=== PATIENT | female | born 1940 | race African-American/Black ===

== ENCOUNTER 2017-03-29 19:42 | Inpatient (IN) | payer MEDICARE ==
[2017-03-29 21:32] LABS: #Eosinphils 0.1 thou/uL (0.0-0.7); #Lymphocytes 0.9 thou/uL (1.20-3.40); #Monocytes 0.8 thou/uL (0.11-0.59); #Neutrophils 10.4 thou/uL (1.40-6.50); %Basophils 0.2 % (0.0-1.0); %Eosinophils 1.1 % (0.0-10.0); %Monocytes 6.3 % (0.0-10.0); %Neutrophils 85.4 % (42.0-75.0); Hemoglobin 12.2 g/dL (12.0-16.0); Mean Corpuscular HGB CONC 32.1 g/dL (32.0-36.0); Mean Corpuscular Hemoglobin 25.1 pg (27.0-31.0); Mean Corpuscular Volume 78.3 fl (81.0-99.0); Mean Platelet Volume 7.3 fL (7.4-10.4); Platelet Count 263 thou/uL (130-400); RBC Distribution Width 14.5 % (11.5-14.5); Red Blood Cell (RBC) Count 4.86 mill/uL (4.20-5.40); White Blood Cell (WBC) Count 12.2 thou/uL (4.8-10.8)
[2017-03-29 21:47] LABS: ALT (SGPT) 13 U/L (8-55); AST (SGOT) 13 U/L (5-34); Albumin 3.8 g/dL (3.4-4.8); Alkaline Phosphatase 104 U/L (40-150); Anion Gap 18 mmol/L (10-20); BUN (Urea Nitrogen) 14 mg/dL (9.8-20.1); Bilirubin, Total 0.3 mg/dL (0.2-1.2); Calc. Creatinine Clearance 0 mL/min (70-130); Calcium 9.8 mg/dL (7.8-10.44); Carbon Dioxide 21 mmol/L (23-31); Chloride 101 mmol/L (98-107); Estimated GFR-MDRD 57; Globulin 3.7 g/dL (2.4-3.5); Glucose 145 mg/dL (83-110); Protein, Total 7.5 g/dL (6.0-8.3); Sodium 136 mmol/L (136-145)
[2017-03-29 22:30] LABS: Acetaminophen Less than 6.0 mcg/mL (10.0-30.0); Alcohol Less than 10 mg/dL (Less than 10); Salicylate Less than 8.0 mg/dL (15.0-30.0)
[2017-03-29 22:44] LABS: CKMB 2.8 ng/mL (0-6.6); Troponin I Less than 0.010 ng/mL (< 0.028)
--- NOTE | 2017-03-29 22:48 | CT ---
CT BRAIN WITHOUT CONTRAST 03/29/17 HISTORY: New onset seizures. FINDINGS: Comparison made with exam of 09/01/07. There are changes of chronic small vessel ischemic disease in the periventricular white matter. The v entricular size is appropriate and the basilar cisterns patent. No evidence of infarct, hemorrhage, m idline shift or abnormal extra-axial fluid collections are seen. The bony calvarium is intact. The visualized paranasal sinuses and mastoid air cells are well aerated . IMPRESSION: No CT evidence of acute intracranial process. POS: [facility]
[2017-03-30 05:20] LABS: Amphetamine Not Detected (NotDetected); Barbiturates Screen Not Detected (NotDetected); Benzodiazepine Screen Not Detected (NotDetected); Cocaine Metabolite Screen Not Detected (NotDetected); Medtox Control Line Valid? VALID (VALID); Medtox Reader # READER 1; Methadone Not Detected (NotDetected); Methamphetamine Not Detected (NotDetected); Opiate Screen Not Detected (NotDetected); Oxycodone Screen Not Detected (NotDetected); Phencyclidine (PCP) Not Detected (NotDetected); THC/Cannabinoid Screen Not Detected (NotDetected); Tricyclic Screen Not Detected (NotDetected)
--- NOTE | 2017-03-30 12:25 | MRI ---
BRAIN MRI WITH AND WITHOUT CONTRAST: Date: 03-30-17 Comparison: None. History: New onset seizures. Technique: Multiplanar, multisequence MR imaging of the brain provided with and without contrast gianfranco bach the seizure protocol. FINDINGS: The diffusion weighted imaging demonstrates no evidence for acute infarction. The coronal gradient echo imaging demonstrates no evidence for intracranial hemorrhage. Regional bone marrow signal intensity appears grossly unremarkable. Incidental note is made of a part ially empty sella turcica. The imaged paranasal sinuses/mastoid air cells appear grossly unremarkable. There is moderate diffuse cerebral volume loss with associated prominence of the CSF containing space s. There is extensive periventricular, deep, and subcortical white matter T2 and FLAIR hyperintensity , evidence of significant small vessel disease. Hippocampi are grossly symmetric in size, structure, and signal intensity. Post contrast imaging demo nstrates no abnormal enhancement within the brain parenchyma. IMPRESSION: 1. Prominent small vessel disease and cerebral volume loss. POS: [facility]
[2017-03-30 14:07] VITALS: BMI 27.2
[2017-03-30] MEDS ORDERED: Lisinopril 10 MG TAB PO SCH (18:30)
[2017-03-30] MEDS: cloNIDine 0.1 MG TAB PO PRN (22:05)
--- NOTE | 2017-03-31 05:50 | HP ---
DATE OF ADMISSION: 03/29/2017 REASON FOR ADMISSION AND CHIEF COMPLAINT: Seizure episode. HISTORY OF PRESENT ILLNESS: Ms. Lozada is a 76-year-old -Cuban female with past medical hi story of hyperlipidemia, anxiety and depression, who was brought by the family because of seizure epi sode. The patient is a poor historian who cannot give any history. Regarding to the ER physician's note, the patient had an episode of seizure, which lasted about 2-2.5 minutes. She lost control of b ladder, was confused after the episode like a postictal state. She never had this kind of incident b efore. No history of fall. No chest pain. No shortness of breath, so the [facility] and says she had like a generalized tonic-clonic seizures. In the ER, the patient was evaluated and found to have normal workup. The patient is being admitted for further evaluation and management and was also found to have elevated blood pressure in the ER. PAST MEDICAL HISTORY: Includes hyperlipidemia and history of anxiety and depression, but not on any medications. PAST SURGICAL HISTORY: Nothing significant. CURRENT MEDICATIONS: None. ALLERGIES: NKDA. FAMILY HISTORY: Nothing of interest. SOCIAL HISTORY: The patient lives with her , has no children. No history of smoking. No his tory of alcohol intake. REVIEW OF SYSTEMS: Cardiovascular: No chest pain. No shortness of breath. Respiratory: No fever or cough. Gastrointestinal: No nausea or vomiting. No abdominal pain. Genitourinary: No dysuria or hematuria. Central Nervous System: No headache, no dizziness. PHYSICAL EXAMINATION: GENERAL: The patient is alert, awake and oriented x3. VITAL SIGNS: Temperature 98, pulse 96, respirations 20 and blood pressure 188/84. HEENT: Head is normocephalic and atraumatic. Pupils are equal and reactive. Nasopharynx is pink an d moist. NECK: Supple. No JVD. LUNGS: Bilateral air entry present. No rales, no rhonchi. HEART: S1, S2 regular. ABDOMEN: Soft. No distention, no tenderness. Normal bowel sounds. RECTAL: Deferred. CENTRAL NERVOUS SYSTEM: The patient is alert, awake and oriented x2. Motor system power 4/5 in all extremities. Deep tendon reflexes 2+ bilaterally. Plantars downgoing. Sensory intact. LABORATORY AND X-RAY FINDINGS: CBC shows a WBC of 12, hemoglobin 12, hematocrit 38 and platelets 263 . Metabolic panel: Sodium 136, potassium 4, chloride 101, CO2 of 21, urea nitrogen 14, creatinine 1 .1 and glucose 140. CK-MB 2.8, troponin I less than 0.010. Urine drug screen negative. CT of the b rain, no evidence of acute intracranial process. EKG showed normal sinus rhythm, no acute ST-T wave changes seen. ASSESSMENT: 1. Possible new onset seizure. 2. History of hyperlipidemia. 3. History of anxiety and depression. 4. Hypertension, uncontrolled. PLAN: 1. Vital signs q.4 hours. 2. Activity: As tolerated. 3. Allergies: NKDA. 4. Diet: Regular. 5. Hep-Lock. 6. Lisinopril 10 mg daily. 7. Lipid profile in the morning. 8. We will obtain EEG. 9. MRI of the brain. 10. Neurology consult.
[2017-03-31 06:11] LABS: Cardiac Risk 4.4 (Less than 4.5)
--- NOTE | 2017-03-31 08:53 | EEG ---
Referring Physician: Rachid STEEN EEG # [id number] TEST TYPE: ROUTINE PORTABLE INPATIENT REPORT: AN EEG USING THE INTERNATIONAL TEN-TWENTY SYSTEM OF ELECTRODE PLACEMENT WAS PERFORMED. The waking background is a medium amplitude well modulated 9-10 hertz alpha frequency. The patient remained awake throughout the study. Photic stimulation was unremarkable. No epileptiform features were associated with the patient's rhythmic movements. IMPRESSION: THIS IS A NORMAL AWAKE EEG WITHOUT EVIDENCE OF SEIZURE ACTIVITY ASSOCIATED WITH HER MOVEMENTS. Air Export Agent: JOEY Mud Jack Nozzleman: [email or web address] MARI
[2017-03-31] MEDS ORDERED: Lisinopril 10 MG TAB PO SCH ×2 (09:00→13:45)
[2017-03-31] MEDS: cloNIDine 0.1 MG TAB PO PRN (11:59)
[2017-03-31] MEDS ORDERED: levETIRAcetam 500 MG TAB PO SCH (19:00)
--- NOTE | 2017-04-01 01:39 | CON ---
DATE OF CONSULTATION: 03/31/2017 REFERRING PHYSICIAN: Dr. Brian Richardson. REASON FOR CONSULTATION: Seizure. HISTORY OF PRESENT ILLNESS: Ms. Lozada is a pleasant 76-year-old -Welsh female who has bee n consulted for evaluation of seizure. The patient's is at the bedside, who provides the his tory. He reports that the patient was sitting down and suddenly became unresponsive. He tried to ca ll her name but was not responding. Then, a few seconds later, she started having generalized tonic- clonic seizure. This lasted approximately 5 minutes. He had called EMS. On arrival of EMS initiall y, the patient was drowsy and sleepy; however, she had another episode of generalized tonic-clonic co nvulsions that lasted again approximately 5 minutes. She did not have any tongue biting, but there w as loss of bladder control noted. She did have postictal confusion that lasted until she was in the ER and she had no recollection of how she got to the ER. She did not have any headache, chest pain, palpitation, nausea, vomiting, abdominal pain, numbness, tingling, or weakness. She has no prior his tory of seizure disorder. No prior history of head trauma or DECORATION CHECKER infection and no family history of seizures. PAST MEDICAL HISTORY: Significant for hyperlipidemia, anxiety, and depression. PAST SURGICAL HISTORY: Not significant. SOCIAL HISTORY: She lives with her . She denies smoking, alcohol use, or illicit drug use. FAMILY HISTORY: Noncontributory. CURRENT MEDICATIONS: None. ALLERGIES: No known drug allergies. REVIEW OF SYSTEMS: As mentioned in the HPI, otherwise negative. PHYSICAL EXAMINATION: VITAL SIGNS: Blood pressure of 121/58, pulse of 76, temperature of 98.5, respirations of 16, O2 sats of 99% on room air. GENERAL: Well-developed, well-nourished, -Welsh female, in no apparent distress. RESPIRATORY: Clear to auscultation bilaterally. CARDIOVASCULAR: Regular rate and rhythm. NEUROLOGIC: Mental status: The patient is awake, alert, oriented x3. Speech and language: Fluent speech. Cranial nerves: Pupils are 3 mm and reactive. Visual mayers are intact. Extraocular muscl es are intact. No nystagmus noted. Face is symmetric. Tongue and uvula are midline. Motor exam sh owed normal tone and bulk with a 5/5 strength in both upper and lower extremities. Sensory: Sensati on is intact and symmetric. Deep tendon reflexes 2+ reflexes in both upper and lower extremities. B abinski: Plantar responses flexion bilaterally. Coordination: Intact to [id number] and fin jarad tapping bilaterally. Gait and Romberg are normal. LABORATORY DATA: Reviewed, which included CBC, CMP, lipid profile, urine drug screen, serum alcohol level which is significant for WBC of 12.2, glucose of 145, otherwise unremarkable. IMAGING STUDIES: MRI of the brain without contrast was reviewed, which showed no acute intracranial abnormality. EEG report was reviewed, which is essentially normal. IMPRESSION: Generalized tonic-clonic seizure. Ms. Lozada is a pleasant 76-year-old -Welsh female who presented with 2 episodes of generalized tonic-clonic seizure. At this time, I would rec ommend starting the patient on Keppra 500 mg b.i.d. The patient is okay to be discharged to home. I have discussed with the patient about seizure precautions including no driving, no climbing ladders, no operation of heavy machinery, etc. She will follow up with my clinic in 4 weeks post discharge.
[2017-04-01 07:52] VITALS: BP 134/84; TEMP 98.3
[2017-04-01] MEDS ORDERED: Lisinopril 20 MG TAB PO SCH (09:00)
--- NOTE | 2017-04-02 13:02 | DIS ---
DATE OF ADMISSION: 03/30/2017 DATE OF DISCHARGE: 04/01/2017 ADMITTING DIAGNOSES: 1. New onset seizures. 2. Hyperlipidemia. 3. History of anxiety and depression. 4. Uncontrolled hypertension. FINAL DIAGNOSES: 1. New onset seizures, started on medications. 2. Hypertension, uncontrolled, improved. 3. Hyperlipidemia. 4. History of anxiety and depression. BRIEF SUMMARY OF HOSPITAL COURSE: Ms. Lozada is a 76-year-old -Armenian female admitted becau se of one episode of seizure, which is a new onset. She had tonic clonic seizures followed with post ictal. The patient was monitored in the hospital. Her blood pressure was high. She was found to stark ve high blood pressure. She was started on medications. After medications were started, her blood p ressure was controlled. A Neurology consult and the patient was seen by Dr. Coughlin. He suggested to amee Reese in view of new onset of seizures. EEG was unremarkable. The patient did not have any mo re seizures in the hospital. MRI of the brain unremarkable, so she is being discharged. At the time of discharge, she was stable. Her vital signs were stable. Lungs clear. Heart sounds regular. Ab domen was soft and nontender. Bowel sounds present. DISCHARGE MEDICATIONS: Include; 1. Keppra 500 b.i.d. 2. Lisinopril 20 daily. FOLLOWUP: The patient will come for followup in 2 weeks.
== END 2017-04-01 10:45 | disposition home or self-care (01) | DRG 101 ==
LOC: ERS 19:42 → ERHOLD 03-30 00:10 → 2SE 03-30 16:51
PROVIDERS: ADMIT Internal Medicine; ATTEND Internal Medicine
DX: G40.309 Generalized idiopathic epilepsy and epileptic syndromes, not intractable, without status epilepticus (principal); E78.5 Hyperlipidemia, unspecified; I10 Essential (primary) hypertension; F41.8 Other specified anxiety disorders
CPT/HCPCS: 36415; 36416; 70450; 70553; 80053; 80061; 80306; 80307; 82553; 84443; 84484; 85025; 93005; 95816; 95819

== ENCOUNTER 2018-07-26 17:08 | Inpatient (IN) | payer MEDICARE, BC ==
[~2018-07-26 17:08] MED LIST: ISOVUE-370 76%-LOCM 1 ML ONE
[2018-07-26] MEDS ORDERED: Succinylcholine Chloride 20 MG/ML 10 ml SYRINGE FS ONE (17:21)
--- NOTE | 2018-07-26 17:26 | CT ---
CT Brain WO Con History: [Unresponsive. Seizure.] Comparison: CT brain March 29, 2017 Findings: There is extensive periventricular and deep white matter chronic microangiopathic changes. There is abnormal loss of fisher-white matter differentiation of the anterior left insula which does appear new. Mild ex vacuo dilatation of the ventricular system and extra-axial CSF spaces. No acute hemorrhage. Calvarium is intact. Impression: Concern for acute left insular infarction, MCA territory.
[2018-07-26] MEDS ORDERED: Acetaminophen 650 MG Suppository ONE (17:34)
[2018-07-26] MEDS ORDERED: Propofol 1,000 MG/100 ML VIAL IV ONE (17:45)
--- NOTE | 2018-07-26 17:52 | RAD ---
XR Chest 1 View Portable History: [Chest pain] Comparison: Radiograph 2008 Findings: There is extensive bilateral upper lobe airspace opacities. No pneumothorax. Endotracheal t ube tip is above the arnaldo approximately 2.3 cm. No acute osseous abnormality. Impression: Extensive perihilar and upper lobe airspace opacity suggesting pulmonary edema which may be noncardiogenic.
[2018-07-26 18:06] LABS: Hemoglobin 10.9 g/dL (12.0-16.0); Red Blood Cell (RBC) Count 4.83 mill/uL (4.20-5.40); White Blood Cell (WBC) Count 13.8 thou/uL (4.8-10.8)
[2018-07-26 18:07] LABS: Mean Corpuscular HGB CONC 30.3 g/dL (32.0-36.0); Mean Corpuscular Hemoglobin 22.6 pg (27.0-31.0); Mean Corpuscular Volume 74.7 fL (78.0-98.0); Mean Platelet Volume 7.5 fL (7.4-10.4); Platelet Count 398 thou/uL (130-400); RBC Distribution Width 16.8 % (11.5-14.5)
[2018-07-26 18:13] LABS: Prothrombin Time 13.4 SEC (12.0-14.7)
[2018-07-26 18:17] LABS: Bilirubin Negative (Negative); Blood, Urine Moderate (Negative); Clarity CLEAR (Clear); Glucose, Urine (Dipstick) 100 mg/dL (Negative); Leukocyte Negative (Negative); Nitrite Negative (Negative); Protein, Urine (Dipstick) 100 mg/dL (Neg-Trace); Specific Gravity, Urine 1.012 (1.002-1.036)
[2018-07-26 18:20] LABS: Bacteria/HPF None Seen HPF (None Seen); Hyaline Casts/LPF 0-3 HYALINE CAST LPF (0-3 Hyaline); Pathc Cast-AUWi Flag 0.13 (0-2.49); RBC/HPF 0-3 HPF (0-3); Squamous Epithelial 0-3 HPF (0-3); WBC/HPF 0-3 HPF (0-3)
[2018-07-26 18:21] LABS: Actual Bicarbonate (HCO3a) 18.7 mEq/L (22-28); Analyzer IN Cardio ER; Base Excess (BEa) -4.8 mEq/L (-2.0 to +3.0); CO2 Tension 29.5 mmHg (35.0-45.0); Calcium, Ionized 1.08 mmol/L (1.12-1.30); Carboxyhemoglobin (COHb) 1.1 gm% (0.0-3.0); Hemoglobin (Hb) 11.3 g/dL (12.0-16.0); Potassium - ABG Lab 3.03 mmol/L (3.70-5.30); pH, Arterial 7.42 (7.35-7.45)
[2018-07-26 18:23] LABS: ALT (SGPT) 7 U/L (8-55); AST (SGOT) 16 U/L (5-34); Acetaminophen Less than 6.0 mcg/mL (10.0-30.0); Albumin 3.7 g/dL (3.4-4.8); Alcohol Less than 10 mg/dL (Less than 10); Alkaline Phosphatase 117 U/L (40-150); Anion Gap 19 mmol/L (10-20); BUN (Urea Nitrogen) 10 mg/dL (9.8-20.1); Bilirubin, Total 0.3 mg/dL (0.2-1.2); Calc. Creatinine Clearance 0 mL/min (70-130); Calcium 9.1 mg/dL (7.8-10.44); Carbon Dioxide 18 mmol/L (23-31); Chloride 100 mmol/L (98-107); Estimated GFR-MDRD 70; Globulin 3.8 g/dL (2.4-3.5); Glucose 173 mg/dL (83-110); Potassium 4.6 mmol/L (3.5-5.1); Protein, Total 7.5 g/dL (6.0-8.3); Salicylate Less than 8.0 mg/dL (15.0-30.0); Sodium 132 mmol/L (136-145)
[2018-07-26 18:25] LABS: Amphetamine Not Detected (NotDetected); Barbiturates Screen Not Detected (NotDetected); Benzodiazepine Screen Not Detected (NotDetected); Cocaine Metabolite Screen Not Detected (NotDetected); Medtox Control Line Valid? VALID (VALID); Medtox Reader # READER 4; Methadone Not Detected (NotDetected); Methamphetamine Not Detected (NotDetected); Opiate Screen Not Detected (NotDetected); Oxycodone Screen Not Detected (NotDetected); Phencyclidine (PCP) Not Detected (NotDetected); THC/Cannabinoid Screen Not Detected (NotDetected); Tricyclic Screen Not Detected (NotDetected)
[2018-07-26] MEDS ORDERED: cefTRIAXone\\ROCEPHIN 2 GM VIAL ONE (18:25)
[2018-07-26] MEDS ORDERED: Azithromycin 500 MG VIAL ONE (18:25)
[2018-07-26 18:29] LABS: #Eosinphils 0.1 thou/uL (0.0-0.7); #Lymphocytes 0.8 thou/uL (1.20-3.40); #Monocytes 0.7 thou/uL (0.11-0.59); #Neutrophils 12.2 thou/uL (1.40-6.50); %Basophils 0.1 % (0.0-1.0); %Eosinophils 0.6 % (0.0-10.0); %Lymphocytes 5.7 % (21.0-51.0); %Monocytes 5.2 % (0.0-10.0); %Neutrophils 88.4 % (42.0-75.0)
--- NOTE | 2018-07-26 18:31 | CT ---
CTA Angio Head W WO Con History: [Stroke] Comparison: CT brain same day Findings: CT angiogram of the head and neck was performed after the intravenous administration of con trast. 3-D rendering provided. The tip of the endotracheal tube is now within the right mainstem bronchus, advanced from the radiogr aph. The esophagus is markedly dilated. Extensive opacities are present throughout both upper lobes suggesting edema. Visualized portion of the transverse aorta is normal. No acute fracture of the cervical spine is appreciated. Paraspinal soft tissues are unremarkable. Globes are normal. Muscles: Origins of both vertebral arteries are patent. The vertebral arteries are codominant. No foc al stenosis, thrombosis, nor aneurysm formation. Portion of the right common carotid artery is patent. Moderate atherosclerotic plaque of the right ca rotid bulb. Thoracic criteria is approximately 50% stenosis of the proximal right internal carotid artery due to calcific plaque the cervical, petrous, cavernous, and supraclinoid internal carotid art maricruz is patent. Origin of the left common carotid artery is patent. Perigastric criteria there is also approximately 50% narrowing of the proximal left internal carotid artery due to calcific plaque. The cervical, petrous, cavernous, and supraclinoid internal carotid artery is patent. [place] is patent. No stenosis, thrombosis, nor aneurysm formation. Impression: 1. Patent [place] of [place] without significant stenosis, thrombosis, nor aneurysm formation. 2. 50% narrowing both proximal internal carotid arteries near the carotid bulb due to calcific plaque . 3. Patent posterior circulation. 4. Endotracheal tube tip in the right mainstem bronchus approximately 5 mm. Recommend retracting 2 cm . 5. Severe opacities throughout the lungs which are dense may reflect hemorrhage, edema or pneumonia. Given the extensive peripheral septal thickening, hemorrhage or edema are favored. Code CR
[2018-07-26 18:37] LABS: Band 20 % (5-11); Eosinophils 1 % (0-10); Hypochromia SLIGHT = 6-15 cells (100X) (0-5/hpf); Lymphocytes 8 % (21-51); MDiff Complete? YES; Metamyelocyte 1 % (0-0); Microcytosis SLIGHT = 6-15 cells (100X) (0-5/hpf); Monocytes 5 % (0-10); Neutrophil 65 % (42-75); Platelet Morphology Comment Appears Adequate; Polychromasia SLIGHT = 2-3 cells (100X) (0-2/hpf)
[2018-07-26 18:40] LABS: O2 Tension (PaO2) 45.6 mmHg (> 70.0)
[2018-07-26 18:41] LABS: ALV-art Gradient 274.025 (0-20); Puncture Site LRA
[2018-07-26 18:45] LABS: CKMB 5.9 ng/mL (0-6.6)
[2018-07-26] MEDS ORDERED: Ventilator Sedation Protocol 1 EACH FS SCH (19:45)
[2018-07-26] MEDS ORDERED: CCU Electrolyte Replacement 1 EACH FS SCH (19:45)
[2018-07-26] MEDS ORDERED: Propofol 1,000 MG/100 ML VIAL IV PRN (19:52)
[2018-07-26] MEDS ORDERED: Potassium Phosphate 15 MMOL in Sodium Chloride 0.9% 250 ML 250 ML IV PRN (19:52)
[2018-07-26] MEDS ORDERED: Potassium Chloride 40 MEQ in Premix Bag 1 BAG IVPB PRN (19:52)
[2018-07-26] MEDS ORDERED: Morphine 2 MG/ML SYRINGE SLOW IVP PRN (19:52)
[2018-07-26] MEDS ORDERED: Lorazepam 2 MG/ML VIAL SLOW IVP PRN (19:52)
[2018-07-26] MEDS ORDERED: Propofol BOLUS 1,000 MG/100 ML VIAL IV PRN (19:52)
[2018-07-26] MEDS ORDERED: Magnesium 2 GM/50 ML 2 GM in Premix Bag 1 BAG IVPB PRN (19:52)
[2018-07-26] MEDS ORDERED: fentaNYL Citrate/PF 2,000 MCG in Sodium Chloride 0.9% 60 ML IV SCH (19:52)
[2018-07-26] MEDS ORDERED: Fentanyl BOLUS 250 ML IVPB PRN (19:52)
[2018-07-26] MEDS ORDERED: Potassium Phosphate 9 MMOL in Sodium Chloride 0.9% 100 ML IVPB PRN (19:52)
[2018-07-26] MEDS ORDERED: Magnesium Oxide 400 MG TAB PO PRN ×2 (19:52)
[2018-07-26] MEDS ORDERED: CCU ELECTROLYTE REPLACEMENT PROTOCOL FS PRN (19:52)
[2018-07-26] MEDS ORDERED: Potassium Phosphate 12 MMOL in Sodium Chloride 0.9% 250 ML 250 ML IV PRN (19:52)
[2018-07-26] MEDS ORDERED: PHOS-NAK 1 PKT PACK PO PRN ×2 (19:52)
[2018-07-26] MEDS ORDERED: Potassium Chloride 20 MEQ TAB PO PRN (19:52)
[2018-07-26] MEDS ORDERED: DISCONTINUE PREVIOUS NARCOTIC PAIN MEDICATIONS AND BENZODIAZEPINES FS SCH (19:52)
[2018-07-26] MEDS ORDERED: Sodium Chloride 0.9% (PF) 10 ML VIAL FS PRN (20:49)
[2018-07-26] MEDS ORDERED: Labetalol HCl 100 MG/20 ML VIAL SLOW IVP PRN (20:51)
[2018-07-26 21:49] LABS: Troponin I 1.497 ng/mL (< 0.028)
[2018-07-26] MEDS ORDERED: Acetaminophen 1,000 MG in Premix Bag 1 BAG IVPB PRN (22:05)
[2018-07-26] MEDS: Sodium Chloride 0.9% 1,000 ML IV SCH (22:12)
[2018-07-26] MEDS: Famotidine/PF 20 mg/2ml Vial SLOW IVP SCH (22:12)
[2018-07-26 22:30] VITALS: BMI 25.4
[2018-07-26 23:32] LABS: Lactic Acid 2.6 mmol/L (0.5-2.2)
[2018-07-27 01:00] LABS: Troponin I 2.508 ng/mL (< 0.028)
--- NOTE | 2018-07-27 01:20 | HP ---
CHIEF COMPLAINT: History of fall, recurrent seizures, and altered mental status. HISTORY OF PRESENT ILLNESS: Ms. Lozdaa is a 77-year-old Afro [place] female with past medical history of seizure disorder and hypertension. It was noted by the that she was actually found on the floor. He was outside mowing the lawn; when he came inside the house, she was found sitting on the floor and he noted an abrasion on the back of the head and she got up and went to bathroom, later came back and laid down, then she became unresponsive according to him. After a few minutes later, she started having generalized seizures. They called the EMS already because of her unresponsiveness. She did not complain of any chest pain. No shortness of breath. No nausea or vomiting. No fever. He is not sure whether she is taking her seizure medications regularly. EMS was called. EMS found the patient with recurrent seizures. She was given Ativan for seizure activity. The patient was also found to be in respiratory distress and unresponsive. pt had another seizure in ER. She was intubated and put on the ventilator. Initial brain scan revealed possible stroke, but CTA was done and did not reveal any acute infarct. The patient did have a fever of 102.4 in the ER, so she was given Rocephin and Zithromax, and is being admitted to CCU for further management. Her source of fever is possible pneumonia. PAST MEDICAL HISTORY: 1. Hypertension. 2. Seizure disorder. Actually, her seizure was first diagnosed last year in March 2017. 3. History of anxiety and depression. PAST SURGICAL HISTORY: Nothing significant. CURRENT MEDICATIONS: The patient is supposed to be on Keppra 500 b.i.d. and lisinopril 20 mg daily. ALLERGIES: NKDA. FAMILY HISTORY: Nothing contributory. SOCIAL HISTORY: She lives with her . No history of smoking. No history of alcohol intake. REVIEW OF SYSTEMS: Unable to obtain. The patient is unresponsive. PHYSICAL EXAMINATION: GENERAL: The patient is intubated, on ventilator support. VITAL SIGNS: Temperature 102.4, pulse initially 130, came down to 100; respirations 26, blood pressure 170/114. HEENT: The patient is intubated and could not be examined. Pupils are equal and reacting to light. LUNGS: Lot of upper airway secretions present. Rhonchi present. HEART: S1 and S2. Regular. ABDOMEN: Soft. No distention. No tenderness. Normal bowel sounds present. RECTAL: Deferred. CENTRAL NERVOUS SYSTEM: The patient is moving all extremities. LABORATORY DATA: CBC shows WBC 13.8, hemoglobin 10.9, hematocrit 36, platelets 398. Prothrombin time 13. INR 1. ABG showed pH 7.42, pCO2 of 29, pO2 of 45, saturation 81%, this was before intubation. Metabolic panel; sodium 132, potassium 4.6, chloride 100, CO2 of 18, BUN 20, creatinine 0.9. Glucose 173. CK-MB 5.9. Troponin I 0.84. BNP 75. Urinalysis is negative. Urine toxicology is clear. IMAGING DATA: EKG showed sinus tachycardia with heart rate of 128. No acute ST -T wave changes seen. Chest x-ray shows extensive perihilar and upper lobe airspace opacity, possibly pulmonary edema, noncardiogenic. CT of the brain, concern for acute left insular infarction. CT angio of the [place] showed no evidence of stenosis, thrombosis, or aneurysm. but showed opacities in the lungs. ASSESSMENT: 1. Acute respiratory failure. 2. Fever ,possible sepsis. due to Pneumonia, bilateral 3. Elevated troponin I, rule out myocardial infarction. 4. Recurrent seizures. 5. Metabolic encephalopathy. 6. Hypertension. 7. ? pulmonary edema. PLAN: 1. Admit to CCU. 2. Ventilator support. 3. Seizure precautions. 4. Diet n.p.o. 5. Hep-Lock. 6. Keppra IV piggyback. 7. Rocephin 2 g IV piggyback daily. 8. Zithromax 500 mg IV piggyback daily. 9. Protonix 40 mg IV piggyback daily. 10. Cultures. 11. Neurology consult. 12. Consult Dr. Abreu. 13. Troponin I q.6 hours x2. Her condition is critical and her prognosis is poor. Job ID: [id number] MTDD
--- NOTE | 2018-07-27 02:06 | CON ---
DATE OF CONSULTATION: CONSULTING PHYSICIAN: Brian Richardson MD REASON FOR CONSULTATION: Critical care management following encompassed 75 minutes of critical care time spent with the patient. HISTORY OF THE PRESENT ILLNESS: Mrs. Lozada is a female, who apparently had a witnessed seizure at home. There is a question whether or not she fell and hit her head. Upon presenting to the ER, she had another seizure and she was subsequently intubated. She had a CT which initially suggested possible stroke, but I am told her CT angiogram was negative. PAST MEDICAL HISTORY: 1. Hypertension. 2. Hyperlipidemia. PAST SURGICAL HISTORY: None. MEDICATIONS: Prior to admission, not known. ALLERGIES: NONE. FAMILY MEDICAL HISTORY: Unremarkable. SOCIAL HISTORY: Nonsmoker. Does not consume alcohol. Lives at home with her . REVIEW OF SYSTEMS: Cannot be obtained as the patient is currently on mechanical ventilation. PHYSICAL EXAMINATION: VITAL SIGNS: Temperature is 102.6, pulse 115, blood pressure 149/88, respiratory rate 26. The patient is currently sedated on mechanical ventilation. HEENT: Pupils are reactive. Sclerae are icteric. Oropharynx is clear. NECK: No adenopathy or JVD. LUNGS: Fairly clear. CARDIOVASCULAR: S1, S2. Slightly tachycardic without murmur. ABDOMEN: Soft, nontender. No hepatosplenomegaly. EXTREMITIES: No clubbing, cyanosis, or edema. She will withdraw to pain, all 4 extremities. LABORATORY DATA: White blood cell count 13.8, hematocrit 36.1, and platelet count 398 with 65% neutrophils, 20% bands. INR 1.0, PT 13.4. Sodium 132, potassium 4.6, chloride 100, CO2 of 18, BUN 10, creatinine 0.9, glucose 173, troponin 0.8, albumin 3.8. Blood gas; pH 7.42, pCO2 of 29, PO2 of 45-suspected venous gas. Urinalysis showed proteinuria, glucosuria, no white cells. Tox screen was negative. Chest x-ray shows perihilar infiltrates bilaterally. Head CT demonstrates a concern for left insular infarction, but this was not confirmed by the CT angio. ASSESSMENT: 1. Bilateral pneumonia, left greater than right. 2. Acute hypoxic respiratory failure, requiring mechanical ventilation. 3. Sepsis syndrome. 4. Mild metabolic acidosis mild hyponatremia. 5. Slightly elevated troponin. PLAN/RECOMMENDATIONS: 1. I have changed her ventilator over to pressure control ventilation and have increased her PEEP and this seems to have helped her oxygenation significantly. 2. I agree with broad-spectrum IV antibiotics including Rocephin and azithromycin. 3. IV fluids with normal saline. 4. Troponin will be rechecked later tonight. 5. Seizure management per Dr. Richardson. 6. DVT prophylaxis with PlexiPulse. Consider starting Lovenox tomorrow. 7. GI prophylaxis with Protonix. Job ID: [id number]
[2018-07-27 04:43] LABS: #Lymphocytes 1.2 thou/uL (1.20-3.40); #Monocytes 0.9 thou/uL (0.11-0.59); #Neutrophils 7.1 thou/uL (1.40-6.50); %Basophils 0.2 % (0.0-1.0); %Eosinophils 0.5 % (0.0-10.0); %Lymphocytes 13.2 % (21.0-51.0); %Neutrophils 76.1 % (42.0-75.0); Hemoglobin 9.4 g/dL (12.0-16.0); Mean Corpuscular HGB CONC 31.9 g/dL (32.0-36.0); Mean Corpuscular Hemoglobin 22.8 pg (27.0-31.0); Mean Corpuscular Volume 71.4 fL (78.0-98.0); Mean Platelet Volume 7.5 fL (7.4-10.4); Platelet Count 324 thou/uL (130-400); RBC Distribution Width 16.4 % (11.5-14.5); Red Blood Cell (RBC) Count 4.13 mill/uL (4.20-5.40); White Blood Cell (WBC) Count 9.4 thou/uL (4.8-10.8)
[2018-07-27 04:58] LABS: Anion Gap 15 mmol/L (10-20); BUN (Urea Nitrogen) 9 mg/dL (9.8-20.1); Calc. Creatinine Clearance 66 mL/min (70-130); Calcium 8.1 mg/dL (7.8-10.44); Carbon Dioxide 19 mmol/L (23-31); Chloride 104 mmol/L (98-107); Estimated GFR-MDRD 86; Glucose 137 mg/dL (83-110); Sodium 135 mmol/L (136-145)
[2018-07-27 05:04] LABS: Potassium 2.6 mmol/L (3.5-5.1)
[2018-07-27] MEDS: Sodium Chloride 0.9% 1,000 ML IV SCH ×2 (05:56→20:17)
[2018-07-27] MEDS: Potassium Chloride 40 MEQ in Sodium Chloride 0.9% 250 ML 250 ML IVPB PRN ×2 (05:57→18:07)
--- NOTE | 2018-07-27 06:24 | RAD ---
XR Chest 1 View Portable HISTORY: Follow-up of pneumonia. COMPARISON: Prior day's exam. FINDINGS: Endotracheal and NG tubes are in satisfactory position. The extensive parahilar and upper l obe alveolar lung changes show significant improvement as compared the prior examination suggesting resolving edema. IMPRESSION: Findings most compatible with resolving pulmonary edema change.
[2018-07-27 06:49] LABS: Actual Bicarbonate (HCO3a) 17.5 mEq/L (22-28); Base Excess (BEa) -2.3 mEq/L (-2.0 to +3.0); Calcium, Ionized 1.05 mmol/L (1.12-1.30); Hemoglobin (Hb) 9.8 g/dL (12.0-16.0); Potassium - ABG Lab 2.73 mmol/L (3.70-5.30)
[2018-07-27 06:50] LABS: ALV-art Gradient 110.075 (0-20); CO2 Tension 17.7 mmHg (35.0-45.0); Puncture Site RRA; pH, Arterial 7.61 (7.35-7.45)
--- NOTE | 2018-07-27 08:29 | PRG ---
DATE OF SERVICE: 07/27/2018 35 minutes critical care time. SUBJECTIVE: The patient remains on mechanical ventilation. She will wake up, look around the room. Does not really follow commands well. OBJECTIVE: VITAL SIGNS: Temperature 100.1, pulse 86, blood pressure 141/82, O2 saturation 100%. A 24-hour intake 789, output 1235. HEENT: Unremarkable. NECK: No JVD. LUNGS: Clear to auscultation. CARDIAC: S1, S2. Slightly tachycardic. ABDOMEN: Soft. Nontender. EXTREMITIES: No edema. IMAGING DATA: Chest x-ray shows bilateral apical infiltrates with air bronchograms. LABORATORY DATA: Sodium 135, potassium 2.6, chloride 104, CO2 of 19, BUN 9, creatinine 0.7, glucose 137. White blood cell count 9.4, hematocrit 29.5, and platelet count 324. INR 1.0. PH 7.61, pCO2 of 17, PO2 of 153 on SIMV rate 16, inspiratory pressure of 18, PEEP 10, FiO2 was 40%. ASSESSMENT: 1. Aspiration pneumonitis. 2. Status post seizure. 3. Acute hypoxic respiratory failure, requiring mechanical ventilation. 4. Seizure disorder. 5. Hypokalemia. PLAN: 1. Replace potassium. 2. Extubate. 3. Continue IV Keppra. 4. Await Neurology consultation. 5. Continue IV antibiotics. Job ID: [id number]
[2018-07-27] MEDS ORDERED: Prevnar 13-Val Conj/PF 0.5 ML SYRINGE IM ONE (09:00)
[2018-07-27] MEDS: Famotidine/PF 20 mg/2ml Vial SLOW IVP SCH ×2 (09:53→20:16)
--- NOTE | 2018-07-27 10:57 | CON ---
DATE OF CONSULTATION: 07/27/2018 REASON FOR CONSULTATION: Increased troponin level. HISTORY OF PRESENT ILLNESS: Ms. Jackie Lozada is a 77-year-old patient. She was admitted last night after a seizure. The patient's was outside mowing the lawn, he came inside the house. She was sitting on the floor, noted abrasion in the back of her head. She got up, went to the bathroom and later came back, laid down, became unresponsive, and had seizure. She has previous history of seizure disorder. The patient was given Ativan for seizure activity, was in respiratory distress and became unresponsive, had another seizure in the emergency room, was intubated, put on the ventilator. Initial brain scan revealed possible stroke, but CTA did not reveal acute infarct. The patient had fever of 102.4 in the emergency room. She was given Rocephin and Zithromax. PAST MEDICAL HISTORY: 1. Hypertension. 2. History of seizure disorder. 3. History of anxiety and depression. PAST SURGICAL HISTORY: Negative for any cardiac operations or procedure. MEDICATIONS: She was prescribed to take lisinopril and Keppra, but it is unclear whether she is taking any of these medicines. ALLERGIES: NONE KNOWN. FAMILY HISTORY: Noncontributory. SOCIAL HISTORY: Lives with her . She is usually alert and oriented. No history of smoking. No history of alcohol. REVIEW OF SYSTEMS: Not obtainable, previously intubated, now she is confused. PHYSICAL EXAMINATION: GENERAL: This is a very pleasant elderly woman, resting comfortably. VITAL SIGNS: Her blood pressure is 147/90, pulse 96. HEENT: Eyes, sclerae nonicteric. Mouth, mucous membranes moist. NECK: Supple. No lymphadenopathy. LUNGS: Clear. No wheezing, rales, or rhonchi. CARDIAC: Normal S1, normal S2. There is no murmur, rub, or gallop. ABDOMEN: Soft and nontender. EXTREMITIES: There is no edema. No clubbing or cyanosis. SKIN: Warm and dry. She has good right femoral pulse. IMAGING STUDIES: EKG, normal sinus rhythm, no acute changes. PERTINENT LABORATORY DATA: Troponin level was 1.497 followed by 2.508. She did have lactic acidosis. Lactic acid yesterday was 4.9, normal being up to 2.2. Potassium today is 2.6. However, at that time, the patient had a what looked like respiratory alkalosis. ASSESSMENT: 1. Seizure disorder. 2. History of hypertension. 3. Noncompliance with medications. 4. Increased troponin, probably demand ischemia. PLAN: 1. Echocardiogram to be done. 2. We will follow with you. 3. We will check on the echocardiogram results. Job ID: [id number]
[2018-07-27] MEDS: Pantoprazole 40 MG VIAL IVP SCH (11:10)
[2018-07-27 12:57] LABS: Potassium 3.5 mmol/L (3.5-5.1)
--- NOTE | 2018-07-27 13:32 | CT ---
CTA Angio Head W WO Con CTA Angio Neck W WO Con History: [Stroke] Comparison: CT brain same day Findings: CT angiogram of the head and neck was performed after the intravenous administration of con trast. 3-D rendering provided. The tip of the endotracheal tube is now within the right mainstem bronchus, advanced from the radiogr aph. The esophagus is markedly dilated. Extensive opacities are present throughout both upper lobes suggesting edema. Visualized portion of the transverse aorta is normal. No acute fracture of the cervical spine is appreciated. Paraspinal soft tissues are unremarkable. Globes are normal. Muscles: Origins of both vertebral arteries are patent. The vertebral arteries are codominant. No foc al stenosis, thrombosis, nor aneurysm formation. Portion of the right common carotid artery is patent. Moderate atherosclerotic plaque of the right ca rotid bulb. Thoracic criteria is approximately 50% stenosis of the proximal right internal carotid artery due to calcific plaque the cervical, petrous, cavernous, and supraclinoid internal carotid art maricruz is patent. Origin of the left common carotid artery is patent. Perigastric criteria there is also approximately 50% narrowing of the proximal left internal carotid artery due to calcific plaque. The cervical, petrous, cavernous, and supraclinoid internal carotid artery is patent. [place] is patent. No stenosis, thrombosis, nor aneurysm formation. Impression: 1. Patent [place] without significant stenosis, thrombosis, nor aneurysm formation. 2. 50% narrowing both proximal internal carotid arteries near the carotid bulb due to calcific plaque . 3. Patent posterior circulation. 4. Endotracheal tube tip in the right mainstem bronchus approximately 5 mm. Recommend retracting 2 cm . 5. Severe opacities throughout the lungs which are dense may reflect hemorrhage, edema or pneumonia. Given the extensive peripheral septal thickening, hemorrhage or edema are favored. Transcribed Date/Time: 07/27/2018 1:32 PM
--- NOTE | 2018-07-27 16:28 | RAD ---
Left humerus 2 views HISTORY: Left arm pain. FINDINGS: Humerus is intact. Mild degenerative change of the shoulder and elbow. On the lateral view, unusual appearance of the radial neck is suspicious for an impacted fracture. IMPRESSION: Possible injury to the radial neck. If symptoms are referable to the elbow, please consid er dedicated 4 views elbow exam.
[2018-07-27] MEDS: cefTRIAXone\\ROCEPHIN 2 GM in Sodium Chloride 0.9% 100 ML IVPB SCH (17:49)
[2018-07-27] MEDS ORDERED: Lisinopril 20 MG TAB PO SCH (19:00)
[2018-07-27] MEDS: Azithromycin 250 MG in Sodium Chloride 0.9% 250 ML 250 ML IVPB SCH (20:16)
[2018-07-28] MEDS: Sodium Chloride 0.9% 1,000 ML IV SCH (05:25)
[2018-07-28 07:02] LABS: #Eosinphils 0.2 thou/uL (0.0-0.7); #Lymphocytes 1.2 thou/uL (1.20-3.40); #Monocytes 1.4 thou/uL (0.11-0.59); #Neutrophils 9.9 thou/uL (1.40-6.50); %Basophils 0.2 % (0.0-1.0); %Eosinophils 1.3 % (0.0-10.0); %Lymphocytes 9.2 % (21.0-51.0); %Monocytes 10.8 % (0.0-10.0); %Neutrophils 78.5 % (42.0-75.0); Hemoglobin 9.6 g/dL (12.0-16.0); Mean Corpuscular HGB CONC 30.8 g/dL (32.0-36.0); Mean Corpuscular Hemoglobin 22.6 pg (27.0-31.0); Mean Corpuscular Volume 73.6 fL (78.0-98.0); Mean Platelet Volume 7.5 fL (7.4-10.4); Platelet Count 303 thou/uL (130-400); RBC Distribution Width 16.7 % (11.5-14.5); Red Blood Cell (RBC) Count 4.23 mill/uL (4.20-5.40); White Blood Cell (WBC) Count 12.6 thou/uL (4.8-10.8)
[2018-07-28 07:17] LABS: Anion Gap 12 mmol/L (10-20); BUN (Urea Nitrogen) 7 mg/dL (9.8-20.1); Calc. Creatinine Clearance 72 mL/min (70-130); Calcium 8.1 mg/dL (7.8-10.44); Carbon Dioxide 20 mmol/L (23-31); Chloride 108 mmol/L (98-107); Estimated GFR-MDRD Greater than 90; Glucose 116 mg/dL (83-110); Sodium 136 mmol/L (136-145)
--- NOTE | 2018-07-28 07:56 | RAD ---
Portable chest: HISTORY: Pneumonia follow-up COMPARISON: 07/27/2018 FINDINGS:Diffuse confluent infiltrate involving left upper and midlung has progressed when compared t o prior exam. Hazy right upper lobe infiltrate also again noted. ET tube and NG tube have been removed. IMPRESSION:Increasing lung infiltrates
[2018-07-28] MEDS: Lisinopril 20 MG TAB PO SCH (08:54)
[2018-07-28] MEDS: Famotidine/PF 20 mg/2ml Vial SLOW IVP SCH (08:54)
[2018-07-28] MEDS ORDERED: levETIRAcetam 500 MG TAB PO SCH (09:00)
--- NOTE | 2018-07-28 09:11 | PRG ---
DATE OF SERVICE: 07/28/2018 SUBJECTIVE: Ms. Lozada is up in a chair, does not appear to be in any distress. OBJECTIVE: VITAL SIGNS: Temperature 99.0, pulse 101, blood pressure 154/80, 24-hour intake 3530, output 2145. HEENT: Unremarkable. NECK: No JVD. LUNGS: Crackles, left upper lobe. Right side clear. CARDIAC: S1 and S2. Regular. ABDOMEN: Soft. EXTREMITIES: She has a point tenderness posteriorly over the left elbow. LABORATORY DATA: Sodium 136, potassium 4, BUN 7, creatinine 0.7, and glucose 116. White blood cell count 12.6, hematocrit 31.2, and platelet count 303. ASSESSMENT: 1. Status post seizure. 2. Status post respiratory failure, requiring endotracheal intubation and mechanical ventilation. 3. Aspiration pneumonia. PLAN: 1. The patient will be transferred out to the stroke unit for neurologic observation. 2. Continue the antibiotics. 3. Start enoxaparin for DVT prophylaxis. 4. Check 4-view left elbow to rule out fracture. Job ID: [id number]
--- NOTE | 2018-07-28 09:26 | RAD ---
LEFT ELBOW FOUR VIEWS: History: Pain, possible fracture. Status post fall. FINDINGS: Significant arthrosis and degenerative changes noted involving the elbow joint with some hypertrophic osteophytosis. I cannot demonstrate a definite acute fracture although an occult radial head fractur e would certainly be difficult to exclude given all of the degenerative changes. Slightly prominent a nterior elbow fat pad, possibly some minimal effusion. IMPRESSION: Severe left elbow joint arthrosis. Borderline left elbow joint effusion. No evidence for an overt acu te fracture, however, given the severe degenerative changes, short term follow up study in 5-7 days s hould probably be considered for further assessment versus additional imaging if there remains strong clinical concern for acute elbow fracture or non-osseous injury. POS: Roseanne
[2018-07-28] MEDS: Famotidine 20 MG TAB PO SCH ×2 (09:40→22:16)
[2018-07-28] MEDS: Enoxaparin Sodium 40 MG/0.4 ML SYRINGE SC SCH (09:46)
[2018-07-28] MEDS: levETIRAcetam 500 MG TAB PO SCH ×2 (09:46→22:17)
[2018-07-28] MEDS: Pantoprazole 40 MG VIAL IVP SCH (10:27)
[2018-07-28] MEDS ORDERED: Metoprolol Tartrate 5 MG/5 ML VIAL ONE (12:57)
[2018-07-28] MEDS ORDERED: Metoprolol Tartrate 5 MG/5 ML VIAL IVP SCH (13:15)
--- NOTE | 2018-07-28 13:18 | PRG ---
DATE OF SERVICE: 07/28/2018 SUBJECTIVE: Ms. Lozada is sitting up in the chair. OBJECTIVE: VITAL SIGNS: Blood pressure is 150/104, pulse 130, sinus tachycardia. LUNGS: Clear. CARDIAC: She is very tachycardic. No murmur, rub, or gallop. ABDOMEN: Soft and nontender. EXTREMITIES: There is no edema. DIAGNOSTIC DATA: Echocardiogram revealed ejection fraction moderately diminished at 40% to 45%. ASSESSMENT: 1. Sinus tachycardia. 2. Status post respiratory arrest. 3. Moderately depressed left ventricular function. 4. Seizure disorder. PLAN: 1. Intravenous beta blockers followed by oral blockers. 2. We will continue to follow with you. We will need further evaluation at least a stress test, possibly catheterization based on clinical course. Job ID: [id number]
--- NOTE | 2018-07-28 15:28 | CON ---
DATE OF CONSULTATION: 07/28/2018 CONSULTING PHYSICIAN: Hospitalist Service. IMPRESSION: 1. Recurrent seizures. 2. Dementia. PLAN: 1. Increase Keppra to 750 mg twice a day. 2. The patient can be discharged at your discretion. HISTORY OF PRESENT ILLNESS: Ms. Lozada is a 77-year-old black female with a past history of vascular dementia and seizures. She came in with recurrent seizure. She is now back to her baseline. No other history is available at this point. PAST MEDICAL HISTORY: Hypertension, dementia. ALLERGIES: NONE REPORTED. SOCIAL HISTORY: No tobacco or alcohol. FAMILY HISTORY: Noncontributory. REVIEW OF SYSTEMS: Ten system review of systems is limited due to the patient's capability to answer questions. PHYSICAL EXAMINATION: NEUROLOGIC: She is awake and cooperative. Her speech is fluent and clear. She has no focal deficits. No abnormal movements were seen. LABORATORY DATA: EKG shows normal sinus rhythm. SUMMARY: This is an elderly lady with vascular dementia and secondary seizures. I would increase her Keppra to 750 mg twice a day. Job ID: [id number]
--- NOTE | 2018-07-28 16:54 | PQF ---
GAIL EMMANUEL, MAIKOL Blunt MD [id number] CLINICAL DOCUMENTATION IMPROVEMENT CLARIFICATION FORM: ICD-10 Updated PLEASE DO AN ADDENDUM TO THE PROGRESS NOTE WITH ANY DOCUMENTATION UPDATES OR ADDITIONS AND CARRY THROUGH TO DC SUMMARY. THANK YOU. DATE: 07/28/2018 ATTN: DR. Carlos STEEN Please exercise your independent, professional judgment in responding to the clarification form. Clinical indicators are provided on the bottom of this form for your review. Please check appropriate box(s): [ ] NSTEMI (FL type I) [ ] NSTEMI due to Demand Ischemia [y ] Demand Ischemia without FL [ ] Other diagnosis [ ] Unable to determine In addition, please specify: Present on Admission (POA): [ y ] Yes [ ] No [ ] Unable to determine CLINICAL INDICATORS - SIGNS / SYMPTOMS / LABS 07/26 TROPONIN I 0.0842 1.497 2.508 07/26 H & P (CELSA) ASSESSMENT 3). ELEVATED TROPONIN I, RULE OUT MYOCARDIAL INFARCTION 07/27 CONSULT (SOPHIA) ASSESSMENT 4). INCREASED TROPONIN, PROBABLY DEMAND ISCHEMIA NO FURTHER MENTION TO DATE RISK: ADVANCED AGE (77) HX OF HTN TREATMENTS CARDIOLOGY CONSULT CONTINUOUS CARDIAC MONITORING THANK YOU ! GRIISH (This form is maintained as a part of the permanent medical record) 2014 [employer], [employer]. All Rights Reserved [email or web address] [phone] MTDD
[2018-07-28] MEDS: cefTRIAXone\\ROCEPHIN 2 GM in Sodium Chloride 0.9% 100 ML IVPB SCH (18:39)
[2018-07-28] MEDS: Azithromycin 250 MG in Sodium Chloride 0.9% 250 ML 250 ML IVPB SCH (22:16)
[2018-07-29 05:44] LABS: #Eosinphils 0.1 thou/uL (0.0-0.7); #Lymphocytes 1.2 thou/uL (1.20-3.40); #Monocytes 1.1 thou/uL (0.11-0.59); #Neutrophils 6.3 thou/uL (1.40-6.50); %Basophils 0.2 % (0.0-1.0); %Eosinophils 1.4 % (0.0-10.0); %Lymphocytes 13.9 % (21.0-51.0); %Monocytes 12.1 % (0.0-10.0); %Neutrophils 72.4 % (42.0-75.0); Hemoglobin 8.6 g/dL (12.0-16.0); Mean Corpuscular HGB CONC 30.3 g/dL (32.0-36.0); Mean Corpuscular Hemoglobin 22.7 pg (27.0-31.0); Mean Corpuscular Volume 75.1 fL (78.0-98.0); Mean Platelet Volume 7.5 fL (7.4-10.4); Platelet Count 270 thou/uL (130-400); RBC Distribution Width 16.6 % (11.5-14.5); White Blood Cell (WBC) Count 8.7 thou/uL (4.8-10.8)
[2018-07-29 06:02] LABS: Anion Gap 10 mmol/L (10-20); BUN (Urea Nitrogen) 8 mg/dL (9.8-20.1); Calc. Creatinine Clearance 80 mL/min (70-130); Calcium 8.3 mg/dL (7.8-10.44); Carbon Dioxide 19 mmol/L (23-31); Chloride 104 mmol/L (98-107); Estimated GFR-MDRD Greater than 90; Glucose 102 mg/dL (83-110); Potassium 3.4 mmol/L (3.5-5.1); Sodium 130 mmol/L (136-145)
[2018-07-29] MEDS: Enoxaparin Sodium 40 MG/0.4 ML SYRINGE SC SCH (08:32)
[2018-07-29] MEDS: levETIRAcetam 500 MG TAB PO SCH ×2 (08:32→21:24)
[2018-07-29] MEDS: Famotidine 20 MG TAB PO SCH ×2 (08:33→21:23)
[2018-07-29] MEDS: Lisinopril 20 MG TAB PO SCH (08:33)
--- NOTE | 2018-07-29 10:45 | PRG ---
DATE OF SERVICE: 07/29/2018 SUBJECTIVE: Ms. Lozada appears to be doing better. She had no complaints. OBJECTIVE: VITAL SIGNS: Temperature 98.3, pulse 102, respirations 18, O2 saturation 95%, and blood pressure 138/63. HEENT: Unremarkable. NECK: No JVD. CHEST: Clear anteriorly. CARDIAC: S1, S2. Regular. ABDOMEN: Soft. EXTREMITIES: No edema. LABORATORY DATA: White blood cell count 8.7, hematocrit 28.5, and platelet count 270. Sodium 130, potassium 3.4, chloride 104, CO2 of 19, BUN 8, creatinine 0.6, glucose 102. ASSESSMENT: 1. Status post seizure episode. 2. Aspiration pneumonitis. 3. Decreased LV ejection fraction. 4. Developing hyponatremia. PLAN: Convert over to oral antibiotics and continue that for another 5 days. Increase activity as tolerated. The patient is probably at the point where she can go home. Her sodium level should be trended on labs tomorrow. Job ID: [id number]
--- NOTE | 2018-07-29 12:00 | PQF ---
GAIL EMMANUEL, MAIKOL Blunt MD [id number] [facility] [id number] CLINICAL DOCUMENTATION IMPROVEMENT CLARIFICATION FORM: ICD-10 Updated PLEASE DO AN ADDENDUM TO THE PROGRESS NOTE WITH ANY DOCUMENTATION UPDATES OR ADDITIONS AND CARRY THROUGH TO DC SUMMARY. THANK YOU. DATE: 07/29/2009 ATTN: DR. Carlos STEEN Please exercise your independent, professional judgment in responding to the clarification form. Clinical indicators are provided on the bottom of this form for your review. Please check appropriate box(es): [ ] Sepsis due to: (Pna, UTI, gangrenous gall bladder, etc.) [ ] Severe sepsis with acute organ dysfunction of: (Examples: respiratory failure, encephalopathy, acute kidney failure, other) [ ] Septic Shock [y ] Localized infection without sepsis [ ] Other diagnosis [ ] Unable to determine In addition, please specify: Present on Admission (POA): [ y] Yes [ ] No [ ] Unable to determine For continuity of documentation, please document condition throughout progress notes and discharge summary. Thank You. CLINICAL INDICATORS - SIGNS / SYMPTOMS / LABS 07/26 WBC 13.8 12.6 LACTIC ACID 4.9 2.6 07/26 TEMP 103.2 PULSE 107-136 07/26 ED PHYSICIAN DX: ALTERED MENTAL STATUS, FEVER, RESP FAILURE, SEIZURE 07/26 H & P (CELSA) ASSESSMENT: 2). FEVER, POSSIBLE SEPSIS, DUE TO PNEUMONIA , BILATERAL 07/26 CONSULT (CARLO) ASSESSMENT 3). SEPSIS SYNDROME NO FURTHER MENTION TO DATE RISK: DX ASPIRATION PNEUMONIA ACUTE HYPOXIC RESP FAILURE METABOLIC ENCEPHALOPATHY TREATMENTS IV FLUIDS NS (07/26 - PRESENT) ROCEPHIN IV (07/27-PRESENT) ZITHROMAX IV (07/27-PRESENT) THANK YOU! GIRISH (This form is maintained as a part of the permanent medical record) 2014 [employer]. All Rights Reserved KIM [email or web address] [phone] KAMALJIT
[2018-07-29] MEDS ORDERED: Potassium Chloride 20 MEQ TAB PO SCH ×2 (13:15→17:45)
[2018-07-29] MEDS: Cefdinir 300 MG CAP PO SCH (13:23)
--- NOTE | 2018-07-29 15:09 | PRG ---
DATE OF SERVICE: 07/29/2018 SUBJECTIVE: Ms. Lozada is doing better today. She is out on the floor. OBJECTIVE: VITAL SIGNS: Blood pressure still high 155/68, pulse is 110 and sinus. LUNGS: Clear. CARDIAC: She is tachycardic for rest. ABDOMEN: Soft and nontender. EXTREMITIES: There is no edema. PERTINENT LABORATORY DATA: Hemoglobin is down to 8.6. DIAGNOSTIC DATA: Echocardiogram shows that she has markedly depressed left ventricular function with an ejection fraction of 40% to 45%. ASSESSMENT: 1. Status post seizure with aspiration pneumonitis. 2. Sinus tachycardia. 3. Moderately depressed left ventricular function. 4. Hypertension. PLAN: 1. Increase metoprolol to 100 mg a day starting tomorrow. 2. Continue lisinopril. 3. Dr. Galaviz available this weekend if needed to see. I suspect the patient's left ventricular function will improve if we can control her heart rate. Job ID: [id number]
[2018-07-30 06:03] LABS: Anion Gap 13 mmol/L (10-20); BUN (Urea Nitrogen) 10 mg/dL (9.8-20.1); Calc. Creatinine Clearance 74 mL/min (70-130); Calcium 8.6 mg/dL (7.8-10.44); Carbon Dioxide 19 mmol/L (23-31); Chloride 104 mmol/L (98-107); Estimated GFR-MDRD Greater than 90; Glucose 97 mg/dL (83-110); Potassium 4.4 mmol/L (3.5-5.1); Sodium 132 mmol/L (136-145)
[2018-07-30 06:27] LABS: #Eosinphils 0.3 thou/uL (0.0-0.7); #Lymphocytes 0.9 thou/uL (1.20-3.40); #Neutrophils 5.5 thou/uL (1.40-6.50); %Eosinophils 3.5 % (0.0-10.0); %Lymphocytes 11.8 % (21.0-51.0); %Monocytes 12.4 % (0.0-10.0); %Neutrophils 72.3 % (42.0-75.0); Hemoglobin 8.6 g/dL (12.0-16.0); MDiff Complete? YES; Mean Corpuscular HGB CONC 31.8 g/dL (32.0-36.0); Mean Corpuscular Hemoglobin 23.1 pg (27.0-31.0); Mean Corpuscular Volume 72.5 fL (78.0-98.0); Mean Platelet Volume 7.7 fL (7.4-10.4); Microcytosis SLIGHT = 6-15 cells (100X) (0-5/hpf); Platelet Count 299 thou/uL (130-400); Platelet Morphology Comment Appears Adequate; RBC Distribution Width 16.3 % (11.5-14.5); Red Blood Cell (RBC) Count 3.71 mill/uL (4.20-5.40); White Blood Cell (WBC) Count 7.7 thou/uL (4.8-10.8)
[2018-07-30] MEDS: Lisinopril 20 MG TAB PO SCH (09:17)
[2018-07-30] MEDS: Famotidine 20 MG TAB PO SCH ×2 (09:18→21:11)
[2018-07-30] MEDS: levETIRAcetam 500 MG TAB PO SCH ×2 (09:18→21:11)
[2018-07-30] MEDS: Enoxaparin Sodium 40 MG/0.4 ML SYRINGE SC SCH (09:20)
[2018-07-30] MEDS: Cefdinir 300 MG CAP PO SCH (12:42)
--- NOTE | 2018-07-30 16:48 | EKG ---
Test Reason : Blood Pressure : / mmHG Vent. Rate : 128 BPM Atrial Rate : 128 BPM P-R Int : 148 ms QRS Dur : 068 ms QT Int : 310 ms P-R-T Axes : 055 056 045 degrees QTc Int : 452 ms Sinus tachycardia Possible Left atrial enlargement Septal infarct , age undetermined Abnormal ECG Confirmed by GIOVANY MARTINEZ ([id number]), image editor RIGOBERTO WILLIS ([id number]) on 07/30/2018 4:47:04 PM Referred By: JUAN Confirmed By:GIOVANY MARTINEZ
--- NOTE | 2018-07-30 18:46 | PRG ---
DATE OF SERVICE: 07/30/2018 SUBJECTIVE: Jackie Lozada has no complaints. She says she is feeling better. OBJECTIVE: VITAL SIGNS: She is afebrile, heart rate 89, respiratory rate 16, oximetry is 92% on 3 L, blood pressure 137/80. LUNGS: Clear anteriorly and laterally. HEART: Regular rhythm. She was tachycardic earlier. Heart rate came down. Her metoprolol was increased yesterday. ABDOMEN: Soft and nontender. EXTREMITIES: Without edema. LABORATORY DATA: White count 7.7, hemoglobin 8.6, platelets 299. Hemoglobin was 8.6 yesterday. Sodium 132, potassium 4.4, chloride 104, bicarb 19, BUN 10, creatinine 0.7. Sodium was 130 yesterday. IMPRESSION: 1. Pneumonia with aspiration pneumonitis. 2. Status post seizure. 3. Depressed left ventricular ejection fraction. 4. Hyponatremia, this improved. 5. Weakness and deconditioning. Reviewed her echocardiogram, showed her ejection fraction of 40% to 45%. She had dcuf-[id number] mitral regurgitation. No aortic stenosis. PLAN: We will continue with current supportive care measures. Job ID: [id number]
[2018-07-30] MEDS: risperiDONE 0.25 MG TAB PO SCH (21:11)
[2018-07-31 06:26] LABS: #Basophils 0.1 thou/uL (0.0-0.2); #Eosinphils 0.4 thou/uL (0.0-0.7); #Lymphocytes 1.2 thou/uL (1.20-3.40); #Neutrophils 5.4 thou/uL (1.40-6.50); %Basophils 1.4 % (0.0-1.0); %Eosinophils 5.4 % (0.0-10.0); %Monocytes 12.3 % (0.0-10.0); %Neutrophils 65.8 % (42.0-75.0); Anion Gap 12 mmol/L (10-20); BUN (Urea Nitrogen) 9 mg/dL (9.8-20.1); Calc. Creatinine Clearance 71 mL/min (70-130); Calcium 8.8 mg/dL (7.8-10.44); Carbon Dioxide 21 mmol/L (23-31); Chloride 104 mmol/L (98-107); Estimated GFR-MDRD Greater than 90; Glucose 104 mg/dL (83-110); Hemoglobin 9.3 g/dL (12.0-16.0); Mean Corpuscular HGB CONC 31.9 g/dL (32.0-36.0); Mean Corpuscular Hemoglobin 22.9 pg (27.0-31.0); Mean Corpuscular Volume 71.9 fL (78.0-98.0); Mean Platelet Volume 7.3 fL (7.4-10.4); Platelet Count 372 thou/uL (130-400); Potassium 3.8 mmol/L (3.5-5.1); RBC Distribution Width 16.5 % (11.5-14.5); Red Blood Cell (RBC) Count 4.05 mill/uL (4.20-5.40); Sodium 133 mmol/L (136-145); White Blood Cell (WBC) Count 8.2 thou/uL (4.8-10.8)
[2018-07-31] MEDS: Lisinopril 20 MG TAB PO SCH ×2 (09:28→21:36)
[2018-07-31] MEDS: levETIRAcetam 500 MG TAB PO SCH ×2 (09:29→21:35)
[2018-07-31] MEDS: Famotidine 20 MG TAB PO SCH ×2 (09:31→21:35)
[2018-07-31] MEDS: Enoxaparin Sodium 40 MG/0.4 ML SYRINGE SC SCH (09:32)
[2018-07-31] MEDS: Cefdinir 300 MG CAP PO SCH (11:57)
[2018-07-31] MEDS: risperiDONE 0.25 MG TAB PO SCH (21:36)
[2018-08-01 06:07] LABS: Anion Gap 11 mmol/L (10-20); BUN (Urea Nitrogen) 8 mg/dL (9.8-20.1); Calc. Creatinine Clearance 69 mL/min (70-130); Calcium 8.6 mg/dL (7.8-10.44); Carbon Dioxide 23 mmol/L (23-31); Chloride 104 mmol/L (98-107); Estimated GFR-MDRD 90; Glucose 97 mg/dL (83-110); Potassium 4.1 mmol/L (3.5-5.1); Sodium 134 mmol/L (136-145)
[2018-08-01] MEDS ORDERED: Prevnar 13-Val Conj/PF 0.5 ML SYRINGE IM ONE (06:15)
--- NOTE | 2018-08-01 09:52 | PRG ---
DATE OF SERVICE: 08/01/2018 SUBJECTIVE: The patient is doing reasonably well. She had no acute complaints. OBJECTIVE: VITAL SIGNS: Temperature 98.1, pulse 92, respirations 20, O2 saturation 100% on room air, and blood pressure 145/67. HEENT: Unremarkable. NECK: No JVD. No lymphadenopathy. LUNGS: Clear. CARDIAC: S1 and S2. Regular. ABDOMEN: Soft. EXTREMITIES: No edema. LABORATORY DATA: Sodium 134, potassium 4.1, chloride 104, CO2 of 23, BUN 8, creatinine 0.7, and glucose 97. ASSESSMENT: 1. Status post endotracheal intubation after seizure. 2. Aspiration pneumonitis. 3. Decreased left ventricular ejection fraction. PLAN: She was switched to oral antibiotics on the . She should complete therapy by the . There are no other pulmonary issues, we will sign off. Job ID: [id number]
--- NOTE | 2018-08-01 10:24 | PRG ---
DATE OF SERVICE: 08/01/2018 SUBJECTIVE: Ms. Lozada is doing better. She is now awake and alert. She is oriented. She knows the date now. OBJECTIVE: VITAL SIGNS: Her blood pressure 145/67 and pulse is still about 100 at rest. LUNGS: Clear. CARDIAC: Normal S1 and normal S2. ABDOMEN: Soft and nontender. EXTREMITIES: No edema. ASSESSMENT: 1. Increased troponin level, probably demand ischemia. 2. Left ventricular hypertrophy on echocardiogram. 3. Hypertension. 4. History of seizure disorder. PLAN: We will go ahead and do stress testing prior to being discharged, that looks okay. She will go home on the current medical regimen of JODY inhibitor, beta-justin, and low-dose aspirin, also statin therapy. Job ID: [id number]
[2018-08-01] MEDS: Lisinopril 20 MG TAB PO SCH ×2 (10:28→21:13)
[2018-08-01] MEDS: levETIRAcetam 500 MG TAB PO SCH ×2 (10:29→21:13)
[2018-08-01] MEDS: Famotidine 20 MG TAB PO SCH ×2 (10:33→21:12)
[2018-08-01] MEDS: Enoxaparin Sodium 40 MG/0.4 ML SYRINGE SC SCH (10:37)
[2018-08-01] MEDS: Cefdinir 300 MG CAP PO SCH (13:21)
[2018-08-01] MEDS: Rosuvastatin 20 MG TAB PO SCH (21:12)
[2018-08-01] MEDS: risperiDONE 0.25 MG TAB PO SCH (21:13)
[2018-08-02 06:03] LABS: Anion Gap 11 mmol/L (10-20); BUN (Urea Nitrogen) 6 mg/dL (9.8-20.1); Calc. Creatinine Clearance 64 mL/min (70-130); Calcium 8.6 mg/dL (7.8-10.44); Carbon Dioxide 24 mmol/L (23-31); Chloride 104 mmol/L (98-107); Estimated GFR-MDRD 84; Glucose 92 mg/dL (83-110); Potassium 4.2 mmol/L (3.5-5.1); Sodium 135 mmol/L (136-145)
[2018-08-02] MEDS: Enoxaparin Sodium 40 MG/0.4 ML SYRINGE SC SCH (08:57)
[2018-08-02] MEDS: Aspirin 81 mg Enteric Coated Tablet PO SCH (08:57)
[2018-08-02] MEDS: levETIRAcetam 500 MG TAB PO SCH ×2 (08:57→20:51)
[2018-08-02] MEDS: Famotidine 20 MG TAB PO SCH ×2 (08:57→20:51)
[2018-08-02] MEDS ORDERED: Escitalopram Oxalate 10 mg Tablet PO SCH (10:15)
[2018-08-02] MEDS: Cefdinir 300 MG CAP PO SCH (12:50)
[2018-08-02] MEDS: Lisinopril 20 MG TAB PO SCH ×2 (12:51→20:51)
--- NOTE | 2018-08-02 13:13 | NM ---
EXAM: CARDIAC SPECT HISTORY: Chest pain TECHNIQUE: A myocardial perfusion scan was performed using the single isotope 2 day protocol with reuben hnetium 99m sestamibi. [33] was injected intravenously for the rest exam followed by 30 mCi for the stress study. Pharmacologic stress with Lexiscan was monitored and interpreted by Mervin Lucas, nurse practitioner. FINDINGS: There is a small defect in the distal anteroseptal wall on the stress images with incomplet e filling at rest. Gated SPECT LVEF: 62% Wall motion exam: Normal IMPRESSION: Probable mild ischemia in the distal anteroseptal wall.
[2018-08-02] MEDS ORDERED: Regadenoson 0.4 MG/5 ML SYRINGE ONE (15:09)
[2018-08-02] MEDS: risperiDONE 0.25 MG TAB PO SCH (20:51)
[2018-08-02] MEDS: Rosuvastatin 20 MG TAB PO SCH (20:51)
--- NOTE | 2018-08-02 21:20 | PRG ---
DATE OF SERVICE: 08/02/2018 SUBJECTIVE: Ms. Lozada is feeling well. She wishes to go home if she can. OBJECTIVE: VITAL SIGNS: Her blood pressure is still variable most recently 167/73; pulse is better, which is in the 80 to 90 range. LUNGS: Clear. CARDIAC: Normal S1, normal S2. DIAGNOSTIC DATA: Stress test did reveal probable mild ischemia in distal anteroseptal wall. ASSESSMENT: 1. Status post seizure, extensive, associated with respiratory failure and intubation. 2. Indication of this is likely some noncompliance with medication. 3. Type-2 nwp-AC-beaamsojf myocardial infarction (demand ischemia) associated with hypoxemia and tachycardia. 4. No history of chest pain or pressure. 5. Probable underlying coronary artery disease. PLAN: Discussed the options with the patient, she prefers medical therapy, that is reasonable. She is having no angina. She is treated with aspirin, beta blockers, and statins. As she has chest pain, proceed to cardiac catheterization and this is the patient's preference as well. Job ID: [id number]
[2018-08-03] MEDS ORDERED: Escitalopram Oxalate 10 mg Tablet PO SCH (09:00)
[2018-08-03] MEDS: Lisinopril 20 MG TAB PO SCH (09:26)
[2018-08-03] MEDS: Aspirin 81 mg Enteric Coated Tablet PO SCH (09:28)
[2018-08-03] MEDS: levETIRAcetam 500 MG TAB PO SCH (09:29)
[2018-08-03] MEDS: Enoxaparin Sodium 40 MG/0.4 ML SYRINGE SC SCH (09:30)
[2018-08-03] MEDS: Famotidine 20 MG TAB PO SCH (09:32)
[2018-08-03] MEDS: Cefdinir 300 MG CAP PO SCH (12:12)
[2018-08-03 15:49] VITALS: BP 137/59; TEMP 98.5
--- NOTE | 2018-08-04 13:13 | STRESS ---
Acquisition Time: 2018-08-02 10:49:14 Total Exercise Time: 00:01:00 Test Indications: CHEST PAIN Medications: Protocol: LEXISCAN Max HR: 111 BPM 78% of Pred: 141 BPM Max BP: 142/068 mmHG Max Work Load: 1.0 METS RESTING ECG: NORMAL SINUS RHYTHM AT 94 BPM WITH OLD SEPTAL IL SYMPTOMS: NONE NORMAL BP RESPONSE ECTOPY: NONE ECG STRESS: NO SIGNIFICANT CHANGES INTERPRETATION: NEGATIVE ECG/AWAIT NUCLEAR IMAGES FOR DEFINITIVE DIAGNOSIS Confirmed by YO WILEY ([id number]) on 08/04/2018 1:12:55 PM Referred By: MD Mervin CORTES Confirmed By:YO WILEY
--- NOTE | 2018-08-05 02:05 | DIS ---
DATE OF ADMISSION: 07/26/2018 DATE OF DISCHARGE: 08/03/2018 ADMITTING DIAGNOSES: 1. Acute respiratory failure. 2. Fever, possible sepsis due to pneumonia, bilateral. 3. Elevated troponin, rule out myocardial infarction. 4. Recurrent seizures. 5. Metabolic encephalopathy. 6. Hypertension, rule out pulmonary edema. FINAL DIAGNOSES: 1. Aspiration pneumonia. 2. Status post respiratory failure. 3. Recurrent seizures. 4. Demand ischemia. 5. Mild coronary artery disease. 6. Metabolic encephalopathy, improved. 7. History of schizoaffective disorder. 8. Hypertension, uncontrolled, improved. BRIEF SUMMARY OF HOSPITAL COURSE: Ms. Lozada is a 77-year-old female, brought in because of recurrent seizures witnessed. The patient was unresponsive and was intubated because of respiratory failure. The patient was found to have bilateral pneumonia, admitted to ICU and intubated. Pulmonary consultation was done. The patient is seen by Dr. Moore. His impression was the patient had respiratory failure with bilateral pneumonia, but after 2 days, the patient was weaned off and extubated. The patient did not have any more seizures while in the hospital. The patient was not taking Keppra at home. Keppra level was low. She was restarted on Keppra. The patient continued on IV antibiotics and closely monitored in the ER. The patient also showed elevated troponin I suggestive of demand ischemia. Cardiology consultation was done and the patient was seen by Dr. Haro, felt the patient has a demand ischemia and may need further workup for her coronary artery disease once she is stable. So, the patient was transferred to medical floor and started on physical therapy. She does have a history of schizoaffective disorder, so she was restarted on Risperdal and Lexapro. The patient is participating in physical therapy. She did not have any seizures. She did not have any chest pain or shortness of breath. Her blood pressure was elevated. Medications were adjusted to control the blood pressure. The patient underwent stress test which showed mild ischemia involving distal anteroseptal wall. Dr. Haro had decided to treat her conservatively with the medications. She did not have any chest pain or shortness of breath. The patient is evaluated for rehab inpatient and is accepted. She is being transferred there. At the time of discharge, she was stable. Her vital signs stable. Lungs are clear to auscultation. Abdomen is soft and nontender. Bowel sounds are present. DISCHARGE MEDICATIONS: 1. Risperdal 0.25 mg at bedtime. 2. Crestor 20 mg at bedtime. 3. Metoprolol 100 mg daily. 4. Lisinopril 20 mg b.i.d. 5. Keppra 750 b.i.d. 6. Pepcid 20 b.i.d. 7. Lexapro 10 mg daily. 8. Omnicef 300 b.i.d. for 1 week. 9. Aspirin 81 mg daily. The patient will continue physical therapy at the rehab. Job ID: [id number]
== END 2018-08-03 19:55 | DRG 208 ==
LOC: ERS 17:08 → CCU 20:37 → 2SE 07-28 21:05
PROVIDERS: ADMIT Internal Medicine; ATTEND Internal Medicine
PROC: 0BH17EZ Insertion of Endotracheal Airway into Trachea, Via Natural or Artificial Opening (ICD-10-PCS; principal; 2018-07-26)
PROC: 5A1935Z Respiratory Ventilation, Less than 24 Consecutive Hours (ICD-10-PCS; 2018-07-26)
DX: J69.0 Pneumonitis due to inhalation of food and vomit (principal); J96.01 Acute respiratory failure with hypoxia; G93.41 Metabolic encephalopathy; E87.1 Hypo-osmolality and hyponatremia; I24.8 Other forms of acute ischemic heart disease; I10 Essential (primary) hypertension; G40.909 Epilepsy, unspecified, not intractable, without status epilepticus; F41.9 Anxiety disorder, unspecified; F32.9 Major depressive disorder, single episode, unspecified; E78.5 Hyperlipidemia, unspecified; I34.0 Nonrheumatic mitral (valve) insufficiency; R00.0 Tachycardia, unspecified; F01.50 Vascular dementia, unspecified severity, without behavioral disturbance, psychotic disturbance, mood disturbance, and anxiety; E87.6 Hypokalemia; Z91.14 Patient's other noncompliance with medication regimen; Z79.899 Other long term (current) drug therapy
CPT/HCPCS: 31500; 36415; 51702; 70450; 70496; 70498; 71045; 78452; 80048; 80053; 80177; 80306; 80307; 81003; 81015; 82550; 82553; 82805; 83605; 83880; 84484; 85025; 85610; 87040; 87804; 90471; 90670; 93005; 93017; 93306; 94002; 94003; 94640; 96361; 96365; A9500; C9113; G0009; J0456; J0696; J1650; J1953; J2704; J2785; J3480; J3490; J7050; J7620; Q9966; S0028

== ENCOUNTER 2019-03-21 19:18 | Inpatient (IN) | payer MEDICARE, BC ==
--- NOTE | 2019-03-21 20:09 | CT ---
Exam: CT brain PROVIDED CLINICAL HISTORY: Altered mental status COMPARISON: 07/26/2018 FINDINGS: The ventricular system is normal in size and morphology. No evidence for intracranial hemorrhage or mass effect. Chronic microvascular ischemic changes are again seen involving the cerebral white matter. Partial opacification of right mastoid air cells. Vascular calcification. IMPRESSION: No evidence for intracranial hemorrhage or mass effect.
[2019-03-21 20:15] LABS: #Basophils 0.1 thou/uL (0.0-0.2); #Lymphocytes 0.5 thou/uL (1.20-3.40); #Neutrophils 8.9 thou/uL (1.40-6.50); %Basophils 0.6 % (0.0-1.0); %Eosinophils 0.3 % (0.0-10.0); %Monocytes 9.6 % (0.0-10.0); %Neutrophils 84.5 % (42.0-75.0); Hemoglobin 6.8 g/dL (12.0-16.0); Mean Corpuscular HGB CONC 32.4 g/dL (32.0-36.0); Mean Corpuscular Hemoglobin 20.6 pg (27.0-31.0); Mean Corpuscular Volume 63.5 fL (78.0-98.0); Platelet Count 435 thou/uL (130-400); RBC Distribution Width 17.1 % (11.5-14.5); Red Blood Cell (RBC) Count 3.32 mill/uL (4.20-5.40); White Blood Cell (WBC) Count 10.5 thou/uL (4.8-10.8)
--- NOTE | 2019-03-21 20:18 | RAD ---
EXAM: Portable chest PROVIDED CLINICAL HISTORY: Altered mental status COMPARISON: 07/28/2018 FINDINGS: Cardiac and mediastinal silhouette is within normal limits. No focal consolidation, pleural fluid or pneumothorax evident. Vascular calcification involves the aortic arch. IMPRESSION: No evidence for an acute cardiopulmonary process.
[2019-03-21 20:19] LABS: Actual Bicarbonate (HCO3a) 23.9 mEq/L (22-28); Analyzer IN Cardio ER; Base Excess (BEa) -1.3 mEq/L (-2.0 to +3.0); CO2 Tension 42.2 mmHg (35.0-45.0); Calcium, Ionized 1.11 mmol/L (1.12-1.30); Carboxyhemoglobin (COHb) 2.6 gm% (0.0-3.0); Hemoglobin (Hb) 7.1 g/dL (12.0-16.0); O2 Tension (PaO2) 64.4 mmHg (> 60.0); Potassium - ABG Lab 2.64 mmol/L (3.70-5.30); pH, Arterial 7.37 (7.35-7.45)
[2019-03-21 20:24] LABS: Puncture Site LRA
[2019-03-21 20:25] LABS: Anisocytosis SLIGHT = 6-15 cells (100X) (0-5/hpf); Hypochromia SLIGHT = 6-15 cells (100X) (0-5/hpf); MDiff Complete? YES; Microcytosis MODERATE=15-30 cells (100X) (0-5/hpf); Ovalocytes SLIGHT = 2-5 cells (100X) (0-1/hpf); Platelet Morphology Comment Appears Increased; Polychromasia MODERATE = 3-4 cells (100X) (0-2/hpf); Reflex for Review?? YES; Target Cells SLIGHT = 2-5 cells (100X) (0-1/hpf)
[2019-03-21 20:33] LABS: Acetaminophen Less than 6.0 mcg/mL (10.0-30.0); Alcohol Less than 10 mg/dL (Less than 10); CK (CPK) 84 U/L (29-168); Salicylate Less than 8.0 mg/dL (15.0-30.0)
[2019-03-21 20:34] LABS: ALT (SGPT) Less than 7 U/L (8-55); AST (SGOT) 9 U/L (5-34); Albumin 3.1 g/dL (3.4-4.8); Alkaline Phosphatase 104 U/L (40-110); Anion Gap 12 mmol/L (10-20); BUN (Urea Nitrogen) 10 mg/dL (9.8-20.1); Bilirubin, Total 0.3 mg/dL (0.2-1.2); Calc. Creatinine Clearance 0 mL/min (70-130); Calcium 8.2 mg/dL (7.8-10.44); Carbon Dioxide 23 mmol/L (23-31); Chloride 99 mmol/L (98-107); Estimated GFR-MDRD 68; Globulin 3.6 g/dL (2.4-3.5); Glucose 161 mg/dL (83-110); Lipase 16 U/L (8-78); Protein, Total 6.7 g/dL (6.0-8.3); Sodium 131 mmol/L (136-145)
[2019-03-21 20:45] LABS: Potassium 2.8 mmol/L (3.5-5.1)
[2019-03-21 20:52] LABS: Bacteria/HPF 3+ HPF (None Seen); Bilirubin Negative (Negative); Blood, Urine Trace (Negative); Clarity Turbid (Clear); Glucose, Urine (Dipstick) Normal (Negative); Leukocyte 75 Leu/uL (Negative); Nitrite Negative (Negative); Protein, Urine (Dipstick) Negative (Neg-Trace); Urobilinogen Normal mg/dL (Less than 2); WBC/HPF 0-3 HPF (0-3)
[2019-03-21] MEDS ORDERED: Aspirin Chewable 81 MG TAB ONE (20:53)
[2019-03-21] MEDS ORDERED: levETIRAcetam 500 MG/100 ML PREMIX BAG ONE (20:53)
[2019-03-21 20:54] LABS: CKMB 1.3 ng/mL (0-6.6)
[2019-03-21 20:57] LABS: Amphetamine Not Detected (NotDetected); Barbiturates Screen Not Detected (NotDetected); Benzodiazepine Screen Not Detected (NotDetected); Cocaine Metabolite Screen Not Detected (NotDetected); Medtox Control Line Valid? VALID (VALID); Medtox Reader # READER 4; Methadone Not Detected (NotDetected); Methamphetamine Not Detected (NotDetected); Opiate Screen Not Detected (NotDetected); Oxycodone Screen Not Detected (NotDetected); Phencyclidine (PCP) Not Detected (NotDetected); THC/Cannabinoid Screen Not Detected (NotDetected); Tricyclic Screen Not Detected (NotDetected)
[2019-03-21] MEDS ORDERED: Potassium Chloride 20 MEQ TAB ONE (21:31)
[2019-03-21 23:11] LABS: Troponin I 0.115 ng/mL (< 0.028)
[2019-03-22] MEDS ORDERED: Sodium Chloride 0.9% 1,000 ML IV SCH (00:19)
[2019-03-22] MEDS ORDERED: Ondansetron PF 4 MG/2 ML Vial IVP PRN (00:19)
[2019-03-22] MEDS ORDERED: Ondansetron ODT 4 MG TAB SL PRN (00:19)
[2019-03-22] MEDS ORDERED: Lorazepam 2 MG/ML VIAL SLOW IVP PRN (00:23)
[2019-03-22 00:29] VITALS: BMI 24.3
[2019-03-22 01:47] LABS: Troponin I 0.125 ng/mL (< 0.028)
[2019-03-22 02:41] LABS: Lactic Acid 1.3 mmol/L (0.5-2.2)
[2019-03-22] MEDS ORDERED: Potassium Chloride 20 MEQ TAB PO SCH (08:00)
[2019-03-22] MEDS ORDERED: Aspirin 325 MG TAB PO SCH (09:00)
[2019-03-22 09:08] LABS: #Lymphocytes 0.9 thou/uL (1.20-3.40); #Monocytes 0.8 thou/uL (0.11-0.59); %Basophils 0.3 % (0.0-1.0); %Eosinophils 0.3 % (0.0-10.0); %Lymphocytes 11.2 % (21.0-51.0); %Monocytes 10.1 % (0.0-10.0); Hemoglobin 9.9 g/dL (12.0-16.0); Mean Corpuscular HGB CONC 32.4 g/dL (32.0-36.0); Mean Corpuscular Hemoglobin 22.7 pg (27.0-31.0); Mean Corpuscular Volume 70.1 fL (78.0-98.0); Mean Platelet Volume 7.5 fL (7.4-10.4); Platelet Count 368 thou/uL (130-400); Red Blood Cell (RBC) Count 4.38 mill/uL (4.20-5.40); White Blood Cell (WBC) Count 7.7 thou/uL (4.8-10.8)
[2019-03-22 09:35] LABS: ALT (SGPT) Less than 7 U/L (8-55); AST (SGOT) 8 U/L (5-34); Albumin 3.3 g/dL (3.4-4.8); Alkaline Phosphatase 103 U/L (40-110); Anion Gap 12 mmol/L (10-20); BUN (Urea Nitrogen) 6 mg/dL (9.8-20.1); Bilirubin, Total 0.5 mg/dL (0.2-1.2); Calc. Creatinine Clearance 61 mL/min (70-130); Calcium 8.2 mg/dL (7.8-10.44); Carbon Dioxide 26 mmol/L (23-31); Chloride 99 mmol/L (98-107); Estimated GFR-MDRD 87; Globulin 3.7 g/dL (2.4-3.5); Glucose 149 mg/dL (83-110); Iron Binding Capacity, Total 275 mcg/dL (265-497); Potassium 3.1 mmol/L (3.5-5.1); Sodium 134 mmol/L (136-145)
[2019-03-22] MEDS: levETIRAcetam 500 MG TAB PO SCH ×2 (09:48→20:31)
[2019-03-22] MEDS: Escitalopram Oxalate 10 mg Tablet PO SCH (09:48)
[2019-03-22] MEDS: Lisinopril 20 MG TAB PO SCH ×2 (09:49→20:31)
[2019-03-22] MEDS: Amlodipine 5 MG TAB PO SCH ×2 (09:49→20:30)
[2019-03-22] MEDS: Famotidine 20 MG TAB PO SCH ×2 (09:49→20:29)
[2019-03-22] MEDS: Aspirin 81 mg Enteric Coated Tablet PO SCH (09:49)
[2019-03-22 10:08] LABS: Iron 44 ug/dL (50-170)
[2019-03-22] MEDS: Rosuvastatin 20 MG TAB PO SCH (20:29)
[2019-03-22] MEDS: risperiDONE 0.25 MG TAB PO SCH (20:30)
--- NOTE | 2019-03-22 23:17 | CON ---
DATE OF CONSULTATION: 03/22/2019 REQUESTING PHYSICIAN: Dr. Richardson. REASON FOR CONSULTATION: Anemia. HISTORY OF PRESENT ILLNESS: Tl Lozada is an 78-year-old woman with a history of schizophrenia and seizure disorder. She was hospitalized here last in July 2018 with aspiration pneumonia following a seizure. She was noted at that time to have chronic anemia with baseline hemoglobin essentially 8 to 9. She had a prior colonoscopy with my partner, Dr. Pollack back in 2005 and had multiple polyps removed, did not follow up for any surveillance colonoscopy since then. At any rate, she was admitted to the hospital here yesterday, essentially in a postictal state after recurrent seizure. There was some concern initially for possible aspiration pneumonia, so she was admitted to the hospital. I do note chest x-ray and CT head have showed no acute processes. The patient is currently awake and able to converse, though she is quite tangential in her conversation, but I am unsure what her baseline mental status is. At any rate, her admission hemoglobin was down to 6.8, which is a bit below her baseline. She received 2 units RBC transfusion and hemoglobin came up to 9.9. This is a microcytic anemia with MCV 63.5. FOBT was negative. Ferritin level is within normal range, but I think iron studies were drawn following blood transfusions, so this may not reflect her true iron stores. The patient herself reports no issues with abdominal pain, nausea , or vomiting. She denies any melena. She does say that from time to time, she will have some red blood in her bowel movements. She has not had any further seizures since admission yesterday. REVIEW OF SYSTEMS: Full review of systems including constitutional, head, eyes, ears, nose, throat, GI, , cardiovascular, respiratory, musculoskeletal, neurologic systems is negative except as noted in the HPI. PAST MEDICAL HISTORY: Schizophrenia, depression/anxiety, seizure disorder, hysterectomy, coronary artery disease, aspiration pneumonia in July 2018, history of colon polyps. Last colonoscopy in 2005. ALLERGIES: NO KNOWN DRUG ALLERGIES. OUTPATIENT MEDICATIONS: 1. Keppra. 2. Amlodipine. 3. Aspirin 81 mg twice daily. 4. Escitalopram. 5. Famotidine 20 mg daily. 6. Lisinopril. 7. Metoprolol. 8. Risperidone. 9. Rosuvastatin. SOCIAL HISTORY: No smoking, alcohol, or drug use. FAMILY HISTORY: Unable to obtain reliable family history from the patient. PHYSICAL EXAMINATION: VITAL SIGNS: Temperature 99.4, pulse 74, blood pressure 134/72, and 100% oxygen saturation on room air. GENERAL: An 78-year-old woman, lying in bed comfortably, in no distress. MENTAL: She is alert. She is oriented to person. She is otherwise quite confused. She can answer questions regarding current symptoms, but cannot really give me details about prior or even recent medical history. With a lot of redirection, she does seem to be able to understand our discussions about her anemia. SKIN: No jaundice. No rashes were palpable. HEENT: Eyes, no scleral icterus. Extraocular movements intact. ENT, mucous membranes moist. No oral lesions. LYMPH: No submandibular or supraclavicular lymphadenopathy. Thyroid, nontender to palpation. HEART: Regular rate and rhythm. LUNGS: Clear to auscultation bilaterally. ABDOMEN: Soft, nontender to palpation throughout. Bowel sounds are present. EXTREMITIES: No peripheral edema. VESSELS: Radial pulses 2+ bilaterally. NEUROLOGIC: Cranial nerves 2 through 12 intact bilaterally. No focal deficits. LABORATORY STUDIES: Hemoglobin initially 6.8 with MCV 63.5; with 2 units RBC transfusion, hemoglobin is up to 9.9; WBC 7.7; platelets 368. Sodium 134, potassium 3.1, BUN 6, creatinine 0.77, glucose 149, total bilirubin 0.5, alkaline phosphatase 103, AST 8, ALT less than 7, albumin 3.3, ferritin 31.9, iron 44, TIBC 275. FOBT is negative. Lactic acid 1.3. Urinalysis 3+ bacteria. Blood culture shows no growth to date. Urine culture shows mixed enteric keerthi. IMAGING STUDIES: Chest x-ray showed no acute processes. Brain CT showed chronic ischemic white matter changes, but no acute processes. ASSESSMENT AND PLAN: 1. Acute on chronic microcytic anemia. 2. History of colon polyps. 3. Seizure disorder, with recent seizure prompting admission. Conversation with the patient is quite difficult. She is quite tangential in her conversations. However, I do believe I was able to adequately explain our concerns about her microcytic anemia. Note FOBT is negative, but particularly with her prior history of colon polyps 13 years ago, occult GI bleeding lesion is certainly a possibility as contributor to the anemia. She has required blood transfusion and responded well to this. I recommended we consider EGD and colonoscopy for further investigation. In the end, the patient does express agreement and desire to get this done this hospitalization. She has had a regular diet today, so we will have her on clear liquid diet tomorrow, with plan to administer bowel preparation tomorrow evening and perform EGD and colonoscopy the following day. We will discuss with her tomorrow as well to make sure this is still what everyone wants to do. Thank you for the consultation. Please call back anytime with questions or concerns. Job ID: [id number]
[2019-03-23 05:44] LABS: Anion Gap 15 mmol/L (10-20); BUN (Urea Nitrogen) 6 mg/dL (9.8-20.1); Calc. Creatinine Clearance 63 mL/min (70-130); Calcium 8.4 mg/dL (7.8-10.44); Carbon Dioxide 23 mmol/L (23-31); Chloride 102 mmol/L (98-107); Estimated GFR-MDRD 90; Glucose 87 mg/dL (83-110); Potassium 4.6 mmol/L (3.5-5.1); Sodium 135 mmol/L (136-145)
[2019-03-23 05:57] LABS: Band 3 % (5-11); Eosinophils 1 % (0-10); Hemoglobin 10.7 g/dL (12.0-16.0); Hypochromia SLIGHT = 6-15 cells (100X) (0-5/hpf); Lymphocytes 17 % (21-51); MDiff Complete? YES; Mean Corpuscular HGB CONC 33.1 g/dL (32.0-36.0); Mean Corpuscular Hemoglobin 22.8 pg (27.0-31.0); Mean Corpuscular Volume 68.9 fL (78.0-98.0); Mean Platelet Volume 8.1 fL (7.4-10.4); Monocytes 12 % (0-10); Neutrophil 67 % (42-75); Platelet Count 349 thou/uL (130-400); Platelet Morphology Comment Appears Adequate; RBC Distribution Width 20.9 % (11.5-14.5); White Blood Cell (WBC) Count 7.1 thou/uL (4.8-10.8)
[2019-03-23] MEDS: Aspirin 81 mg Enteric Coated Tablet PO SCH (09:03)
[2019-03-23] MEDS: Amlodipine 5 MG TAB PO SCH ×2 (09:04→22:55)
[2019-03-23] MEDS: Escitalopram Oxalate 10 mg Tablet PO SCH (09:04)
[2019-03-23] MEDS: Lisinopril 20 MG TAB PO SCH ×2 (09:05→22:57)
[2019-03-23] MEDS: levETIRAcetam 500 MG TAB PO SCH ×2 (09:06→22:57)
[2019-03-23] MEDS: Famotidine 20 MG TAB PO SCH ×2 (10:03→22:56)
--- NOTE | 2019-03-23 10:47 | HP ---
CHIEF COMPLAINT: Seizure episode. HISTORY OF PRESENT ILLNESS: Ms. Lozada is an 78-year-old Afro-[place]ron[place] female with past medical history of hypertension, seizure disorder, and schizoaffective disorder, who was found unresponsive in the house. According to , the patient went to lie down in the bed. Later when he tried to see her, she was not responding and she had foaming in the mouth. He is not sure whether she had seizure episode and what happened. She did not have any chest pain or shortness of breath before that or any dizziness. She did not complain of anything, but she has not been eating well for the last few days according to him, so EMS was called. EMS found the patient unresponsive and she was brought to the ER where she was evaluated. The patient was awake by the time she came to the ER. Her Keppra level was low. According to the , he gives her medication, but he is not sure whether she is taking them. The patient was also found to have severe hypokalemia. The patient received KCl replacement as well as Keppra and IV fluids. The patient also received Levaquin for possible UTI as well as possible questionable pneumonia according to the ER physician. The patient is being admitted for further evaluation and management. PAST MEDICAL HISTORY: 1. Seizure disorder. 2. Hypertension. 3. Hyperlipidemia. 4. Schizoaffective disorder. 5. Mild coronary artery disease. 6. History of respiratory failure. 7. History of aspiration pneumonia. PAST SURGICAL HISTORY: Nothing significant. CURRENT MEDICATIONS: The patient is on; 1. Amlodipine 5 mg b.i.d. 2. Aspirin 81 mg daily. 3. Lexapro 10 mg daily. 4. Pepcid 20 b.i.d. 5. Keppra 750 b.i.d. 6. Lisinopril 20 b.i.d. 7. Metoprolol Succinate 100 mg daily. 8. Risperdal 0.25 mg at bedtime. 9. Rosuvastatin 20 mg at bedtime. ALLERGIES: NKDA. FAMILY HISTORY: Nothing contributory. SOCIAL HISTORY: The patient lives with her . No history of smoking. No history of alcohol. REVIEW OF SYSTEMS: CARDIOVASCULAR: No chest pain. No shortness of breath. RESPIRATORY: No fever or cough. GASTROINTESTINAL: No nausea, vomiting, or abdominal pain. CENTRAL NERVOUS SYSTEM: No headache. No dizziness. PHYSICAL EXAMINATION: GENERAL: The patient is alert, awake, and oriented x2. VITAL SIGNS: Temperature 98, pulse 118, respirations 20, and blood pressure initially 160/70 and now 130/80. HEENT: Head is normocephalic, atraumatic. Pupils equal and reactive. Nasopharynx is pale and dry. NECK: Supple. No JVD. LUNGS: Bilateral air entry present. No rales. No rhonchi. HEART: S1 and S2, regular. ABDOMEN: Soft. No distention. No tenderness. Normal bowel sounds. RECTAL: Deferred. CENTRAL NERVOUS SYSTEM: No focal deficits. LABORATORY DATA: CBC shows WBC 10.5, hemoglobin 6.8, hematocrit 21, platelets 435. Metabolic panel; sodium 131, potassium 2.8, chloride 99, CO2 of 23, BUN of 10, creatinine 0.9, glucose 160. Troponin I 0.139. Keppra level was less than 2. Urinalysis showed wbc's 0-3 and bacteria 3+. Chest x-ray negative. CT of the brain unremarkable. EKG showed sinus tachycardia with heart rate of 115. No acute ST -T changes seen. ASSESSMENT: 1. Possible seizure episode. 2. Severe hypokalemia. 3. Severe anemia. 4. Hypertension. 5. Schizoaffective disorder. 6. Hyperlipidemia. 7. Mild coronary artery disease. PLAN: 1. Vital signs q.4 hours. 2. Activity as tolerated. 3. Allergies NKDA. 4. Hep-Lock. 5. Continue home medications. 6. KCl replacement. 7. Stool for occult blood x3. 8. Serum iron, TIBC, ferritin level. 9. GI consult. 10. Seizure precautions. Job ID: [id number] [facility]
[2019-03-23] MEDS ORDERED: GoLYTELY 4,000 ml Bottle PO SCH ×2 (13:45→17:00)
--- NOTE | 2019-03-23 14:07 | PRG ---
DATE OF SERVICE: 03/23/2019 SUBJECTIVE: Ms. Lozada is feeling okay. No events overnight. Hemoglobin came up to 10.7 with initial transfusion. No complaint of abdominal pain or melena. OBJECTIVE: VITAL SIGNS: Temperature 98.2, pulse 63, blood pressure 123/58, and 97% oxygen saturation on room air. GENERAL: In no acute distress. HEART: Regular rate and rhythm. LUNGS: Clear to auscultation bilaterally. ABDOMEN: Soft, nontender to palpation. EXTREMITIES: No peripheral edema. LABORATORY STUDIES: Hemoglobin 10.7, MCV 68.9, WBC 7.1, platelets 349. Sodium 135, potassium 4.6, BUN 6, creatinine 0.75 vitamin B12 is 305, folic acid is only 6.1, ferritin 31.91. ASSESSMENT AND PLAN: 1. Lqhzf-dj-aeztnpt microcytic anemia, responded well to transfusion, currently stable. 2. History of colon polyps. 3. Seizure disorder with recent seizures prompting admission. I was able to speak with the patient's as well as the patient today. They were both in agreement with esophagogastroduodenoscopy/colonoscopy tomorrow for further workup of her microcytic anemia, rule out occult gastrointestinal bleeding lesion, particularly with her remote history of colon polyps. We will administer bowel preparation this evening followed by esophagogastroduodenoscopy/colonoscopy tomorrow. Note, she also has folic acid deficiency, so I would recommend folic acid supplementation of 1 mg daily. Job ID: [id number]
[2019-03-23] MEDS: Rosuvastatin 20 MG TAB PO SCH (22:55)
[2019-03-23] MEDS: risperiDONE 0.25 MG TAB PO SCH (22:57)
[2019-03-24] MEDS: Famotidine 20 MG TAB PO SCH ×2 (08:39→23:25)
[2019-03-24] MEDS: Aspirin 81 mg Enteric Coated Tablet PO SCH (08:39)
[2019-03-24] MEDS: Escitalopram Oxalate 10 mg Tablet PO SCH (08:39)
[2019-03-24] MEDS: levETIRAcetam 500 MG TAB PO SCH ×2 (08:39→23:21)
[2019-03-24] MEDS: Lisinopril 20 MG TAB PO SCH ×2 (08:39→23:19)
[2019-03-24] MEDS: Amlodipine 5 MG TAB PO SCH ×2 (08:39→23:20)
[2019-03-24] MEDS ORDERED: Lidocaine 1% PF 5 ML VIAL ONE (10:36)
[2019-03-24] MEDS ORDERED: PROPOFOL 200 MG/20 ML VIAL ONE (10:36)
--- NOTE | 2019-03-24 14:31 | OP ---
DATE OF PROCEDURE: 03/24/2019 INDICATIONS FOR PROCEDURE: Microcytic anemia of unknown etiology, probable iron deficiency anemia. PROCEDURES: Esophagogastroduodenoscopy with biopsy, colonoscopy with biopsy and polypectomy. DESCRIPTION OF PROCEDURE: After the risks and benefits of the procedures were explained to the patient including risks of bleeding, infection, perforation, reactions to anesthesia, aspiration, and/or pain, informed consent was obtained. The patient was then taken to the endoscopy suite, where she was placed in the left lateral decubitus position, followed by deep sedation via propofol and anesthesia support. Once adequate sedation was achieved, the standard gastroscope was introduced into the mouth with intubation of the esophagus, stomach, and the proximal small intestines with the findings listed below. The patient tolerated this portion of the procedure well with no immediate perioperative complications. Upon conclusion of this portion of the procedure, all equipment was removed from the patient and the bed was transferred 180 degrees in anticipation of the colonoscopy. After a digital rectal examination was performed, the standard colonoscope was introduced into the rectum and advanced to the terminal ileum without difficulty. The quality of the prep was fair to poor with a cbzl-[id number] amount of solid retained stool seen in primarily the left colon extending from 35 to 60 cm. The patient tolerated the procedure well with no immediate perioperative complications. Upon conclusion of the procedure, all equipment was removed from the patient and she was transferred to PACU in satisfactory condition. ESOPHAGOGASTRODUODENOSCOPY FINDINGS: Esophagus: Normal-appearing mucosa was seen in the proximal, mid, and distal esophagus. There were no evidence of erosions, ulcerations, mass lesions, or active/recent bleeding. Stomach: Normal-appearing mucosa was seen in the gastric cardia, fundus, body, greater curvature, and incisura. A 4 to 5 mm submucosal nodule with an umbilicated center was seen in the gastric antrum, consistent with a pancreatic rest. There was no associated mucosal erythema, ulceration, or mucosal breakdown (normal healthy appearing mucosa overlying this nodule). No biopsies were taken during this evaluation. Otherwise, there was no evidence of erosions, ulcerations, mass lesions, or active/recent bleeding. Duodenum: Normal-appearing mucosa was seen in both the duodenal bulb and second portion of the duodenum. There were no evidence of erosions, ulcerations, mass lesions, or active/recent bleeding. Random duodenal biopsies were taken from both the bulb and second portion for evaluation of possible celiac sprue contributing to her anemia. IMPRESSION: 1. Incidental finding of a 5 mm pancreatic rest in the gastric antrum. 2. Otherwise, normal upper endoscopy. 3. No etiology for the patient's anemia was seen during this examination. COLONOSCOPY FINDINGS: Digital rectal exam, medium to large external hemorrhoids were seen on external examination that did exhibit mild oozing of blood with palpation. Increased anal sphincter tone was also noted on digital rectal exam. Colon findings: Normal-appearing mucosa was seen in the terminal ileum. Normal-appearing mucosa was then seen at the terminal ileocecal valve, appendiceal orifice, and within the cecum itself. A 4 to 5 mm polyp was seen in the ascending colon and completely removed with snare cautery polypectomy. It was retrieved and placed in a specimen jar for evaluation, otherwise normal-appearing mucosa was seen in the remaining ascending colon. A 4 mm polyp was seen in the transverse colon and completely removed with snare cautery polypectomy. It was retrieved and placed in a specimen jar for evaluation. Normal-appearing mucosa was then seen in the proximal descending colon. However at approximately 30 to 35 cm past the anal verge, there was a segment of colon that showed [id number]-yv-ndvzlwko dilation that was associated with increased mucosal erythema, ulceration, and what appeared to be pseudopolyp formation. There were also some areas of where the haustra had undergone mucosal changes secondary to chronic inflammation, where there was a hole in the haustra itself. Multiple biopsies were taken from this region and placed in a specimen jar for evaluation. At approximately 30 cm, there was mild luminal narrowing, but otherwise normal-appearing mucosa at this region. Normal-appearing mucosa was then seen in the sigmoid colon and rectum. Small internal hemorrhoids and hypertrophied anal papillae were seen on rectal retroflexion. IMPRESSION: 1. 4 to 5 mm ascending colon polyp, status post snare cautery polypectomy. 2. 4 mm transverse colon polyps, status post snare cautery polypectomy. 3. Region of increased mucosal erythema, ulceration, and what appears to be pseudopolyp formation with haustra breakdown consistent with chronic ischemia versus infection versus IBD, status post biopsies. 4. Internal and external hemorrhoids (actively oozing external hemorrhoids). 5. Hypertrophied anal papillae. 6. Increased anal sphincter tone. RECOMMENDATIONS: 1. We would continue to trend the patient's hemoglobin and hematocrit and transfuse as necessary to maintain hemoglobin and hematocrit of 7/21. 2. Continue to monitor clinically for signs of active GI bleeding. 3. We will follow up on the biopsy results to further guide management. 4. We will consider CT angiography of the abdominal vessels for possible narrowing contributing to chronic ischemia in the distal descending colon. 5. We will place the patient on a higher fiber diet given the presence of hemorrhoids. We will continue to follow. Please call with any questions. Job ID: [id number]
[2019-03-24] MEDS: Rosuvastatin 20 MG TAB PO SCH (23:19)
[2019-03-24] MEDS: risperiDONE 0.25 MG TAB PO SCH (23:19)
[2019-03-25] MEDS: Aspirin 81 mg Enteric Coated Tablet PO SCH (08:28)
[2019-03-25] MEDS: levETIRAcetam 500 MG TAB PO SCH (08:29)
[2019-03-25] MEDS: Amlodipine 5 MG TAB PO SCH (08:29)
[2019-03-25] MEDS: Lisinopril 20 MG TAB PO SCH (08:29)
[2019-03-25] MEDS: Escitalopram Oxalate 10 mg Tablet PO SCH (08:29)
[2019-03-25] MEDS: Famotidine 20 MG TAB PO SCH (08:29)
[2019-03-25 08:51] LABS: #Eosinphils 0.1 thou/uL (0.0-0.7); #Lymphocytes 0.8 thou/uL (1.20-3.40); #Monocytes 0.8 thou/uL (0.11-0.59); #Neutrophils 4.7 thou/uL (1.40-6.50); %Basophils 0.1 % (0.0-1.0); %Eosinophils 2.1 % (0.0-10.0); %Lymphocytes 12.7 % (21.0-51.0); %Monocytes 11.9 % (0.0-10.0); %Neutrophils 73.2 % (42.0-75.0); Hemoglobin 11.2 g/dL (12.0-16.0); Mean Corpuscular HGB CONC 32.1 g/dL (32.0-36.0); Mean Corpuscular Volume 68.6 fL (78.0-98.0); Platelet Count 378 thou/uL (130-400); White Blood Cell (WBC) Count 6.5 thou/uL (4.8-10.8)
[2019-03-25] MEDS ORDERED: Folic Acid 1 MG TAB PO SCH (09:00)
[2019-03-25] MEDS ORDERED: Cyanocobalamin (Vitamin B-12) 1,000 MCG TAB PO SCH (09:00)
[2019-03-25 09:07] LABS: Anion Gap 13 mmol/L (10-20); BUN (Urea Nitrogen) 6 mg/dL (9.8-20.1); Calc. Creatinine Clearance 62 mL/min (70-130); Calcium 8.5 mg/dL (7.8-10.44); Carbon Dioxide 25 mmol/L (23-31); Chloride 101 mmol/L (98-107); Estimated GFR-MDRD 89; Glucose 110 mg/dL (83-110); Potassium 3.1 mmol/L (3.5-5.1); Sodium 136 mmol/L (136-145)
[2019-03-25] MEDS ORDERED: Iopamidol-370 76% 500 ML 1 ML ONE (11:36)
[2019-03-25] MEDS ORDERED: Potassium Chloride 20 MEQ TAB PO SCH ×2 (15:00→21:00)
[2019-03-25 15:40] VITALS: BP 157/67; TEMP 98.4
--- NOTE | 2019-03-25 16:40 | CT ---
CT ANGIO OF ABDOMEN AND PELVIS PERFORMED WITH INTRAVENOUS CONTRAST ENHANCEMENT WITH 3D RECONSTRUCTION : 03/24/19 HISTORY: Abdominal pain. Evaluation for mesenteric ischemia. The lung bases show COPD type changes with air trapping. No peripheral infiltrative process. There is fluid within the distal esophagus which may indicate reflux. The liver and spleen as well as pancreas and gallbladder regions appear unremarkable on this angiogra phic phase exam. Right and left adrenal glands and right and left kidneys are normal in size. There is no significant periaortic or mesenteric adenopathy. Angiographic portion of the study shows atherosclerotic change within a normal caliber aorta. No diss ection. There is prominent plaque formation and a moderate degree of stenosis of the origin of the c eliac artery. There is also atherosclerotic plaque at the origin of the superior mesenteric artery wh ich shows a mild degree of stenosis. No signs for dissection. Inferior mesenteric artery is patent. T here are prominent vessels arising from the superior mesenteric arteries extending to the more proxim al descending colon just below the splenic flexure. There is suggestion of wall thickening in this ar ea and there is pericolonic fat stranding. There is some air density extending into the wall potentia lly pneumatosis but may just be on the basis of some diverticular change. Some type of ulcerative pro cess is not definitely excluded. The fat stranding in this area is worse and it does not have the typ ical appearance for diverticulitis. Colonoscopy would be recommended for further assessment. No obstr uction is seen associated with this. There is no significant pelvic lymphadenopathy or mass. IMPRESSION: 1. Abnormal appearance to the proximal descending colon just below the level of the splenic flex ure. There is an area that is approximately 6 cm in length where there is wall thickening. There is s ome prominent pericolonic vessels in this area and pericolonic fat stranding. It would be unusual for this to represent focal ischemic area and does not have the typical appearance for diverticulitis. S ome of the air extending into the wall region is probably related to small diverticula but pneumatosi s or some type of ulcerative process is not excluded. Further evaluation with colonoscopy is recommen ded. 2. These findings were discussed with Jennifer, the patient's nurse who states that colonoscopy h as been performed and biopsies were obtained of the area in question. POS: OFF
== END 2019-03-25 17:39 | disposition home or self-care (01) | DRG 101 ==
LOC: ERS 19:18 → 2SE 03-22 00:12
PROVIDERS: ADMIT Internal Medicine; ATTEND Internal Medicine
PROC: 30233N1 Transfusion of Nonautologous Red Blood Cells into Peripheral Vein, Percutaneous Approach (ICD-10-PCS; 2019-03-22)
PROC: 0DB98ZX Excision of Duodenum, Via Natural or Artificial Opening Endoscopic, Diagnostic (ICD-10-PCS; principal; 2019-03-24)
PROC: 0DBK8ZZ Excision of Ascending Colon, Via Natural or Artificial Opening Endoscopic (ICD-10-PCS; 2019-03-24)
PROC: 0DBL8ZZ Excision of Transverse Colon, Via Natural or Artificial Opening Endoscopic (ICD-10-PCS; 2019-03-24)
PROC: 0DBE8ZX Excision of Large Intestine, Via Natural or Artificial Opening Endoscopic, Diagnostic (ICD-10-PCS; 2019-03-24)
DX: G40.909 Epilepsy, unspecified, not intractable, without status epilepticus (principal); N39.0 Urinary tract infection, site not specified; E87.6 Hypokalemia; D50.9 Iron deficiency anemia, unspecified; K64.4 Residual hemorrhoidal skin tags; K64.8 Other hemorrhoids; K21.9 Gastro-esophageal reflux disease without esophagitis; E78.5 Hyperlipidemia, unspecified; F41.9 Anxiety disorder, unspecified; F32.9 Major depressive disorder, single episode, unspecified; F20.9 Schizophrenia, unspecified; I25.10 Atherosclerotic heart disease of native coronary artery without angina pectoris; Z90.710 Acquired absence of both cervix and uterus; Z86.010 Personal history of colon polyps
CPT/HCPCS: 36415; 36416; 36430; 70450; 71045; 74174; 80048; 80053; 80177; 80306; 80307; 81003; 81015; 82140; 82274; 82550; 82553; 82607; 82728; 82746; 82805; 83540; 83550; 83605; 83690; 83735; 83880; 84146; 84443; 84484; 85025; 85060; 86850; 86900; 86901; 87040; 87086; 88305; 93005; 96361; 96365; 96366; J1953; J1956; J2001; J2704; P9016; Q9967

== ENCOUNTER 2019-04-14 23:47 | Inpatient (IN) | payer MEDICARE, BC ==
[2019-04-15 01:22] LABS: #Lymphocytes 0.5 thou/uL (1.20-3.40); #Neutrophils 6.3 thou/uL (1.40-6.50); %Basophils 0.1 % (0.0-1.0); %Eosinophils 0.3 % (0.0-10.0); %Lymphocytes 6.7 % (21.0-51.0); %Monocytes 12.1 % (0.0-10.0); %Neutrophils 80.8 % (42.0-75.0); Hemoglobin 10.9 g/dL (12.0-16.0); Mean Corpuscular Hemoglobin 21.7 pg (27.0-31.0); Mean Corpuscular Volume 67.9 fL (78.0-98.0); Mean Platelet Volume 11.4 fL (7.4-10.4); Platelet Count 263 thou/uL (130-400); RBC Distribution Width 20.1 % (11.5-14.5); Red Blood Cell (RBC) Count 5.02 mill/uL (4.20-5.40); White Blood Cell (WBC) Count 7.8 thou/uL (4.8-10.8)
[2019-04-15 01:41] LABS: ALT (SGPT) 7 U/L (8-55); AST (SGOT) 17 U/L (5-34); Albumin 3.2 g/dL (3.4-4.8); Alkaline Phosphatase 85 U/L (40-110); Anion Gap 13 mmol/L (10-20); BUN (Urea Nitrogen) 14 mg/dL (9.8-20.1); Bilirubin, Total 1.2 mg/dL (0.2-1.2); CK (CPK) 115 U/L (29-168); Calc. Creatinine Clearance 0 mL/min (70-130); Calcium 8.4 mg/dL (7.8-10.44); Carbon Dioxide 28 mmol/L (23-31); Chloride 96 mmol/L (98-107); Estimated GFR-MDRD 57; Globulin 3.2 g/dL (2.4-3.5); Glucose 123 mg/dL (83-110); Protein, Total 6.4 g/dL (6.0-8.3); Sodium 134 mmol/L (136-145)
[2019-04-15 01:43] LABS: Potassium 2.6 mmol/L (3.5-5.1)
[2019-04-15] MEDS ORDERED: Potassium Chloride 20 MEQ in Premix Bag 1 BAG IVPB SCH (02:00)
[2019-04-15 02:07] LABS: Bacteria/HPF 2+ HPF (None Seen); Bilirubin Negative (Negative); Blood, Urine 2+ (Negative); Clarity Turbid (Clear); Glucose, Urine (Dipstick) Normal (Negative); Leukocyte Negative Leu/uL (Negative); Nitrite Negative (Negative); Protein, Urine (Dipstick) 300 mg/dL (Neg-Trace); RBC/HPF 0-3 HPF (0-3); Squamous Epithelial 0-3 HPF (0-3); Urobilinogen 3 mg/dL (Less than 2)
[2019-04-15] MEDS ORDERED: cefTRIAXone\\ROCEPHIN 2 GM VIAL ONE (02:22)
[2019-04-15] MEDS ORDERED: Ondansetron ODT 4 MG TAB SL PRN (04:30)
[2019-04-15] MEDS ORDERED: Ondansetron PF 4 MG/2 ML Vial IVP PRN (04:30)
[2019-04-15] MEDS ORDERED: Acetaminophen 325 MG TAB PO PRN (04:30)
--- NOTE | 2019-04-15 07:58 | RAD ---
EXAM: Single view of the chest HISTORY: Cough COMPARISON: 03/21/2019 FINDINGS: Single view of the chest shows a normal sized cardiomediastinal silhouette. There is no marian dence of consolidation, mass, or pleural effusion. The bones are unremarkable. IMPRESSION: No evidence of acute cardiopulmonary disease
[2019-04-15] MEDS ORDERED: Folic Acid 1 MG TAB PO SCH (11:00)
[2019-04-15] MEDS ORDERED: levETIRAcetam 500 MG TAB PO SCH (11:00)
[2019-04-15] MEDS ORDERED: Cyanocobalamin (Vitamin B-12) 1,000 MCG TAB PO SCH (11:00)
[2019-04-15] MEDS ORDERED: Aspirin Chewable 81 MG TAB PO SCH (11:00)
[2019-04-15] MEDS ORDERED: Famotidine 20 MG TAB PO SCH (11:00)
[2019-04-15] MEDS ORDERED: Lisinopril 20 MG TAB PO SCH (11:00)
[2019-04-15] MEDS ORDERED: Escitalopram Oxalate 10 mg Tablet PO SCH (11:00)
[2019-04-15] MEDS ORDERED: Amlodipine 5 MG TAB PO SCH (11:00)
[2019-04-15 14:05] LABS: Anion Gap 10 mmol/L (10-20); BUN (Urea Nitrogen) 11 mg/dL (9.8-20.1); Calc. Creatinine Clearance 54 mL/min (70-130); Calcium 7.8 mg/dL (7.8-10.44); Carbon Dioxide 28 mmol/L (23-31); Chloride 97 mmol/L (98-107); Estimated GFR-MDRD 81; Glucose 126 mg/dL (83-110); Sodium 133 mmol/L (136-145)
[2019-04-15 14:13] LABS: Potassium 2.3 mmol/L (3.5-5.1)
[2019-04-15] MEDS: Potassium Chloride 20 MEQ in Premix Bag 1 BAG IVPB SCH ×3 (16:00→19:55)
--- NOTE | 2019-04-15 18:51 | HP ---
CHIEF COMPLAINT: Weakness, not eating. HISTORY OF PRESENT ILLNESS: Ms. Lozada is an 78-year-old female with past medical history of seizure disorder, schizophrenia, hypertension, who was brought in because has not been eating since she went home from the hospital, has been losing weight and also feeling very weak. claims maybe she is taking her medications. Did not have any chest pain or shortness of breath. According to him, she vomits and she is not able to eat. Also, felt that her both feet are cold. The patient also fell once, no loss of consciousness, so the patient was brought into the hospital. In the ER, the patient was evaluated and found to be severely hypokalemic with a potassium of 2.6 and evidence of urine tract infection. The patient was given potassium as well as given one dose of Rocephin, given IV fluid bolus and admitted for further evaluation and management. PAST MEDICAL HISTORY: 1. Hypertension. 2. Seizure disorder. 3. Hyperlipidemia. 4. Schizoaffective disorder. 5. Mild coronary artery disease. 6. History of respiratory failure. 7. History of aspiration pneumonia. 8. History of anemia, status post EGD and colonoscopy. PAST SURGICAL HISTORY: Nothing significant. CURRENT MEDICATIONS: 1. Amlodipine 5 mg b.i.d. 2. Aspirin 81 mg two tablets daily. 3. Vitamin B12 of 1000 mcg daily. 4. Lexapro 10 mg daily. 5. Famotidine 20 b.i.d. 6. Folic acid 1 mg daily. 7. Keppra 750 b.i.d. 8. Lisinopril 20 b.i.d. 9. Metoprolol 100 mg daily. 10. Risperdal 0.25 at bedtime. 11. Crestor 20 mg at bedtime. ALLERGIES: NKDA. FAMILY HISTORY: Nothing contributory. SOCIAL HISTORY: The patient lives with her . No history of smoking. No history of alcohol or drug abuse. REVIEW OF SYSTEMS: CARDIOVASCULAR: No chest pain. No shortness of breath. RESPIRATORY: No fever or cough. GASTROINTESTINAL: Anorexia and loss of weight. No nausea. Has some evidence of history of vomiting. No abdominal pain. CENTRAL NERVOUS SYSTEM: No headache, dizziness. PHYSICAL EXAMINATION: GENERAL: The patient is alert, awake, not well oriented. VITAL SIGNS: Temperature 98, pulse 56, respirations 20, blood pressure is 98/60 initially, it goes up to 140/60. HEENT: Head is normocephalic, atraumatic. Pupils equal and reactive. Nasopharynx is pale and dry. NECK: Supple. No JVD. LUNGS: Bilateral air entry present. No rales, no rhonchi. HEART: S1 and S2, regular. ABDOMEN: Soft. No distention. No tenderness. No organomegaly. Bowel sounds present. RECTAL: Deferred. CENTRAL NERVOUS SYSTEM: No focal deficits. LABORATORY DATA: CBC shows WBC 7.8, hemoglobin 10, platelets 263. Metabolic panel; sodium 134, potassium 2.6, chloride 96, CO2 28, urea nitrogen 14, creatinine 1.1, glucose 123. Urinalysis, wbc 11 to 20, bacteria 2+. IMAGING STUDIES: Chest x-ray negative. EKG shows normal sinus rhythm, no acute ST-T wave changes seen. ASSESSMENT: 1. Severe hypokalemia. 2. Generalized weakness. 3. Urinary tract infection. 4. Anorexia and weight loss. 5. Hypertension. 6. Seizure disorder. 7. Bipolar disorder. 8. Status post fall. 9. History of gastroesophageal reflux disease. 10. Mild peripheral vascular disease. PLAN: 1. Vital signs q.4 hours. 2. Activity, as tolerated. 3. Allergies, NKDA. 4. Hep-Lock. 5. KCl IV piggyback 20 mEq x3 doses. 6. Continue home medications. 7. Rocephin 2 g IV piggyback. 8. Magnesium level. 9. GI consult. Job ID: [id number] [id number]
[2019-04-15] MEDS: levETIRAcetam 500 MG TAB PO SCH (19:58)
[2019-04-15] MEDS: Famotidine 20 MG TAB PO SCH (20:00)
[2019-04-15] MEDS: Lisinopril 20 MG TAB PO SCH (20:02)
[2019-04-15] MEDS: Amlodipine 5 MG TAB PO SCH (20:02)
[2019-04-15] MEDS: risperiDONE 0.25 MG TAB PO SCH (20:03)
[2019-04-15] MEDS: Rosuvastatin 20 MG TAB PO SCH (20:05)
[2019-04-15] MEDS ORDERED: Prevnar 13-Val Conj/PF 0.5 ML SYRINGE IM ONE (21:00)
[2019-04-15] MEDS ORDERED: FLU VACC TS2019-20(65YR UP)/PF 180 MCG/0.5 ML SYRINGE IM ONE (21:00)
[2019-04-16] MEDS: cefTRIAXone\\ROCEPHIN 2 GM in Sodium Chloride 0.9% 100 ML IVPB SCH (02:34)
[2019-04-16 06:52] LABS: Anion Gap 11 mmol/L (10-20); BUN (Urea Nitrogen) 11 mg/dL (9.8-20.1); Calc. Creatinine Clearance 57 mL/min (70-130); Calcium 7.6 mg/dL (7.8-10.44); Carbon Dioxide 22 mmol/L (23-31); Chloride 100 mmol/L (98-107); Estimated GFR-MDRD 86; Glucose 95 mg/dL (83-110); Potassium 3.2 mmol/L (3.5-5.1); Sodium 130 mmol/L (136-145)
[2019-04-16 07:23] LABS: #Basophils 0.1 thou/uL (0.0-0.2); #Lymphocytes 0.8 thou/uL (1.20-3.40); #Monocytes 1.1 thou/uL (0.11-0.59); #Neutrophils 6.6 thou/uL (1.40-6.50); %Basophils 1.1 % (0.0-1.0); %Eosinophils 0.2 % (0.0-10.0); %Monocytes 12.6 % (0.0-10.0); %Neutrophils 77.2 % (42.0-75.0); Hemoglobin 10.9 g/dL (12.0-16.0); Mean Corpuscular HGB CONC 31.7 g/dL (32.0-36.0); Mean Corpuscular Hemoglobin 21.8 pg (27.0-31.0); Mean Corpuscular Volume 68.8 fL (78.0-98.0); Mean Platelet Volume 11.4 fL (7.4-10.4); Platelet Count 216 thou/uL (130-400); RBC Distribution Width 20.2 % (11.5-14.5); Red Blood Cell (RBC) Count 5.01 mill/uL (4.20-5.40); White Blood Cell (WBC) Count 8.6 thou/uL (4.8-10.8)
[2019-04-16] MEDS: Aspirin Chewable 81 MG TAB PO SCH (08:44)
[2019-04-16] MEDS: Cyanocobalamin (Vitamin B-12) 1,000 MCG TAB PO SCH (08:44)
[2019-04-16] MEDS: Folic Acid 1 MG TAB PO SCH (08:46)
[2019-04-16] MEDS: Escitalopram Oxalate 10 mg Tablet PO SCH (08:46)
[2019-04-16] MEDS: Lisinopril 20 MG TAB PO SCH ×2 (08:46→21:59)
[2019-04-16] MEDS: Famotidine 20 MG TAB PO SCH ×2 (08:46→19:51)
[2019-04-16] MEDS: Amlodipine 5 MG TAB PO SCH ×2 (08:47→21:59)
[2019-04-16] MEDS: levETIRAcetam 500 MG TAB PO SCH ×2 (08:47→19:49)
[2019-04-16] MEDS: Potassium Chloride 20 MEQ TAB PO SCH ×3 (09:24→18:19)
[2019-04-16] MEDS: Sodium Chloride 0.9% 1,000 ML IV SCH (12:14)
[2019-04-16] MEDS: risperiDONE 0.25 MG TAB PO SCH (19:48)
[2019-04-16] MEDS: Rosuvastatin 20 MG TAB PO SCH (19:51)
[2019-04-16] MEDS ORDERED: Mirtazapine 15 MG TAB PO SCH (21:00)
[2019-04-17 05:33] LABS: #Basophils 0.1 thou/uL (0.0-0.2); #Lymphocytes 0.9 thou/uL (1.20-3.40); #Monocytes 0.9 thou/uL (0.11-0.59); #Neutrophils 5.1 thou/uL (1.40-6.50); %Basophils 0.7 % (0.0-1.0); %Eosinophils 0.3 % (0.0-10.0); %Lymphocytes 12.8 % (21.0-51.0); %Monocytes 13.1 % (0.0-10.0); %Neutrophils 73.2 % (42.0-75.0); Hemoglobin 10.6 g/dL (12.0-16.0); Mean Corpuscular HGB CONC 30.5 g/dL (32.0-36.0); Mean Corpuscular Hemoglobin 21.1 pg (27.0-31.0); Mean Corpuscular Volume 69.1 fL (78.0-98.0); Mean Platelet Volume 4.7 fL (7.4-10.4); Platelet Count 191 thou/uL (130-400); RBC Distribution Width 20.5 % (11.5-14.5); Red Blood Cell (RBC) Count 5.04 mill/uL (4.20-5.40)
[2019-04-17 05:48] LABS: Anion Gap 10 mmol/L (10-20); BUN (Urea Nitrogen) 11 mg/dL (9.8-20.1); Calc. Creatinine Clearance 58 mL/min (70-130); Calcium 7.8 mg/dL (7.8-10.44); Carbon Dioxide 24 mmol/L (23-31); Chloride 100 mmol/L (98-107); Estimated GFR-MDRD 89; Glucose 92 mg/dL (83-110); Magnesium 2.1 mg/dL (1.6-2.6); Potassium 3.3 mmol/L (3.5-5.1); Sodium 131 mmol/L (136-145)
--- NOTE | 2019-04-17 08:30 | CON ---
DATE OF CONSULTATION: 04/16/2019 REASON. FOR CONSULTATION: Anorexia, poor oral intake. HISTORY OF PRESENT ILLNESS: Ms. Tl Lozada is a very fragile looking, 78-year-old, female brought to the ER by the family after she had a fall at home. The initial evaluation did not show any evidence of fracture. No history of any loss of consciousness or fall. She is also on UTI antibiotic therapy. I was asked to see this patient by Dr. Richardson because of a history of poor oral intake since her discharge from the hospital three weeks ago. Unfortunately, when I saw the patient in the room, there is no family member available. Most of the history was obtained by going through the admitting history and physical by Dr. Richardson. Apparently, she has history of seizure disorder , schizophrenia, and hypertension. She was recently hospitalized because of what appears to be some pneumonia and was seen by Pulmonology. She was also seen by Gastroenterology by Dr. Calloway and Dr. Reilly. She was seen by Dr. Calloway because of anemia. She had an EGD and a colonoscopy with minimal findings. She had some polyps taken out by Dr. Haque and benign. No malignancy seen. She also had negative CT angiogram on last admission. Since discharge, the patient has been eating very well. The patient tells me she does not feel like eating, and she does not have an appetite. I talked to the floor nurse Shayna Estela, and she tells me she ate at least 40% of breakfast today. There is no abdominal pain. No history any nausea or vomiting. No relevant history. MEDICAL ILLNESS: 1. Hypertension. 2. Seizure disorder. 3. Hyperlipidemia. 4. Schizoaffective disorder. 5. Mild coronary artery disease. 6. History of respiratory failure in the past. 7. Aspiration pneumonia. 8. Anemia, status post EGD and colonoscopy 3 weeks ago. MEDICATIONS: List reviewed, which include 1. Aspirin. 2. Amlodipine with vitamin B12. 3. Lexapro. 4. Famotidine. 5. Folic acid. 6. Keppra. 7. Lisinopril. 8. Metoprolol. 9. Risperdal. 10. Crestor. ALLERGIES: NONE. FAMILY HISTORY: No family history of any cancer, stroke, or heart disease. SOCIAL HISTORY: She is . Lives with her . No history of smoking or alcohol intake. SYSTEM REVIEW: Not obtainable as she is not a very good historian. PHYSICAL EXAMINATION: GENERAL: Revealed a fragile looking elderly black female, appears very comfortable. She is awake and appears comfortable in no distress. Denies any abdominal pain , nausea, or vomiting. VITAL SIGNS: Temperature 98 degrees Fahrenheit, pulse is 58, and blood pressure 101/67. HEENT: Conjunctivae are clear. NECK: Supple. No adenitis or thyromegaly noted. CARDIOVASCULAR SYSTEM: First and second heart sounds heard. LUNGS: Clear to auscultation. ABDOMEN: Soft. Abdomen is nondistended. Abdomen is nontender. No organomegaly. No masses. Bowel sounds normal. EXTREMITIES: Reveal no edema. LABORATORY DATA: Admitting lab; CBC: WBC 8600, hemoglobin 10.9, hematocrit 34.5, MCV 68.8, platelet count 268,000, polymorphs 77, lymphocytes 9, and monocytes 12. Chemistries: Sodium 130, potassium 3.2, chloride 100, bicarb 22, BUN is 11, creatinine 0.78, glucose is 95, calcium 7.6, and cortisol 17.60. TSH 1.0148. CLINICAL IMPRESSION: 1. An 78-year-old female with recent fall at home, but no olecranon fracture. Has hyponatremia, and is being seen by Dr. Bala Telles. She has history of anorexia and not eating well over the last 3 weeks. She has had negative esophagogastroduodenoscopy and colonoscopy 3 weeks ago. She had a negative CT angiogram. She has no specific GI symptoms except anorexia. 2. Hyponatremia and hypokalemia. 3. Hypertension. 4. Seizure disorder. 5. Schizoaffective disorder. 6. Depression. Overall impression, this is an 78-year-old female with anorexia and not eating well. As per the nurses, she ate about 40% of her meal today. There is no family member available. As she already had an EGD and colonoscopy from GI standpoint nothing more to add. One possibility is G-tube placement if she does not eat. I would recommend a ffeding tube, if her oraal intake remains low.. She had been seen by Dr. Calloway during the last admission. I will let Dr. Calloway know to assume care from tomorrow. Job ID: [id number] [facility]
--- NOTE | 2019-04-17 08:47 | CON ---
DATE OF CONSULTATION: HISTORY OF PRESENT ILLNESS: Ms. Lozada is an 78-year-old black female with known multiple medical problems and admitted for generalized malaise. The patient tells the PCP she has not been eating well. She was also noted to be hypokalemic. In addition, she was also noted to be hyponatremic. We are being consulted now for her hyponatremia. REVIEW OF SYSTEMS: Decreased appetite. Decreased energy level. Occasional confusion. No nausea. No vomiting. No chest pain. No shortness of breath. No productive cough. No fever or chills. No gross hematuria. No dysuria. No urinary frequency. No hematochezia. No melena. No hematemesis. MEDICATIONS: 1. Amlodipine 5 mg p.o. b.i.d. 2. Baby aspirin 81 mg 2 tabs b.i.d. ? 3. Ceftriaxone 2 g IV daily. 4. Vitamin B12 of 1000 mcg daily. 5. Lexapro 10 mg tablet at bedtime. 6. Pepcid 20 mg p.o. b.i.d. 7. Folic acid 1 mg daily. 8. Keppra 750 mg p.o. b.i.d. 9. Lisinopril 20 mg p.o. b.i.d. 10. Metoprolol succinate 100 mg daily. 11. K-Dur 20 mEq q.4. 12. Risperidone 0.25 mg at bedtime. 13. Rosuvastatin 20 mg at bedtime. PAST MEDICAL HISTORY: The patient has, 1. History of hypertension. 2. Status post aspiration pneumonia. 3. Seizure disorder. 4. Hyperlipidemia. 5. Schizoaffective disorder. 6. Coronary artery disease. 7. Chronic anemia. 8. Status post respiratory failure. PAST SURGICAL HISTORY: No significant surgeries. ALLERGIES: NONE. TRAUMA: None. IMMUNIZATIONS: Up-to-date. HOSPITALIZATIONS: Please see past medical history. SOCIAL HISTORY: The patient lives with her . She has one child. No smoking. No alcohol intake. She lives in [place]. No IV drug abuse. FAMILY HISTORY: No family history of ESRD. PHYSICAL EXAMINATION: VITAL SIGNS: Blood pressure is 101/57, heart rate 58, respiratory rate 18, temperature 98, and pulse ox 95% on room air. GENERAL: Awake, alert, confused, not in distress. SKIN: Decreased turgor. HEENT: She has pinkish conjunctivae. Anicteric sclerae. NECK: No neck mass. No carotid bruits. No JVD. CHEST: No deformities. LUNGS: Clear breath sounds. HEART: Normal sinus rhythm. No murmur. No gallops. No rubs. ABDOMEN: Globular, soft, and nontender. No masses. EXTREMITIES: No edema. No deformities. LABORATORY DATA: Laboratories of April 16, 2019; sodium 130, potassium 3.2, chloride 100, carbon dioxide 22, BUN 11, creatinine 0.78, and calcium 7.6. Uric acid is less than 2. Serum osmolality 269. Cortisol 17.6. TSH 1.01. ASSESSMENT AND PLAN: Hyponatremia - possibility with the decreased p.o. intake. It could be related to hypovolemic hyponatremia. We will do empiric volume repletion on normal saline 75 mL/hour. My concern is that this may be syndrome of inappropriate antidiuretic hormone secretion also. However, that is a diagnosis exclusion. She could also be hyponatremic secondary to her antipsychotic medications. The plan is simply to observe her. Gentle volume repletion. No indication for any hypertonic saline at the present time. She is mentating well. Agree with current management. Recheck basic metabolic panel in a.m. Job ID: [id number]
[2019-04-17] MEDS: Famotidine 20 MG TAB PO SCH ×2 (09:34→21:37)
[2019-04-17] MEDS: Aspirin Chewable 81 MG TAB PO SCH (09:34)
[2019-04-17] MEDS: levETIRAcetam 500 MG TAB PO SCH ×2 (09:34→21:37)
[2019-04-17] MEDS: Escitalopram Oxalate 10 mg Tablet PO SCH (09:46)
[2019-04-17] MEDS: Amlodipine 5 MG TAB PO SCH ×2 (09:46→21:37)
[2019-04-17] MEDS: Cyanocobalamin (Vitamin B-12) 1,000 MCG TAB PO SCH (09:46)
[2019-04-17] MEDS: Folic Acid 1 MG TAB PO SCH (09:46)
[2019-04-17] MEDS: Lisinopril 20 MG TAB PO SCH ×2 (09:47→21:37)
[2019-04-17] MEDS: cefTRIAXone\\ROCEPHIN 2 GM in Sodium Chloride 0.9% 100 ML IVPB SCH (09:58)
[2019-04-17] MEDS: Sodium Chloride 0.9% 1,000 ML IV SCH (10:00)
[2019-04-17] MEDS: Potassium Chloride 20 MEQ TAB PO SCH ×2 (13:43→18:11)
--- NOTE | 2019-04-17 18:51 | PRG ---
DATE OF SERVICE: 04/17/2019 SUBJECTIVE: Ms. Lozada is an 78-year-old black female, seen for the hyponatremia. In addition, the patient has been having persistent hypokalemia. We have started this patient on normal saline at the present time. IV fluid has been decreased. Serum sodium is remaining stable. With the low uric acid, she may have underlying SIADH. No other complaints. The patient is confused. Please note, she has a history of schizoaffective disorder. OBJECTIVE: VITAL SIGNS: Blood pressure 167/81, heart rate 49, respiratory rate 14, temperature 97.7, pulse ox 94%. GENERAL: Awake, alert, comfortable, not in distress. SKIN: Adequate turgor. HEENT: She has pinkish conjunctivae. Anicteric sclerae. No neck mass. No carotid bruits. No JVD. CHEST: No deformities. LUNGS: Clear breath sounds. HEART: Normal sinus rhythm. No murmur. No gallops. No rubs. ABDOMEN: Globular, soft, nontender. No masses. EXTREMITIES: No edema. No deformities. MEDICATIONS: Medications of 04/17/2019, reviewed. LABORATORY DATA: Laboratories of 04/17/2019; sodium 131, potassium 3.3, chloride 100, carbon dioxide 24, BUN 11, creatinine 0.76, calcium 7.8, magnesium 2.1. Hemoglobin 10.6. ASSESSMENT AND PLAN: 1. Hypokalemia-we will recheck renal ultrasound, rule out adrenal adenoma. Start spironolactone 25 mg p.o. daily. 2. Hyponatremia. Consider possibility of syndrome of inappropriate antidiuretic hormone secretion. Continue free water restriction at 1.25 L per 24 hours. On normal saline. If needed, we can also start the patient hypertonic saline and/or start tolvaptan. 3. Bradycardia. Metoprolol has been decreased. 4. Hypertension-in view of the decreased metoprolol, the patient has been started on spironolactone. Also consider potassium. Job ID: [id number]
--- NOTE | 2019-04-17 18:56 | PRG ---
DATE OF SERVICE: 04/17/2019 SUBJECTIVE: Ms. Lozada is eating a little bit. Dr. Boo, when he saw her in consultation yesterday said she was eating about 30% to 40% of her meals yesterday. Apparently, she had come in after she had a fall at home and the patient states she really has not had much appetite lately. Apparently, she has been on an antibiotic for UTI recently, but has had poor p.o. intake since she was in the hospital three weeks ago. As noted in Dr. Boo's admission H and P, she had an EGD and colonoscopy in last admission, which has really showed no causes of her lack of appetite. She had a negative CT angiogram. On admission, she did have hypokalemia and UTI. Other previous evaluation included CT scan of abdomen and pelvis with mesenteric angiogram. There was some questionable wall thickening in the colon, which was not found to be actually confirmed on her colonoscopy, which showed no abnormalities in the area. She had chest x-rays as well. OBJECTIVE: GENERAL: Today, she is resting, sitting in bed. She is eating a little bit. VITAL SIGNS: Temperature is 97.4, pulse is 49 to 53, and blood pressure 167/81. LUNGS: Clear. HEART: Regular rhythm. ABDOMEN: Soft and nontender. There is no rebound. There is no guarding. LABORATORY DATA: White count 7, hemoglobin 10.6, MCV is 69,000, and platelet count is 191. Sodium 131, potassium 3.3, and BUN and creatinine normal. TSH was normal on the . Liver function tests normal except for albumin of 3.2. Folate was low at 6.1 on 03/23. Cortisol on 04/16 was 17. ASSESSMENT: Anorexia. This may be related to medications, age, or even dysphagia and aspiration. She has had no evidence of malignancy on imaging studies and has had negative upper and lower endoscopies except for some polyps that were benign. Negative cortisol and TSH. She did have an area of probably some chronic ischemia of the sigmoid colon on biopsies that may explain some of the findings on CAT scan. RECOMMENDATIONS: 1. I will consider a swallowing study with speech pathology. There is concern for ongoing aspiration. 2. Consider checking levels on her antiseizure medications, if can decreasing dose of over therapeutic. It may be reasonable consider adding an appetite stimulants such as Remeron at a low dose, if that is felt to be safe with other medications. At this time, I would really try to hold off on a PEG tube in this patient. Dr. Calloway will be back tomorrow. Job ID: [id number]
[2019-04-17] MEDS: Rosuvastatin 20 MG TAB PO SCH (21:38)
[2019-04-17] MEDS: risperiDONE 0.25 MG TAB PO SCH (21:38)
[2019-04-18] MEDS: cefTRIAXone\\ROCEPHIN 2 GM in Sodium Chloride 0.9% 100 ML IVPB SCH (03:50)
[2019-04-18] MEDS: Sodium Chloride 0.9% 1,000 ML IV SCH ×3 (03:59→17:58)
[2019-04-18 05:49] LABS: %Eosinophils 0.2 % (0.0-10.0); %Lymphocytes 14.9 % (21.0-51.0); %Monocytes 13.8 % (0.0-10.0); %Neutrophils 70.3 % (42.0-75.0); Hemoglobin 10.9 g/dL (12.0-16.0); Mean Corpuscular HGB CONC 30.9 g/dL (32.0-36.0); Mean Corpuscular Hemoglobin 21.2 pg (27.0-31.0); Mean Corpuscular Volume 68.7 fL (78.0-98.0); Mean Platelet Volume 5.2 fL (7.4-10.4); Platelet Count 197 thou/uL (130-400); RBC Distribution Width 20.7 % (11.5-14.5); Red Blood Cell (RBC) Count 5.14 mill/uL (4.20-5.40); White Blood Cell (WBC) Count 5.7 thou/uL (4.8-10.8)
[2019-04-18 05:50] LABS: #Lymphocytes 0.9 thou/uL (1.20-3.40); #Monocytes 0.8 thou/uL (0.11-0.59); %Basophils 0.7 % (0.0-1.0)
[2019-04-18 06:05] LABS: Anion Gap 11 mmol/L (10-20); BUN (Urea Nitrogen) 9 mg/dL (9.8-20.1); Calc. Creatinine Clearance 62 mL/min (70-130); Calcium 7.6 mg/dL (7.8-10.44); Carbon Dioxide 21 mmol/L (23-31); Chloride 104 mmol/L (98-107); Estimated GFR-MDRD Greater than 90; Glucose 80 mg/dL (83-110); Potassium 3.7 mmol/L (3.5-5.1); Sodium 132 mmol/L (136-145)
--- NOTE | 2019-04-18 09:45 | PRG ---
DATE OF SERVICE: 04/18/2019 SUBJECTIVE: Ms. Lozada is an 78-year-old black female, who was seen by the Renal Service for the hyponatremia. Her hypokalemia was also addressed. She was started on spironolactone yesterday. Her hyponatremia could be from underlying SIADH. She is on a free water restriction. No new complaints today. The patient occasionally confused. Please note, she was bradycardic. For that reason, metoprolol has been decreased. OBJECTIVE: VITAL SIGNS: Blood pressure is 137/72, heart rate 60, respiratory rate 14, O2 saturation 94%, temperature 97.9. GENERAL: The patient is awake, supine, comfortable, not in distress. SKIN: Adequate turgor. HEENT: Pinkish conjunctivae. Anicteric sclerae. NECK: No neck mass. No carotid bruits. No JVD. CHEST: No deformities. LUNGS: Clear breath sounds. No wheezing. No crackles. HEART: Normal sinus rhythm. No murmur. No gallops. No rubs. ABDOMEN: Globular, soft, nontender. No masses. EXTREMITIES: No edema. No deformities. MEDICATIONS: Medications of April 18, 2019 reviewed. LABORATORY DATA: Laboratories on April 18, 2019; white count 5.7, hemoglobin 10.9. Sodium 132, potassium 3.7, chloride 104, carbon dioxide 21, BUN is 9, creatinine 0.71, calcium 7.6. ASSESSMENT AND PLAN: 1. Hyponatremia-improving with free water restriction. No indication for any hypertonic saline. Agree with current management. 2. Hypokalemia, improving. Currently, on spironolactone. In addition, on potassium replacement. Overall agree with current management. Recheck basic met and CBC in a.m. Job ID: [id number]
--- NOTE | 2019-04-18 09:54 | ULT ---
BILATERAL RENAL SONOGRAM: Date: 04/18/2019 HISTORY: Hypokalemia. FINDINGS: Right kidney has a normal appearance without hydronephrosis. 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 No hydronephrosis or mass evident. Urinary bladder is unremarkable with bilateral ureteral jet s visualized. IMPRESSION: No evidence of urinary tract obstruction or other acute abnormalities. POS: STUARTH
[2019-04-18] MEDS: Spironolactone 25 MG TAB PO SCH (09:59)
[2019-04-18] MEDS: Amlodipine 5 MG TAB PO SCH ×2 (09:59→21:15)
[2019-04-18] MEDS: levETIRAcetam 500 MG TAB PO SCH ×2 (10:00→21:15)
[2019-04-18] MEDS: Escitalopram Oxalate 10 mg Tablet PO SCH (10:00)
[2019-04-18] MEDS: Famotidine 20 MG TAB PO SCH ×2 (10:00→21:16)
[2019-04-18] MEDS: Lisinopril 20 MG TAB PO SCH ×2 (10:00→21:15)
[2019-04-18] MEDS: Cyanocobalamin (Vitamin B-12) 1,000 MCG TAB PO SCH (10:01)
[2019-04-18] MEDS: Folic Acid 1 MG TAB PO SCH (10:01)
[2019-04-18] MEDS: Aspirin Chewable 81 MG TAB PO SCH (10:01)
--- NOTE | 2019-04-18 20:00 | PRG ---
DATE OF SERVICE: 04/18/2019 SUBJECTIVE: Ms. Lozada really is still not eating. She had some Ensure. She did have some Remeron, but apparently, it made her pretty sleepy, so it was stopped. OBJECTIVE: VITAL SIGNS: Temperature is 98, pulse 60, blood pressure 116/48. ABDOMEN: Soft and nontender. There are no bruits. REVIEW OF SYSTEMS: The patient denies any early satiety or pain with eating. She states she has to eat. LABORATORY DATA: White count 5.7, hemoglobin 10.9, platelet count 197. BUN and creatinine 9 and 0.7. ASSESSMENT: Episode of ischemic colitis in the descending colon earlier this month on CAT scan. There are no signs of mesenteric vascular in the small bowel. She has no symptoms of mesenteric ischemia or intestinal angina. RECOMMENDATIONS: Encourage oral intake and eating. Could consider trial of Megace for appetite stimulant. Job ID: [id number]
[2019-04-18] MEDS: risperiDONE 0.25 MG TAB PO SCH (21:15)
[2019-04-18] MEDS: Rosuvastatin 20 MG TAB PO SCH (21:16)
[2019-04-19] MEDS: cefTRIAXone\\ROCEPHIN 2 GM in Sodium Chloride 0.9% 100 ML IVPB SCH (01:57)
[2019-04-19 05:40] LABS: Anion Gap 11 mmol/L (10-20); BUN (Urea Nitrogen) 8 mg/dL (9.8-20.1); Calc. Creatinine Clearance 69 mL/min (70-130); Calcium 7.4 mg/dL (7.8-10.44); Carbon Dioxide 19 mmol/L (23-31); Chloride 106 mmol/L (98-107); Estimated GFR-MDRD Greater than 90; Glucose 86 mg/dL (83-110); Potassium 3.1 mmol/L (3.5-5.1); Sodium 133 mmol/L (136-145)
[2019-04-19 06:08] LABS: #Basophils 0.1 thou/uL (0.0-0.2); #Monocytes 0.9 thou/uL (0.11-0.59); #Neutrophils 3.9 thou/uL (1.40-6.50); %Basophils 0.9 % (0.0-1.0); %Eosinophils 0.8 % (0.0-10.0); %Lymphocytes 17.7 % (21.0-51.0); %Monocytes 14.5 % (0.0-10.0); %Neutrophils 66.2 % (42.0-75.0); Hemoglobin 10.6 g/dL (12.0-16.0); Mean Corpuscular HGB CONC 31.4 g/dL (32.0-36.0); Mean Corpuscular Hemoglobin 21.8 pg (27.0-31.0); Mean Corpuscular Volume 69.5 fL (78.0-98.0); Mean Platelet Volume 11.5 fL (7.4-10.4); Platelet Count 185 thou/uL (130-400); RBC Distribution Width 20.8 % (11.5-14.5); Red Blood Cell (RBC) Count 4.87 mill/uL (4.20-5.40); White Blood Cell (WBC) Count 5.9 thou/uL (4.8-10.8)
[2019-04-19] MEDS ORDERED: Potassium Chloride 20 MEQ TAB PO SCH (08:15)
[2019-04-19] MEDS ORDERED: Megestrol Acetate 800 MG/20 ML UDCUP PO SCH (09:00)
[2019-04-19] MEDS: Sodium Chloride 0.9% 1,000 ML IV SCH (09:20)
[2019-04-19] MEDS: Amlodipine 5 MG TAB PO SCH (09:22)
[2019-04-19] MEDS: levETIRAcetam 500 MG TAB PO SCH (09:22)
[2019-04-19] MEDS: Lisinopril 20 MG TAB PO SCH (09:22)
[2019-04-19] MEDS: Aspirin Chewable 81 MG TAB PO SCH (09:23)
[2019-04-19] MEDS: Cyanocobalamin (Vitamin B-12) 1,000 MCG TAB PO SCH (09:23)
[2019-04-19] MEDS: Escitalopram Oxalate 10 mg Tablet PO SCH (09:23)
[2019-04-19] MEDS: Spironolactone 25 MG TAB PO SCH (09:23)
[2019-04-19] MEDS: Folic Acid 1 MG TAB PO SCH (09:23)
[2019-04-19] MEDS: Famotidine 20 MG TAB PO SCH (09:23)
--- NOTE | 2019-04-19 10:14 | PRG ---
DATE OF SERVICE: 04/19/2019 SUBJECTIVE: Ms. Lozada is an 78-year-old black female, who was seen for her hypokalemia and hyponatremia. Initially, we felt that she may have underlying SIADH. She is on free water restriction, her serum sodium is slowly improving. She was also noted to be on the hypokalemic side. She was started on spironolactone and getting potassium replacement. No new complaints today. She has decreased p.o. intake. OBJECTIVE: VITAL SIGNS: Blood pressure 119/60, heart rate 67, respiratory rate 14, temperature 98, and pulse ox 96%. GENERAL: Awake, alert, comfortable and not in distress. SKIN: Adequate turgor. HEENT: Pinkish conjunctivae. Anicteric sclerae. NECK: No neck mass. No carotid bruits. No JVD. CHEST: No deformities. LUNGS: Clear breath sounds. HEART: Normal sinus rhythm. No murmur. No gallops. No rubs. ABDOMEN: Globular, soft, nontender. No masses. EXTREMITIES: No edema. No deformities. MEDICATIONS: Medications of April 19, 2019, reviewed. LABORATORY DATA: Laboratories of April 19, 2019; white count 5.9, hemoglobin 10.6, sodium 133, potassium 3.1, chloride 106, carbon dioxide 19, BUN is 8, creatinine is 0.64, calcium 7.4. ASSESSMENT AND PLAN: 1. Hypokalemia, multifactorial etiology. She could simply have decreased p.o. intake since her appetite is much depressed. Continue potassium supplementation. She is also on spironolactone to consider potassium wastage if there is increased urinary loss of potassium. 2. Hyponatremia, clinically much improved. Continue free water restriction. Agree with current management. Job ID: [id number]
[2019-04-19 11:49] VITALS: BP 113/65; TEMP 97.9
--- NOTE | 2019-04-20 08:19 | PQF ---
HANK EMMANUEL [place] MD [id number] [facility] A 3304 [id number] CLINICAL DOCUMENTATION CLARIFICATION FORM: POST DISCHARGE Addendum to original discharge summary date: ____ Late entry note date: __ Date:04/20/2019 ATTN: BALA BECK MD Please exercise your independent, professional judgment in responding to the clarification form. Clinical indicators are provided on the bottom of this form for your review Please check appropriate box(s): [ x ] Protein Calorie Malnutrition: [ x ] Mild [ ] Moderate [ ] Severe [ ] Other Malnutrition (please specify) __ [ ] Underweight without malnutrition [x ] Cachexia [ ] Other diagnosis [ ] Unable to determine In addition, please specify: Present on Admission (POA): [ ] Yes [ ] No [x ] Unable to determine CLINICAL INDICATORS - SIGNS / SYMPTOMS / LABS Patient was yumi in because has not been eating since she went home from the hospital, has been losing weight and also feeling very weak-Documented in H&P on 04/15 by Brian Richardson MD Anorexia and weight loss-Documented in H&P on 04/15 by Brian Richardson MD Decreased appetite, Decreased energy level-Documented in consultation on 04/16 by Bala Beck MD Anorexia. This may be related to medication age or even dysphagia and aspiration -Documented in PN on 04/17 by Boris Gale MD Hypokalemia, Hyponatremia-Documented in PN on 04/19 by Bala Beck MD BMI-23.6 RISK FACTORS Anorexia and weight loss-Documented in H&P on 04/15 by Brian Richardson MD Hypokalemia, Hyponatremia-Documented in PN on 04/19 by Bala Beck MD TREATMENT: As per the nurses, she ate about 40% of her meal today-Documented in Consultation on 04/16 by Ange Boo MD One possibility is G-tube placement if she dose not eat -Documented in Consultation on 04/16 by Ange Boo MD It may be reasonable consider adding an appetite stimulants such as remeron at a low dose-Documenetd in PN on 04/17 by Boris Gale MD Moderate Malnutrition (in acute illness) Energy Intake: <75% of estimated energy requirement for > 7 days Weight Loss: 1-2%/1 week; 5%/ 1 month; 7.5%/3 months Other: mild body fat loss; mild muscle mass loss; mild fluid accumulation; Severe Malnutrition (in acute illness) Energy Intake: < 50% of estimated energy requirement for > 5 days Weight Loss: >1-2%/1 week; >5%/1 month; >7.5%/3 months Other: moderate body fat loss; moderate muscle mass loss; moderate- severe fluid accumulation; measurably reduced management accounts manager strength Moderate Malnutrition (in chronic illness) Energy Intake: <75% of estimated energy requirement for >1 month Weight Loss: 5%/1 month; 7.5%/3 months; 10%/6 months; 20%/1 year Other: mild body fat loss; mild muscle mass loss; mild fluid accumulation Severe Malnutrition (in chronic illness) Energy Intake: <75% of estimated energy requirement for >1 month Weight Loss: >5%/1 month; >7.5%/3 months; >10%/6 months; >20%/1 year Other: severe body fat loss; severe muscle mass loss; severe fluid accumulation ; measurably reduced management accounts manager strength [employer] Adhesion Tester [employer] Winform Viewer (This form is maintained as a part of the permanent medical record) 2014 [employer]. All Rights Reserved [email or web address]
--- NOTE | 2019-04-20 08:55 | PQF ---
HANK EMMANUEL [place] MD [id number] [facility] A 3304 [id number] CLINICAL DOCUMENTATION CLARIFICATION FORM: POST DISCHARGE Addendum to original discharge summary date: ____ Late entry note date: __ DATE:04/20/2019 ATTN: BALA BECK MD Please exercise your independent, professional judgment in responding to the clarification form. Clinical indicators are provided on the bottom of this form for your review Please check appropriate box(s): [ ] Hyponatremia due to SIADH (Syndrome of Inappropriate Secretion of Antidiuretic Hormone) [ ] Hyponatremia not due to SIADH (Syndrome of Inappropriate Secretion of Antidiuretic Hormone) [ ] Other diagnosis [ ] Unable to determine In addition, please specify: Present on Admission (POA): [ ] Yes [ ] No [ ] Unable to determine CLINICAL INDICATORS - SIGNS / SYMPTOMS / LABS Generalized weakness-Documented in H&P on 04/15 by Brian Richardson MD Hyponatremia-possibility with the decreased P.O. intake. It could be related to hypovolemic hyponatremia-Documented in consultation on 04/16 by Bala Beck MD My concern is that this may be syndrome of inappropriate antidiuretic hormone secretion also. however that is diagnosis exclusion. She could also be hyponatremic secondary to her antipsychotic medication-Documented in consultation on 04/16 by Bala Beck MD Hyponatremia. Consider free water restriction at 1.25 L per 24 hours - Documented in PN on 04/17 by Bala Beck MD RISK FACTORS Hyponatremia-possibility with the decreased P.O. intake. It could be related to hypovolemic hyponatremia-Documented in consultation on 04/16 by Bala Beck MD TREATMENTS: We are being consulted now for her hyponatremia-Documented in consultation on by Bala Beck MD We will do empiric volume repletion on normal saline 75 ml /hour-Documented in consultation on 04/16 by Bala Beck MD The plan is simply to observe her, Gentle volume repletion no indication for any hypertonic saline at the present time. she is mentating well-Documented in consultation on 04/16 by Bala Beck MD [employer] Operator Helper [employer] Winform Viewer (This form is maintained as a part of the permanent medical record) 2014 [employer]. All Rights Reserved [email or web address]
[2019-04-20] MEDS ORDERED: Potassium Chloride 20 MEQ TAB PO SCH (09:00)
--- NOTE | 2019-04-20 11:21 | DIS ---
DATE OF ADMISSION: 04/15/2019 DATE OF DISCHARGE: 04/19/2019 ADMITTING DIAGNOSES: 1. Severe hypokalemia. 2. Generalized weakness. 3. Urinary tract infection. 4. Anorexia and weight loss with protein calorie malnutrition. 5. Hypertension. 6. Seizure disorder. 7. Bipolar disorder. 8. Status post fall. 9. Peripheral vascular disease. FINAL DIAGNOSES: 1. Severe hypokalemia, improved. 2. Hyponatremia, improved. 3. Severe protein calorie malnutrition, improving. 4. Seizure disorder. 5. Hypertension. 6. Hyperlipidemia. 7. Schizoaffective disorder. BRIEF SUMMARY OF HOSPITAL COURSE: Ms. Lozada is an 78-year-old [place] female, admitted because of severe hypokalemia. The patient had not been eating well, not taking fluids and was very weak according to . Also she is not ambulating well. The patient was found to have potassium of 2.6 on admission and also there is UTI. The patient was started on Rocephin and start on potassium replacement. Initially, potassium improved. Later it dropped again. A consulted was had with Nephrology and seen by Dr. Telles, who suggested to continue KCl replacement and added spironolactone, after which her potassium improved. He also given IV fluids of normal saline because of hyponatremia. Sodium was 130, it improved to 133. A GI consult was done in view of her protein calorie malnutrition and not eating well. The patient had an EGD done not too long weak. They suggested maybe some appetite stimulant and monitor. Family and patient declined PEG tube placement, so the patient's potassium slowly improved. She was initially started on Remeron, but patient became very sleepy, so it was discontinued. The patient is unable to ambulate. She was started on physical therapy and she is not able to take care of herself, so she was evaluated for the long-term placement, she was accepted at [facility]. In view of improvement, the patient is discharged to the long-term. At the time of discharge, she was stable, vital signs stable, lungs clear, heart sounds regular, abdomen is soft and nontender. Bowel sounds present. DISCHARGE MEDICATIONS: Include; 1. Lexapro 10 mg daily. 2. Pepcid 20 mg b.i.d. 3. Keppra 750 b.i.d. 4. Lisinopril 20 b.i.d. 5. Metoprolol succinate 100 mg daily. 6. Risperdal 0.25 at bedtime. 7. Crestor 20 mg at bedtime. 8. Amlodipine 5 mg daily. 9. Vitamin B12 at 1000 mcg a day. 10. Folic acid 1 mg daily. 11. Aspirin 81 mg b.i.d. 12. KCl 20 mEq daily. 13. Spironolactone 25 mg daily. The patient will continue physical therapy in the long-term and she will be followed up in 2 weeks. Job ID: [id number]
--- NOTE | 2019-04-27 09:43 | PQF ---
HANK EMMANUEL [place] MD [id number] [facility] A- [id number] CLINICAL DOCUMENTATION CLARIFICATION FORM: POST DISCHARGE Addendum to original discharge summary date: ____ Late entry note date: __ DATE: 04/27/2019 ATTN: BALA BECK MD Please exercise your independent, professional judgment in responding to the clarification form. Clinical indicators are provided on the bottom of this form for your review Please check appropriate box(s): kindly clarify the diagnosis occasioning on admission [ ] UTI [ x ] Hypokalemia [ x ] Hyponatremia [ ] Other diagnosis [ ] Unable to determine For continuity of documentation, please document condition throughout progress notes and discharge summary. Thank You. CLINICAL INDICATORS - SIGNS / SYMPTOMS / LABS In the ER the patient was evaluated and found to be severely hypokalemic with a potassium of 2.6 and evidence of urine tract infection-Documented in H&P on by Brian Richardson MD [id number] in H&P on 04/15 by Brian Richardson MD Hyponatremia-Documented in consultation on 04/16 by Bala Beck RISK FACTORS Anorexia and weight loss-Documented in H&P on 04/15 by Brian Richardson MD Generalized weakness-Documented in H&P on 04/15 by Brian Richardson MD TREATMENTS: The patient was given potassium as well as given one dose of Rocephin, given IV fluid bolus -Documented in H&P on 04/15 by Brian Richardson MD KCL IV piggyback 20 mEq x3 doses-Documented in H&P on 04/15 by Brian Richardson MD Rocephin 2 g IV piggyback-Documented in H&P on 04/15 by Brian Richardson MD SAP Manager Terminal Crystal Reports Winform Viewer(This form is maintained as a part of the permanent medical record) 2014 [employer]. All Rights Reserved [email or web address]
== END 2019-04-19 13:08 | DRG 640 ==
LOC: ERS 23:47 → SURG A 04-15 04:34
PROVIDERS: ADMIT Internal Medicine; ATTEND Emergency Medicine
DX: E87.6 Hypokalemia (principal); E43 Unspecified severe protein-calorie malnutrition; N39.0 Urinary tract infection, site not specified; E87.1 Hypo-osmolality and hyponatremia; I10 Essential (primary) hypertension; E78.5 Hyperlipidemia, unspecified; G40.909 Epilepsy, unspecified, not intractable, without status epilepticus; F20.9 Schizophrenia, unspecified; I25.10 Atherosclerotic heart disease of native coronary artery without angina pectoris; Z87.01 Personal history of pneumonia (recurrent); Z87.09 Personal history of other diseases of the respiratory system; R63.0 Anorexia; Z68.23 Body mass index [BMI] 23.0-23.9, adult; K21.9 Gastro-esophageal reflux disease without esophagitis; I73.9 Peripheral vascular disease, unspecified; T43.505A Adverse effect of unspecified antipsychotics and neuroleptics, initial encounter
CPT/HCPCS: 36415; 36416; 51701; 71045; 76770; 80048; 80053; 81003; 81015; 82533; 82550; 83735; 83930; 83935; 84443; 84550; 85025; 87086; 90471; 90662; 90670; 93005; 96361; 96365; 96366; 96368; A4353; G0008; G0009; J0696; J3480; J3490

== ENCOUNTER 2019-05-12 16:34 | Inpatient (IN) | payer MEDICARE, BC ==
[2019-05-12 17:15] LABS: Bacteria/HPF None Seen HPF (None Seen); Bilirubin Negative (Negative); Blood, Urine Negative (Negative); Clarity Extra Turbid (Clear); Glucose, Urine (Dipstick) Normal (Negative); Leukocyte Negative Leu/uL (Negative); Nitrite Negative (Negative); Protein, Urine (Dipstick) 100 mg/dL (Neg-Trace); Squamous Epithelial 0-3 HPF (0-3); Urobilinogen Normal mg/dL (Less than 2)
[2019-05-12 17:34] LABS: #Eosinphils 0.1 thou/uL (0.0-0.7); #Lymphocytes 1.1 thou/uL (1.20-3.40); #Monocytes 1.4 thou/uL (0.11-0.59); #Neutrophils 12.9 thou/uL (1.40-6.50); %Eosinophils 0.4 % (0.0-10.0); %Lymphocytes 7.1 % (21.0-51.0); %Monocytes 9.1 % (0.0-10.0); %Neutrophils 83.4 % (42.0-75.0); Hemoglobin 7.9 g/dL (12.0-16.0); Mean Corpuscular HGB CONC 32.8 g/dL (32.0-36.0); Mean Corpuscular Volume 66.9 fL (78.0-98.0); Mean Platelet Volume 11.8 fL (7.4-10.4); Platelet Count 343 thou/uL (130-400); RBC Distribution Width 22.4 % (11.5-14.5); Red Blood Cell (RBC) Count 3.58 mill/uL (4.20-5.40); White Blood Cell (WBC) Count 15.5 thou/uL (4.8-10.8)
--- NOTE | 2019-05-12 17:42 | CT ---
CT head noncontrast HISTORY: Altered mental status. COMPARISON: 03/21/2019. FINDINGS: There is no evidence of acute intracranial hemorrhage or infarct. Diffuse cortical atrophy and chronic ischemic small vessel disease are similar in appearance to the previous exam. There is no mass effect or shift of midline structures. Visualized paranasal sinuses remain well-aerated. IMPRESSION: Chronic-type findings are stable. No acute intracranial abnormalities are demonstrated.
--- NOTE | 2019-05-12 17:46 | RAD ---
Chest one view HISTORY: Pain. COMPARISON: 04/15/2019. FINDINGS: Cardiac silhouette is magnified by projection. Pulmonary vasculature is unremarkable. Media stinum is midline. No lobar consolidation or evidence of pneumothorax. IMPRESSION: No active cardiopulmonary abnormalities are demonstrated.
[2019-05-12 17:53] LABS: Anisocytosis MODERATE=16-30 cells (100X) (0-5/hpf); Burr Cells SLIGHT = 2-5 cells (100X) (0-1/hpf); Hypochromia SLIGHT = 6-15 cells (100X) (0-5/hpf); MDiff Complete? YES; Microcytosis SLIGHT = 6-15 cells (100X) (0-5/hpf); Ovalocytes SLIGHT = 2-5 cells (100X) (0-1/hpf); Platelet Morphology Comment Appears Adequate; Polychromasia SLIGHT = 2-3 cells (100X) (0-2/hpf); Schistocytes SLIGHT = 2-5 cells (100X) (0-1/hpf); Target Cells SLIGHT = 2-5 cells (100X) (0-1/hpf)
[2019-05-12 18:23] LABS: ALT (SGPT) 22 U/L (8-55); AST (SGOT) 20 U/L (5-34); Albumin 2.8 g/dL (3.4-4.8); Alkaline Phosphatase 82 U/L (40-110); Anion Gap 12 mmol/L (10-20); BUN (Urea Nitrogen) 26 mg/dL (9.8-20.1); Bilirubin, Total 0.5 mg/dL (0.2-1.2); CK (CPK) 20 U/L (29-168); Calc. Creatinine Clearance 0 mL/min (70-130); Calcium 8.5 mg/dL (7.8-10.44); Carbon Dioxide 20 mmol/L (23-31); Chloride 117 mmol/L (98-107); Estimated GFR-MDRD 31; Globulin 3.5 g/dL (2.4-3.5); Glucose 107 mg/dL (83-110); Potassium 4.1 mmol/L (3.5-5.1); Protein, Total 6.3 g/dL (6.0-8.3); Sodium 145 mmol/L (136-145)
[2019-05-12 18:46] LABS: CKMB 1.6 ng/mL (0-6.6)
[2019-05-12 18:52] LABS: Actual Bicarbonate (HCO3a) 14.3 mEq/L (22-28); Analyzer IN Cardio ER; Base Excess (BEa) -9.5 mEq/L (-2.0 to +3.0); Calcium, Ionized 1.17 mmol/L (1.12-1.30); Hemoglobin (Hb) 6.5 g/dL (12.0-16.0); O2 Tension (PaO2) 425.3 mmHg (> 60.0); Potassium - ABG Lab 3.65 mmol/L (3.70-5.30); pH, Arterial 7.41 (7.35-7.45)
[2019-05-12 18:53] LABS: CO2 Tension 23.2 mmHg (35.0-45.0)
[2019-05-12] MEDS ORDERED: Aspirin 300 MG Suppository ONE (19:17)
[2019-05-12] MEDS ORDERED: Sodium Chloride 0.9% 1,000 ML IV SCH (21:47)
[2019-05-12 22:30] LABS: Troponin I 0.095 ng/mL (< 0.028)
[2019-05-13 01:57] LABS: Troponin I 0.107 ng/mL (< 0.028)
[2019-05-13] MEDS ORDERED: Prevnar 13-Val Conj/PF 0.5 ML SYRINGE IM ONE (09:00)
[2019-05-13] MEDS ORDERED: FLU VACC TS2019-20(65YR UP)/PF 180 MCG/0.5 ML SYRINGE IM ONE (09:00)
[2019-05-13] MEDS ORDERED: PHENYLEPHRINE-NS 100 MCG/ML 10 ML SYRINGE ONE (09:01)
[2019-05-13] MEDS ORDERED: PROPOFOL 200 MG/20 ML VIAL ONE (09:01)
[2019-05-13] MEDS ORDERED: Labetalol HCl 100 MG/20 ML VIAL SLOW IVP PRN (10:47)
[2019-05-13] MEDS: Dextrose 5 %-0.45 % NaCl 1,000 ML IV SCH (10:57)
[2019-05-13] MEDS ORDERED: Ketamine 50 MG/ML (10ML VIAL) ONE (15:34)
[2019-05-13] MEDS ORDERED: CEFAZOLIN 2 GM in Premix Bag 1 BAG IVPB SCH (18:00)
--- NOTE | 2019-05-13 18:19 | OP ---
DATE OF PROCEDURE: 05/13/2019 PROCEDURE PERFORMED: Esophagogastroduodenoscopy with PEG tube placement. PREPROCEDURE DIAGNOSES: Anorexia, weight loss, dehydration, recurrent admissions for above, family and primary physician have requested PEG tube placement. They have refused PEG placement on previous admissions, but now decided they want to move down that route. ANESTHESIA: TIVA. Please note, Ancef 2 g IV was given for antibiotic prophylaxis. POSTPROCEDURE DIAGNOSES: 1. Mild esophagus inflammation related to inspissated mucus. No evidence of Rosemarie or malignancy. There is some reflux. 2. Normal stomach. 3. Normal duodenum. 4. PEG tube placement by Ponsky pull technique. PROCEDURE IN DETAIL: After the patient's informed of the risks, benefits, and possible complications of endoscopy including perforation, bleeding, reaction to medication, and aspiration, informed consent was obtained. The patient was brought to the endoscopy suite, where she was sedated in a gradual fashion. Once she was comfortable, bite block was placed inside the orifice. The endoscope was advanced to the esophagus, stomach, and second and third portions of the duodenum. There was poor oral hygiene. There was quite a bit of mucus and exudate in the esophagus. Probably this looked like the particles of pills or medicines. There was no overt Rosemarie. This was all to be washed away. There was some mild reflux esophagitis, underlying. There were no strictures. The stomach was entered and found to be normal in forward and retroflexed views. The duodenum was normal in the second and third portion. Adequate placement for PEG tube placement was identified by finger indentation and transillumination, and PEG tube was placed. Second-look revealed good placement. The scope was removed. The patient was brought to recovery room in stable condition. Job ID: [id number]
--- NOTE | 2019-05-13 22:56 | CON ---
DATE OF CONSULTATION: 05/13/2019 REASON FOR CONSULTATION: Failure to thrive, anorexia. HISTORY OF PRESENT ILLNESS: Ms. Lozada is an 78-year-old female with some bipolar disorder, maybe some dementia, prior history of seizures as well. She has been admitted several times in the past 6 months for failure to thrive and poor intake. She has had a fairly extensive evaluation with regard to her anatomical GI tract and there has been no signs of malignancy. She has had TSH and cortisol levels drawn. There has been some concern that maybe some of her seizure or bipolar medicines are actually flattening her affect and killing her appetite, but it is unclear to me if those medicines have been changed. Today, when she was readmitted again yesterday for the same, we were asked to see her about placing a feeding tube. Presently, the patient is without complaints. She denies abdominal pain. She denies any nausea or vomiting. She and her are amenable to placement of a feeding tube. In the past, she has been tried on Remeron and Marinol to see if that will help her appetite. Some thought this may be related to maybe some dementia. She has not tolerated the Remeron. It is unclear if she has had any psychiatric evaluation. She has had CAT scans, which have been negative as well. PAST MEDICAL HISTORY: Hypertension, seizure disorder, hyperlipidemia, schizoaffective disorder, mild CAD, respiratory failure in the past, aspiration pneumonia in the past, renal insufficiency in the past. MEDICATIONS: At home: 1. Aspirin. 2. Amlodipine. 3. Lexapro. 4. Famotidine. 5. Folic acid. 6. Keppra. 7. Lisinopril. 8. Metoprolol. 9. Risperdal. 10. Crestor. Medications here: Normodyne, IV fluid, D5 half-normal saline. ALLERGIES: NONE. FAMILY HISTORY: Noncontributory. SOCIAL HISTORY: She is . Lives with her . REVIEW OF SYSTEMS: The patient is not really unable to give a very good review. PHYSICAL EXAMINATION: VITAL SIGNS: Temperature is 98.6. She has been afebrile. Pulse 65, blood pressure 159/71. LUNGS: Clear. HEART: Regular rate and rhythm without clicks or murmurs. ABDOMEN: Soft, nontender. There is no rebound. There is no guarding. EXTREMITIES: No clubbing, cyanosis, or edema. LABORATORY DATA: Sodium 145, potassium 4.1, BUN and creatinine are 26 and 1.87. Liver function tests normal. Troponin 0.107, albumin 2.8, protein 6.3. B12 has been normal in the past. Prolactin has been slightly high. Cortisol has been normal. Folate has been normal. and replaced. Lipase has been normal. ASSESSMENT: Anorexia and failure to thrive. This may be related to her underlying psychiatric disorder or medications. She has had an extensive workup, otherwise has been negative. PLAN: 1. I will proceed with PEG tube as per patient family's wishes and Primary Care Physician's wishes. 2. We would recommend consideration of manipulation for medications or psychiatric evaluation and see if they can be of any further assistance in tweaking her medicines, maybe help her little bit better. Job ID: [id number]
[2019-05-14 05:10] LABS: ALT (SGPT) 11 U/L (8-55); AST (SGOT) 49 U/L (5-34); Albumin 3.1 g/dL (3.4-4.8); Alkaline Phosphatase 82 U/L (40-110); Anion Gap 14 mmol/L (10-20); BUN (Urea Nitrogen) 30 mg/dL (9.8-20.1); Bilirubin, Total 0.3 mg/dL (0.2-1.2); Calc. Creatinine Clearance 21 mL/min (70-130); Calcium 8.3 mg/dL (7.8-10.44); Carbon Dioxide 13 mmol/L (23-31); Chloride 117 mmol/L (98-107); Estimated GFR-MDRD 30; Globulin 2.9 g/dL (2.4-3.5); Glucose 70 mg/dL (83-110); Potassium 6.2 mmol/L (3.5-5.1); Sodium 138 mmol/L (136-145)
[2019-05-14] MEDS: Dextrose 5 %-0.45 % NaCl 1,000 ML IV SCH ×2 (06:38→11:25)
[2019-05-14 06:39] LABS: Band 15 % (5-11); Hemoglobin 7.7 g/dL (12.0-16.0); Hypochromia SLIGHT = 6-15 cells (100X) (0-5/hpf); Lymphocytes 6 % (21-51); MDiff Complete? YES; Mean Corpuscular HGB CONC 31.7 g/dL (32.0-36.0); Mean Corpuscular Hemoglobin 21.4 pg (27.0-31.0); Mean Corpuscular Volume 67.5 fL (78.0-98.0); Mean Platelet Volume 11.2 fL (7.4-10.4); Microcytosis SLIGHT = 6-15 cells (100X) (0-5/hpf); Monocytes 9 % (0-10); Neutrophil 70 % (42-75); Platelet Count 281 thou/uL (130-400); Platelet Morphology Comment Appears Adequate; Polychromasia SLIGHT = 2-3 cells (100X) (0-2/hpf); RBC Distribution Width 22.9 % (11.5-14.5); Red Blood Cell (RBC) Count 3.61 mill/uL (4.20-5.40); White Blood Cell (WBC) Count 12.4 thou/uL (4.8-10.8)
[2019-05-14] MEDS ORDERED: levETIRAcetam 500 mg/5 ml Oral Solution PER TUBE SCH (11:00)
[2019-05-14] MEDS ORDERED: Cyanocobalamin (Vitamin B-12) 1,000 MCG TAB PER TUBE SCH (11:00)
[2019-05-14] MEDS ORDERED: Folic Acid 1 MG TAB PER TUBE SCH (11:00)
[2019-05-14] MEDS ORDERED: Escitalopram Oxalate 10 mg Tablet PER TUBE SCH (11:00)
[2019-05-14] MEDS ORDERED: Amlodipine 5 MG TAB PER TUBE SCH (11:00)
[2019-05-14] MEDS ORDERED: Aspirin Chewable 81 MG TAB PER TUBE SCH (11:00)
--- NOTE | 2019-05-14 11:18 | PRG ---
DATE OF SERVICE: 05/14/2019 SUBJECTIVE: Ms. Lozada had a PEG tube placed yesterday. She is tolerating tube feeds. According to nurses, she is without complaints. OBJECTIVE: VITAL SIGNS: Temperature is 99, pulse 97, blood pressure 143/69. ABDOMEN: Soft, nontender. Bumper was loosened. LABORATORY DATA: White count 12.4 down from 15, hemoglobin 7.7, platelet count 281. Potassium is 6.2, BUN and creatinine are 30 and 1.96. AST 49, ALT normal. Glucose 70. ASSESSMENT AND PLAN: Status post percutaneous endoscopic gastrostomy tube would be functioning well. We would continue tube feeds. Clean percutaneous endoscopic gastrostomy tube site with soap and water daily. If I can be of any further assistance in the patient's care, please do not hesitate to contact me. Job ID: [id number]
[2019-05-14] MEDS: Famotidine 20 MG TAB PER TUBE SCH (11:19)
--- NOTE | 2019-05-14 17:49 | HP ---
REASON FOR ADMISSION/CHIEF COMPLAINT: Not eating well. Change in mental status. HISTORY OF PRESENT ILLNESS: Ms. Lozada is an 78-year-old female with past medical history of schizoaffective disorder, protein calorie malnutrition, has been recently in the hospital, was discharged. Since discharge, she has not been eating well at all, has been losing weight steadily, has no appetite. She was tried on Megace and Remeron. In spite of that, her appetite did not improve, so the family decided to have a PEG tube placed for feeding purposes. The patient became more lethargic and weak, unable to get up, so the patient was sent to the hospital. In the ER, the patient was evaluated and found to have acute kidney injury with generalized weakness. The patient was started on IV fluids and admitted for further management. The patient was also found to have anemia and elevated troponin I. She was admitted to telemetry just to rule out myocardial infarction. Does not have any chest pain. No nausea or vomiting. PAST MEDICAL HISTORY: 1. Hypertension. 2. Seizure disorder. 3. Schizoaffective disorder. 4. Hyperlipidemia. 5. Mild coronary artery disease. 6. History of respiratory failure. 7. Chronic anemia. 8. Status post GI workup. 9. Protein calorie malnutrition, severe. PAST SURGICAL HISTORY: Nothing contributory. CURRENT MEDICATIONS: The patient is supposed to be on: 1. Amlodipine 5 mg b.i.d. 2. Aspirin 81 mg daily. 3. Vitamin B12 1000 mcg daily. 4. Lexapro 10 mg daily. 5. Pepcid 20 b.i.d. 6. Folic acid 1 mg daily. 7. Keppra 750 b.i.d. 8. Lisinopril 20 mg b.i.d. 9. Metoprolol 100 mg daily. 10. KCl 20 mEq daily. 11. Risperdal 0.25 mg at bedtime. 12. Crestor 20 mg at bedtime. 13. Spironolactone 25 mg daily. ALLERGIES: NKDA. FAMILY HISTORY: Nothing contributory. SOCIAL HISTORY: The patient lives in the group home at [facility]. No history of smoking. No history of alcohol. REVIEW OF SYSTEMS: Unable to obtain. The patient is awake, not communicative. PHYSICAL EXAMINATION: GENERAL: The patient is awake, not very alert. VITAL SIGNS: Temperature 98, pulse 65, respirations 20, blood pressure ___. HEENT: Head is normocephalic, atraumatic. Pupils equal and reactive. Nasopharynx is pale and dry. NECK: Supple. No JVD. LUNGS: Bilateral air entry present. No rales. No rhonchi. HEART: S1 and S2 present. ABDOMEN: Soft. No distention. No tenderness. No organomegaly. Bowel sounds present. RECTAL: Deferred. CENTRAL NERVOUS SYSTEM: The patient is awake, not very alert. Motor system, power 3-4/5 in all extremities. Deep tendon reflexes 2+ bilaterally. Plantars downgoing. Sensory intact. SKIN: Turgor is decreased. LABORATORY DATA: CBC shows WBC 15, hemoglobin 7.9, hematocrit 23, platelets 343. Metabolic panel: sodium 145, potassium 4, chloride 104, CO2 of 20, BUN 23, creatinine 1.8, glucose 107. Troponin I 0.173. Urinalysis negative, showed some granular casts. DIAGNOSTIC STUDIES: Chest x-ray negative. EKG shows normal sinus rhythm, no acute ST-T wave changes seen. CT scan of the brain unremarkable. ASSESSMENT: 1. Severe protein calorie malnutrition, needs PEG tube placement. 2. Seizure disorder. 3. Acute metabolic encephalopathy. 4. Severe anemia. 5. Elevated troponin I, rule out myocardial infarction. 6. Hypertension. 7. Schizoaffective disorder. 8. Generalized weakness. PLAN: 1. Vital signs q.4 hours. 2. Activity as tolerated. 3. Allergies, NKDA. 4. IV fluids D5 half at 80 mL/h. 5. Diet, n.p.o. 6. GI consult. 7. We will resume the group home medications once the PEG tube is placed. Job ID: [id number] [facility]
[2019-05-14] MEDS: risperiDONE 0.25 MG TAB PER TUBE SCH (20:48)
[2019-05-14] MEDS: Metoprolol Tartrate 50 MG TAB PER TUBE SCH (20:48)
[2019-05-14] MEDS: Rosuvastatin 10 MG TAB PER TUBE SCH (20:48)
[2019-05-14] MEDS: levETIRAcetam 500 mg/5 ml Oral Solution PER TUBE SCH (20:48)
[2019-05-14] MEDS: Amlodipine 5 MG TAB PER TUBE SCH (20:49)
[2019-05-14] MEDS ORDERED: Lisinopril 20 MG TAB PER TUBE SCH (21:00)
[2019-05-15] MEDS: Dextrose 5 %-0.45 % NaCl 1,000 ML IV SCH ×2 (02:03→12:22)
[2019-05-15] MEDS ORDERED: Spironolactone 25 MG TAB PER TUBE SCH ×2 (08:00→18:15)
[2019-05-15] MEDS: levETIRAcetam 500 mg/5 ml Oral Solution PER TUBE SCH ×2 (09:22→22:13)
[2019-05-15] MEDS: Metoprolol Tartrate 50 MG TAB PER TUBE SCH ×2 (09:23→22:13)
[2019-05-15] MEDS: Cyanocobalamin (Vitamin B-12) 1,000 MCG TAB PER TUBE SCH (09:23)
[2019-05-15] MEDS: Amlodipine 5 MG TAB PER TUBE SCH ×2 (09:23→22:13)
[2019-05-15] MEDS: Folic Acid 1 MG TAB PER TUBE SCH (09:24)
[2019-05-15] MEDS: Aspirin Chewable 81 MG TAB PER TUBE SCH (09:24)
[2019-05-15] MEDS: Escitalopram Oxalate 10 mg Tablet PER TUBE SCH (09:24)
[2019-05-15 11:01] LABS: Anion Gap 13 mmol/L (10-20); BUN (Urea Nitrogen) 19 mg/dL (9.8-20.1); Calc. Creatinine Clearance 44 mL/min (70-130); Calcium 7.6 mg/dL (7.8-10.44); Carbon Dioxide 17 mmol/L (23-31); Chloride 116 mmol/L (98-107); Estimated GFR-MDRD 67; Glucose 76 mg/dL (83-110); Potassium 3.3 mmol/L (3.5-5.1); Sodium 143 mmol/L (136-145)
[2019-05-15 11:10] LABS: #Eosinphils 0.2 thou/uL (0.0-0.7); #Lymphocytes 2.5 thou/uL (1.20-3.40); #Monocytes 1.9 thou/uL (0.11-0.59); #Neutrophils 12.5 thou/uL (1.40-6.50); %Eosinophils 1.2 % (0.0-10.0); %Lymphocytes 14.6 % (21.0-51.0); %Monocytes 11.2 % (0.0-10.0); %Neutrophils 72.9 % (42.0-75.0); Band 35 % (5-11); Burr Cells SLIGHT = 2-5 cells (100X) (0-1/hpf); Eosinophils 1 % (0-10); Hemoglobin 8.1 g/dL (12.0-16.0); Lymphocytes 18 % (21-51); MDiff Complete? YES; Mean Corpuscular HGB CONC 30.5 g/dL (32.0-36.0); Mean Corpuscular Hemoglobin 20.6 pg (27.0-31.0); Mean Corpuscular Volume 67.7 fL (78.0-98.0); Mean Platelet Volume 5.3 fL (7.4-10.4); Monocytes 9 % (0-10); Myelocyte 1 % (0-0); Neutrophil 36 % (42-75); Platelet Count 248 thou/uL (130-400); Platelet Morphology Comment Appears Adequate; Polychromasia SLIGHT = 2-3 cells (100X) (0-2/hpf); RBC Distribution Width 22.9 % (11.5-14.5); Red Blood Cell (RBC) Count 3.91 mill/uL (4.20-5.40); Schistocytes SLIGHT = 2-5 cells (100X) (0-1/hpf); White Blood Cell (WBC) Count 17.1 thou/uL (4.8-10.8)
[2019-05-15] MEDS: Famotidine 20 MG TAB PER TUBE SCH (12:24)
[2019-05-15 15:43] VITALS: BMI 24.2
[2019-05-15] MEDS: risperiDONE 0.25 MG TAB PER TUBE SCH (22:13)
[2019-05-15] MEDS: Rosuvastatin 10 MG TAB PER TUBE SCH (22:13)
[2019-05-16 04:50] LABS: Anion Gap 11 mmol/L (10-20); BUN (Urea Nitrogen) 19 mg/dL (9.8-20.1); Calc. Creatinine Clearance 51 mL/min (70-130); Calcium 7.4 mg/dL (7.8-10.44); Carbon Dioxide 21 mmol/L (23-31); Chloride 112 mmol/L (98-107); Estimated GFR-MDRD 79; Glucose 87 mg/dL (83-110); Potassium 3.5 mmol/L (3.5-5.1); Sodium 140 mmol/L (136-145)
[2019-05-16] MEDS: levETIRAcetam 500 mg/5 ml Oral Solution PER TUBE SCH ×2 (09:42→20:51)
[2019-05-16] MEDS: Amlodipine 5 MG TAB PER TUBE SCH ×2 (09:42→20:51)
[2019-05-16] MEDS: Folic Acid 1 MG TAB PER TUBE SCH (09:42)
[2019-05-16] MEDS: Cyanocobalamin (Vitamin B-12) 1,000 MCG TAB PER TUBE SCH (09:44)
[2019-05-16] MEDS: Aspirin Chewable 81 MG TAB PER TUBE SCH (09:44)
[2019-05-16] MEDS: Escitalopram Oxalate 10 mg Tablet PER TUBE SCH (09:44)
[2019-05-16] MEDS: Spironolactone 25 MG TAB PER TUBE SCH (09:45)
[2019-05-16] MEDS: Metoprolol Tartrate 50 MG TAB PER TUBE SCH ×2 (09:45→20:51)
[2019-05-16] MEDS: Famotidine 20 MG TAB PER TUBE SCH (11:24)
[2019-05-16] MEDS ORDERED: Sodium Bicarbonate Tab 325 MG TAB PER TUBE PRN (13:30)
[2019-05-16] MEDS ORDERED: Pancrelipase DR 12000 1 CAP FS PRN (13:30)
[2019-05-16] MEDS: Rosuvastatin 10 MG TAB PER TUBE SCH (20:51)
[2019-05-16] MEDS: risperiDONE 0.25 MG TAB PER TUBE SCH (20:51)
[2019-05-17] MEDS: Folic Acid 1 MG TAB PER TUBE SCH (09:12)
[2019-05-17] MEDS: Cyanocobalamin (Vitamin B-12) 1,000 MCG TAB PER TUBE SCH (09:12)
[2019-05-17] MEDS: Metoprolol Tartrate 50 MG TAB PER TUBE SCH (09:12)
[2019-05-17] MEDS: Escitalopram Oxalate 10 mg Tablet PER TUBE SCH (09:13)
[2019-05-17] MEDS: Aspirin Chewable 81 MG TAB PER TUBE SCH (09:13)
[2019-05-17] MEDS: levETIRAcetam 500 mg/5 ml Oral Solution PER TUBE SCH (09:13)
[2019-05-17] MEDS: Amlodipine 5 MG TAB PER TUBE SCH (09:13)
[2019-05-17] MEDS: Spironolactone 25 MG TAB PER TUBE SCH (09:14)
[2019-05-17] MEDS: Famotidine 20 MG TAB PER TUBE SCH (12:03)
[2019-05-17 16:17] VITALS: BP 102/50; TEMP 98.4
--- NOTE | 2019-05-18 13:54 | DIS ---
DATE OF ADMISSION: 05/12/2019 DATE OF DISCHARGE: 05/17/2019 ADMITTING DIAGNOSES: 1. Severe protein calorie malnutrition, needs percutaneous endoscopic gastrostomy tube placement. 2. Seizure disorder. 3. Acute metabolic encephalopathy. 4. Severe anemia. 5. Elevated troponin, rule out myocardial infarction. 6. Hypertension. 7. Schizoaffective disorder. 8. Generalized weakness. FINAL DIAGNOSES: 1. Severe protein calorie malnutrition, status post percutaneous endoscopic gastrostomy tube placement. 2. Seizure disorder. 3. Acute metabolic encephalopathy, improved. 4. Severe anemia. 5. Elevated troponin. No evidence of acute myocardial infarction. 6. Hypertension. 7. Seizure disorder. 8. Generalized weakness. BRIEF SUMMARY OF HOSPITAL COURSE: Ms. Lozada is an 78-year-old Afro-Thai admitted because of severe protein-calorie malnutrition. The patient had not been eating well, not taking fluids, is getting dehydrated, losing weight. Family had decided to get a PEG tube placement. The patient was lethargic on admission, had acute kidney injury as well secondary to decreased intake, her BUN is 30, it came down to 19 with fluids. Creatinine also came down from 1.19 to 0.8. The patient was also anemic, but is chronic. Hemoglobin has stayed around 8 g, so a GI consult was done. The patient was seen by Dr. Gale and he got the consent from the family for PEG tube. The patient underwent PEG tube placement on the 05/13, later on started on tube feeding and slowly it was advanced. The patient became more alert and awake the next in 1 to 2 days. In view of improvement, the patient is being discharged home. PHYSICAL EXAMINATION: GENERAL: At the time of discharge, she was stable. VITAL SIGNS: Stable. LUNGS: Clear. HEART: Heart sounds regular. ABDOMEN: Soft and nontender. Bowel sounds present. DISCHARGE MEDICATIONS: Include: 1. Lexapro 10 mg daily. 2. Pepcid 20 b.i.d. 3. Keppra 750 b.i.d. 4. Risperdal 0.25 mg at bedtime. 5. Crestor 10 mg at bedtime. 6. Aspirin 81 mg daily. 7. Vitamin B12 1000 mcg. 8. Folic acid 1 mg daily. 9. KCl 20 mEq daily. 10. Spironolactone 25 mg daily. 11. Pancrelipase daily. 12. Metoprolol 50 mg b.i.d. 13. Crestor 10 mg at bedtime. [facility] Job ID: [id number] [facility]
--- NOTE | 2019-05-18 22:53 | PQF ---
SAP Stuffing Machine Operator Crystal Reports Winform Viewer HANK EMMANUEL VENKAT R MD [id number] [id number] CLINICAL DOCUMENTATION CLARIFICATION FORM: POST DISCHARGE Addendum to original discharge summary date: ____ Late entry note date: __ DATE: 05/18/19 ATTN:Brian Richardson Please exercise your independent, professional judgment in responding to the clarification form. Clinical indicators are provided on the bottom of this form for your review Can you please further clarify if NSTEMI is ruled in or ruled out? NSTEMI [ ] Ruled in diagnosis [ ] Continue to treat [ ] Resolved [ y ] Ruled out diagnosis [ ] Cannot rule out diagnosis [ ] Other diagnosis [ ] Unable to determine In addition, please specify: Present on Admission (POA): [y ] Yes [ ] No [ ] Unable to determine For continuity of documentation, please document condition throughout progress notes and discharge summary. Thank You. CLINICAL INDICATORS - SIGNS / SYMPTOMS / LABS ED provider pg.3- NSTEMI H and P pg.1- The patient was also found to have anemia and elevated troponin 1. H and P pg.1- She was admitted to telemetry to role out myocardial infarction Laboratory- Troponin 0.173H, 0.095H, 0.107H RISK FACTORS Hypertension- H and P pg.1 Seizure disorder- H and P pg.1 Hyperlipidemia- H and P pg.1 CAD- H and P pg.1 Protein calorie malnutrition, severe-H and P pg.1 SHAE- H and P pg.[address] 05/12 Aspirin 300mg- MAR IV Fluids- MAR Troponin Monitoring- Laboratory (This form is maintained as a part of the permanent medical record) 2014 [employer]. All Rights Reserved [email or web address]
== END 2019-05-17 16:37 | DRG 682 ==
LOC: ERS 16:34 → 2NO 21:49
PROVIDERS: ADMIT Internal Medicine; ATTEND Internal Medicine
PROC: 0DH63UZ Insertion of Feeding Device into Stomach, Percutaneous Approach (ICD-10-PCS; principal; 2019-05-13)
PROC: 3E0234Z Introduction of Serum, Toxoid and Vaccine into Muscle, Percutaneous Approach (ICD-10-PCS; 2019-05-13)
PROC: 3E02340 Introduction of Influenza Vaccine into Muscle, Percutaneous Approach (ICD-10-PCS; 2019-05-13)
DX: N17.9 Acute kidney failure, unspecified (principal); E43 Unspecified severe protein-calorie malnutrition; G93.41 Metabolic encephalopathy; F25.0 Schizoaffective disorder, bipolar type; E78.5 Hyperlipidemia, unspecified; K21.9 Gastro-esophageal reflux disease without esophagitis; G40.909 Epilepsy, unspecified, not intractable, without status epilepticus; I10 Essential (primary) hypertension; F41.9 Anxiety disorder, unspecified; D64.9 Anemia, unspecified; I25.10 Atherosclerotic heart disease of native coronary artery without angina pectoris; F32.9 Major depressive disorder, single episode, unspecified; Z79.82 Long term (current) use of aspirin; Z79.899 Other long term (current) drug therapy; Z23 Encounter for immunization
CPT/HCPCS: 36415; 36416; 51701; 70450; 71045; 80048; 80053; 81003; 81015; 82550; 82553; 82805; 83605; 84484; 85025; 87040; 87086; 90471; 90662; 90670; 93005; 96360; A4353; G0008; G0009; J0690; J1953; J2704; J3490

== ENCOUNTER 2019-09-04 15:48 | Emergency (ER) | payer MEDICARE, BC ==
--- NOTE | 2019-09-04 18:18 | ULT ---
EXAM: Left lower extremity venous Doppler HISTORY: Left arm pain. FINDINGS: Grayscale, color-flow, Doppler evaluation, spectral analysis of the left upper extremity venous struc tures is performed with 2-D imaging. Normal flow and lumen compressibility is present in the left internal jugular and axillary veins with normal flow seen in the left subclavian vein. There is normal luminal compressibility and flow seen in the left upper extremity brachial, radial, a nd ulnar veins. There is normal luminal compressibility and flow seen in the left upper extremity cephalic and basili c veins. IMPRESSION: No evidence of a deep vein thrombosis in the visualized deep venous structures left upper extremity.
--- NOTE | 2019-09-04 19:18 | RAD ---
Chest AP view INDICATION: Left arm swelling COMPARISON: There are 2019 FINDINGS: Lungs: The lungs are clear Cardiac silhouette: Stable mild cardiomegaly Pulmonary vasculature: Slightly more pronounced pulmonary vascular congestion. There is suspicious f or interstitial edema of the right lower lobe. Pleural spaces: There is a skinfold overlying the lateral aspect of the left hemithorax. No definite pneumothorax is evident. Upper abdomen: No abnormality seen. Osseous structures: No acute osseous abnormality. Additional findings: None. IMPRESSION: Mild cardiomegaly with slightly more pronounced pulmonary vascular congestion and right lower lobe in terstitial edema suspicious for mild CHF. Skinfold overlying the lateral aspect of the left hemithorax without evidence of a definite pneumotho rax.
== END 2019-09-04 20:22 | disposition home or self-care (01) ==
LOC: ERS 15:48
DX: M79.89 Other specified soft tissue disorders (principal); I10 Essential (primary) hypertension; E78.5 Hyperlipidemia, unspecified; K21.9 Gastro-esophageal reflux disease without esophagitis; M19.90 Unspecified osteoarthritis, unspecified site; F32.9 Major depressive disorder, single episode, unspecified; F20.9 Schizophrenia, unspecified; F41.9 Anxiety disorder, unspecified; Z79.82 Long term (current) use of aspirin; Z79.899 Other long term (current) drug therapy
CPT/HCPCS: 71045

== ENCOUNTER 2019-10-19 18:40 | Inpatient (IN) | payer MEDICARE, BC, OTHER ==
[~2019-10-19 18:40] MED LIST changes: -ISOVUE-370 76%-LOCM 1 ML ONE; +Iopamidol-370 76% 500 ML 1 ML ONE
[2019-10-19 19:49] LABS: #Eosinphils 0.1 thou/uL (0.0-0.7); #Lymphocytes 1.4 thou/uL (1.20-3.40); #Monocytes 1.1 thou/uL (0.11-0.59); #Neutrophils 5.7 thou/uL (1.40-6.50); %Eosinophils 1.7 % (0.0-10.0); %Lymphocytes 16.4 % (21.0-51.0); %Monocytes 13.5 % (0.0-10.0); %Neutrophils 68.4 % (42.0-75.0); Hemoglobin 5.3 g/dL (12.0-16.0); Mean Corpuscular HGB CONC 29.1 g/dL (32.0-36.0); Mean Corpuscular Hemoglobin 17.9 pg (27.0-31.0); Mean Corpuscular Volume 61.7 fL (78.0-98.0); Mean Platelet Volume 8.9 fL (7.4-10.4); Platelet Count 569 thou/uL (130-400); Red Blood Cell (RBC) Count 2.95 mill/uL (4.20-5.40); White Blood Cell (WBC) Count 8.4 thou/uL (4.8-10.8)
[2019-10-19 19:51] LABS: PTT 26.9 sec (22.9-36.1); Prothrombin Time 13.4 sec (12.0-14.7)
[2019-10-19 20:04] LABS: ALT (SGPT) 24 U/L (8-55); AST (SGOT) 29 U/L (5-34); Albumin 2.9 g/dL (3.4-4.8); Alkaline Phosphatase 132 U/L (40-110); Anion Gap 12 mmol/L (10-20); BUN (Urea Nitrogen) 26 mg/dL (9.8-20.1); Bilirubin, Total 0.3 mg/dL (0.2-1.2); Calc. Creatinine Clearance 0 mL/min (70-130); Calcium 8.6 mg/dL (7.8-10.44); Carbon Dioxide 26 mmol/L (23-31); Chloride 100 mmol/L (98-107); Estimated GFR-MDRD Greater than 90; Globulin 4.1 g/dL (2.4-3.5); Glucose 108 mg/dL (83-110); Potassium 4.8 mmol/L (3.5-5.1); Sodium 133 mmol/L (136-145)
[2019-10-19 20:07] LABS: Anisocytosis SLIGHT = 6-15 cells (100X) (0-5/hpf); Hypochromia MODERATE=16-30 cells (100X) (0-5/hpf); MDiff Complete? YES; Microcytosis MODERATE=15-30 cells (100X) (0-5/hpf); Platelet Morphology Comment Appears Increased; Polychromasia MODERATE = 3-4 cells (100X) (0-2/hpf); Reflex for Review?? NO; Schistocytes SLIGHT = 2-5 cells (100X) (0-1/hpf); Target Cells SLIGHT = 2-5 cells (100X) (0-1/hpf); Tear Drops SLIGHT = 2-5 cells (100X) (0-1/hpf)
[2019-10-19 21:31] LABS: Reticulocyte Count 3.8 % (0.5-1.5)
[2019-10-19 21:54] LABS: Iron 9 ug/dL (50-170); Iron Binding Capacity, Total 308 mcg/dL (265-497)
[2019-10-19 22:22] LABS: Ferritin 41.65 ng/mL (10-291)
[2019-10-19 22:33] LABS: Vitamin B12 Greater than 2000 pg/mL (211-911)
[2019-10-19] MEDS ORDERED: Acetaminophen 650 MG Suppository PR PRN (22:33)
[2019-10-19] MEDS ORDERED: Acetaminophen 325 MG TAB PO PRN (22:33)
[2019-10-19] MEDS ORDERED: Pantoprazole 80 MG in Sodium Chloride 0.9% 100 ML IVP SCH (23:00)
[2019-10-19 23:26] VITALS: BMI 24.5
--- NOTE | 2019-10-20 00:19 | HP ---
TIME OF ASSESSMENT: 2200 hours. PRIMARY CARE PHYSICIAN: [facility]. REASON FOR ADMISSION: Severe anemia. HISTORY OF PRESENT ILLNESS: Ms. Lozada is an 79-year-old woman who was brought into the emergency department from [place] due to abnormal laboratory studies showing severe anemia with a hemoglobin of 4.5. The patient is known to be nonverbal at baseline and therefore difficulty obtaining any history. She was last admitted to the hospital in April 2019 with severe malnutrition requiring PEG tube placement. She was anemic at that time as well. However, her hemoglobin was 8 and not as low as today. An EGD with PEG tube placement was done on May 13, 2019, and during the procedure, she was noted to have mild esophagus inflammation related to inspissated mucus and some reflux. The PEG tube was placed successfully. She was started on tube feedings and eventually discharged. In the emergency department, she had repeat laboratory studies, which showed a hemoglobin of 5.3, hematocrit 18.2, white count 8.4, platelets 569, neutrophils 68.4%. Sodium 133. BUN 26, creatinine 0.64, GFR greater than 90. Glucose 108, calcium 8.6. LFTs unremarkable. Albumin 2.9. She did not have any imaging studies done in the emergency department. Two units of packed red blood cells were ordered, and she is currently undergoing transfusion. PAST MEDICAL HISTORY: 1. Hyperlipidemia. 2. GERD. 3. Seizures. 4. Hypertension. 5. Arthritis. 6. Schizoaffective disorder. PAST SURGICAL HISTORY: PEG tube placement, April 2019. SOCIAL HISTORY: The patient is nonverbal at baseline. Lives in [place]. No tobacco use or alcohol consumption. FAMILY HISTORY: Noncontributory. ALLERGIES: NO KNOWN DRUG ALLERGIES. CURRENT MEDICATIONS: 1. Aspirin. 2. Atorvastatin. 3. Vitamin B12. 4. Digoxin. 5. Famotidine. 6. Keppra. 7. Lexapro. 8. Multivitamin. 9. Potassium. 10. Vitamin C. 11. Zinc. 12. Tylenol with Codeine. PHYSICAL EXAMINATION: GENERAL: The patient is found lying in bed. Nonverbal. Does not appear to be in any severe distress. Reportedly, she is at her baseline, though she has known dementia and schizoaffective disorder. VITAL SIGNS: Temperature 99.6, heart rate 107, blood pressure 115/61, respirations 25, O2 saturation 100% on room air. HEENT: Normocephalic and atraumatic. Pupils are equal, round, and reactive to light. Sclerae without icterus. Oropharynx is clear. NECK: Supple. LUNGS: Clear bilaterally. No tachypnea. Normal chest expansion. CARDIAC: Regular rate and rhythm. No murmurs. ABDOMEN: Firm, distention to the lower abdomen with some apparent discomfort on palpation. Denies discomfort in the epigastric region. PEG tube in place with no bleeding or discharge noted. EXTREMITIES: Pulses are equal bilaterally. No edema. Both feet in slightly flexed position and firm. Does not move her legs. NEUROLOGIC: Awake and alert, does not follow commands, but did answer when asked if she had discomfort upon palpation of the suprapubic region. Denied pain in the epigastric area on palpation, and when asked if anything else was hurting her, she stated "I will let you know." INVESTIGATIONS: As mentioned above in HPI. Of note, she did have a guaiac done, which was positive for occult blood. IMPRESSION AND PLAN: Ms. Lozada is an 79-year-old woman who is being admitted for management of the followin. Severe anemia. Hemoglobin reportedly 4.5 on arrival to the emergency department and was 5.3. Unclear where she had laboratory studies done. She is currently receiving packed red blood cells. We will monitor hemoglobin and hematocrit. I will start her on a pantoprazole drip. Her stool was positive for occult blood. Consultation placed to Gastroenterology. Given the lower abdominal firmness with some apparent discomfort on palpation, we will obtain a CT abdomen and pelvis with contrast given normal renal function. 2. Suprapubic firmness/discomfort. Pad is currently dry. Emergency department nurse unsure when the last time was that she voided. We will request a bladder scan to assess for urinary retention and place a [place] if needed. We will request for UA and urine culture. 3. Hypertension. Monitor blood pressure. Reconcile home medications once verified. 4. Seizure disorder. We will reconcile Keppra once dose is verified. 5. Hyperlipidemia. We will reconcile home medications once verified. 6. Deep venous thrombosis prophylaxis with mechanical sequential compression devices. Pharmaco prophylaxis contraindicated given the concern for bleeding. 7. Unable to verify code status or medical power of managed care nurse at this time given the patient is minimally verbal at present. Case was discussed with Dr. Parrish who agrees with plan of care as described above. Job ID: [id number]
[2019-10-20 00:52] LABS: Hemoglobin 7.1 g/dL (12.0-16.0)
[2019-10-20 05:50] LABS: #Basophils 0.1 thou/uL (0.0-0.2); #Eosinphils 0.2 thou/uL (0.0-0.7); #Lymphocytes 1.3 thou/uL (1.20-3.40); #Monocytes 1.5 thou/uL (0.11-0.59); #Neutrophils 7.4 thou/uL (1.40-6.50); %Basophils 0.5 % (0.0-1.0); %Eosinophils 1.5 % (0.0-10.0); %Lymphocytes 12.3 % (21.0-51.0); %Monocytes 14.1 % (0.0-10.0); %Neutrophils 71.6 % (42.0-75.0); Hemoglobin 8.4 g/dL (12.0-16.0); Mean Corpuscular HGB CONC 30.4 g/dL (32.0-36.0); Mean Corpuscular Hemoglobin 22.1 pg (27.0-31.0); Mean Platelet Volume 8.3 fL (7.4-10.4); Platelet Count 462 thou/uL (130-400); RBC Distribution Width 25.2 % (11.5-14.5); Red Blood Cell (RBC) Count 3.79 mill/uL (4.20-5.40); White Blood Cell (WBC) Count 10.3 thou/uL (4.8-10.8)
[2019-10-20 05:51] LABS: Anion Gap 11 mmol/L (10-20); BUN (Urea Nitrogen) 23 mg/dL (9.8-20.1); Calc. Creatinine Clearance 74 mL/min (70-130); Calcium 8.5 mg/dL (7.8-10.44); Carbon Dioxide 24 mmol/L (23-31); Chloride 101 mmol/L (98-107); Estimated GFR-MDRD Greater than 90; Glucose 98 mg/dL (83-110); Potassium 4.4 mmol/L (3.5-5.1); Sodium 132 mmol/L (136-145)
--- NOTE | 2019-10-20 07:54 | CT ---
PRELIMINARY REPORT/[facility]/EMERGENCY AFTER HOURS PROCEDURE This report was discussed with Nagi Lu RN by Sara lambert on Oct 20, 2019 01:35:00 CDT. Addendum electronically signed by Sara lambert on October 20, 2019 1:38:39 AM CDT EXAM: CT Abdomen with Intravenous Contrast. CLINICAL HISTORY: Severe anemia, abd pain rule out hematoma TECHNIQUE: Axial CT images of the abdomen performed with intravenous contrast. Coronal and sagittal reformatted images are provided. CONTRAST: With; ISOVUE 370,100mL intravenous. No oral contrast. COMPARISON: None provided. FINDINGS: Lower thorax: Hazy opacity in the lung bases likely represent subsegmental atelectasis. Mild cardiomegaly. Mitral annular calcifications. Coronary artery calcifications. ABDOMEN: Liver: Unremarkable. No mass. Gallbladder and bile ducts: There are calcified stones in the region of the gallbladder neck. No obvious gallbladder inflammatio n. No ductal dilation. Pancreas: Unremarkable. No ductal dilation. Spleen: Unremarkable. Adrenals: No mass. Kidneys and ureters: The kidneys enhance symmetrically. There is renal cortical atrophy. No hydronephrosis. No solid mas s. Stomach and bowel: There is a 4.1 x 4.2 x 3.2 cm masslike mucosal thickening at the antimesenteric side of the descendin g colon (axial image 31 and coronal image 89) with upstream dilation with stool and relative downstream decompression. There is ill-defined fat stranding around the area of the lesion. No abno rmally dilated bowel loops to suggest obstruction. Scattered air-fluid levels within the small bowel loops. There is a PEG tube within the distal stomach. Peritoneum: No free fluid. No free air. No abscess. Lymph nodes: No lymphadenopathy. Abdominal wall and soft tissues: Unremarkable. Bones: No acute osseous abnormality. Convex left spinal curvature which may be positional. IMPRESSION: 1. Masslike mucosal thickening in the descending colon on the left with what appears to be partial o bstruction. Recommend further evaluation with direct visualization if not already known. 2. Cholelithiasis. 3. No hematoma, as required. 4. Cardiomegaly with coronary artery disease. ELECTRONICALLY SIGNED BY: Canelo Rene M.D. Oct 20, 2019 1:31:49 AM CDT This report is intended for review by the ordering physician only, in accordance of law. If you recei ve this report in error, please call [facility] at [phone]. FINAL REPORT EMERGENCY AFTER HOURS CT ABDOMEN: I agree with the preliminary report given by Dr. Canelo Rene of [facility]. Transcribed Date/Time: 10/20/2019 9:06 AM
--- NOTE | 2019-10-20 07:55 | RAD ---
EXAM: Portable chest PROVIDED CLINICAL HISTORY: Anemia COMPARISON: 09/04/2019 FINDINGS: Cardiac and mediastinal silhouette is rotated, grossly similar to prior. No focal consolidation, pleu ral fluid or pneumothorax evident. IMPRESSION: No evidence for an acute cardiopulmonary process.
[2019-10-20] MEDS ORDERED: GoLYTELY 4,000 ml Bottle PER TUBE SCH (12:30)
[2019-10-20 12:44] LABS: Hemoglobin 9.1 g/dL (12.0-16.0)
--- NOTE | 2019-10-20 13:38 | PDOC.HOSPP ---
- Subjective Encounter Date: 10/20/19 Encounter Time: 13:00 non-verbal Subjective: Patient seen and examined for anemia. No acute GI blood loss reported per RN. No information available from the patient due to current cognitive status. - Objective Vital Signs & Weight: Vital Signs (12 hours) Temp Pulse Resp BP Pulse Ox 10/20/19 11:43 98.9 F 93 16 146/67 H 99 10/20/19 08:00 98.4 F 91 14 116/57 L 97 10/20/19 04:00 98.7 F 97 16 140/65 98 Weight Admit Weight 147 lb 1.6 oz Weight 147 lb 1.6 oz I&O: 10/19/19 10/20/19 10/21/19 06:59 06:59 06:59 Intake Total 0 Balance 0 Result Diagrams: 10/20/19 12:27 10/20/19 05:07 Radiology Reviewed by me: Yes (Chest X-ray no infiltrate) EKG Reviewed by me: Yes (Sinus rhythm) Hospitalist ROS - Review of Systems ROS unobtainable: due to mental status - Medication Medications: Active Medications Generic Name Dose Route Start Last Admin Trade Name Freq PRN Reason Stop Dose Admin Pantoprazole Sodium 80 mg/ 100 mls @ 10 mls/hr 10/19/19 23:00 10/20/19 05:07 Sodium Chloride IVP 100 mls INF ARDEN Administration - Exam General Appearance: ill appearing Neck: supple, symmetric, no JVD, no lymphadenopathy Heart: RRR, no gallops, no rubs, normal peripheral pulses Respiratory: no rales, no ronchi, normal chest expansion Gastrointestinal: soft, non-tender, non-distended, normal bowel sounds, no guarding, no rigidity Gastrointestinal - other findings: PEG tube Extremities: no cyanosis, no clubbing, no edema Psychiatric: not oriented Psychiatric - other findings: Cannot assess due to current mentation Hosp A/P - Plan DVT proph w/SCDs (No anticoagulants due to anemia) Severe symptomatic anemia suspected due to chronic GI blood loss Generalized weakness Severe protein calorie malnutrition status post PEG tube Hypertension Seizure disorder Hyperlipidemia Hypertension GERD Schizoaffective disorder Plan: Continue monitoring hemoglobin and hematocrit Patient received 2 units of PRBC GI input appreciated Patient is scheduled for EGD and colonoscopy in a.m. Add add gentle IV hydration Continue IV Protonix drip Recheck labs in a.m. Resume home medications Resume PEG tube feedings after colonoscopy Plan of care was discussed with the spouse over the phone. CODE STATUS verified as full code per spouse.
[2019-10-20] MEDS ORDERED: Pancrelipase DR 12,000 1 CAP FS PRN (14:11)
[2019-10-20] MEDS ORDERED: Acetaminophen/Codeine 30-300mg Tablet PER TUBE PRN (14:11)
--- NOTE | 2019-10-20 14:16 | CON ---
DATE OF CONSULTATION: 10/20/2019 REASON FOR CONSULTATION: Severe utqll-nz-[id number] anemia. HISTORY OF PRESENT ILLNESS: Tl Lozada is an 79-year-old woman with a history of schizoaffective disorder and seizure disorder. She is nonverbal at baseline and noncommunicative. She lives at [place]. History is obtained from medical records as well as speaking with her over the phone. The patient was sent from her nursing facility last night for admission secondary to severe anemia. Her hemoglobin was evidently found to be 4.5 and on arrival here it was 5.3, and she has received 2 units RBC transfusion, with great response, now up to 8.4. This is in the context of normal INR, normal platelets, and evidently no reported overt bleeding from anywhere. I see that an FOBT check was checked and was positive, but I am not seeing any documentation of melena or hematochezia, and per nursing staff, there has been no overt bleeding since her arrival last night. As the patient is nonverbal, there is no complaint of any other symptoms, such as abdominal pain. She has evidently been tolerating her tube feeds with no nausea or vomiting. Looking back, she did have some prior workup for anemia in recent months. It appears that her baseline hemoglobin is around 8 to 10. On 03/24/2019, she had an EGD and a colonoscopy. The EGD at that time was normal. Colonoscopy showed some oozing from internal and external hemorrhoids, 2 small polyps removed, and also an area of colitis with multiple ulcerations, erythema, and edema from 30 to 35 cm. The appearance seemed most consistent with ischemic colitis, though colonic biopsies were indeterminate and really unhelpful. Subsequent to that, the patient underwent PEG tube placement, which was uncomplicated on 05/13/2019 just with the finding of mild reflux esophagitis at that time. On admission here, she had a CT of the abdomen and pelvis. This shows that her PEG tube is in place. It also shows a 4.1 x 4.2 x 3.2 cm mass like mucosal thickening on the antimesenteric side of the descending colon, with narrowing in the area, upstream colonic dilation, and relative decompression distal to that area. REVIEW OF SYSTEMS: Unable to obtain due to the patient's baseline noncommunicative mental status. PAST MEDICAL HISTORY: 1. Hyperlipidemia. 2. GERD. 3. Seizure disorder. 4. Hypertension. 5. Arthritis. 6. Schizoaffective disorder. 7. Probable ischemic colitis, seen in 03/2019 colonoscopy. 8. PEG tube placement in 04/2019. SOCIAL HISTORY: The patient is nonverbal at baseline. She lives at [place]. No tobacco or alcohol use. She is . I spoke with her , Jerman, on the phone today. FAMILY HISTORY: Noncontributory. ALLERGIES: NO KNOWN DRUG ALLERGIES. OUTPATIENT MEDICATIONS: 1. Aspirin. 2. Atorvastatin. 3. Vitamin B12. 4. Digoxin. 5. Famotidine. 6. Keppra. 7. Lexapro. 8. Multivitamin. 9. Potassium. 10. Vitamin C. 11. Zinc. 12. Tylenol with Codeine. PHYSICAL EXAMINATION: VITAL SIGNS: Temperature 98.9, pulse 93, blood pressure 146/67, and 99% oxygen saturation on room air. GENERAL: Chronically ill-appearing, nonverbal, in no distress, reacting to internal stimuli. SKIN: No jaundice. No rash visible or palpable from the front. I did not turn the patient. EYES: No scleral icterus. ENT: Mucous membranes moist. LYMPHATICS: No submandibular lymphadenopathy. THYROID: Nontender to palpation. HEART: Regular rate and rhythm. LUNGS: Clear to auscultation bilaterally. ABDOMEN: Bowel sounds are present. The abdomen is soft. I am not eliciting any tenderness to palpation. The PEG tube is in place in the left upper quadrant with external bumper at 2.5 cm. PEG site looks good. No drainage. Does not appear too tight. EXTREMITIES: No peripheral edema. NEUROLOGIC: The patient does not follow commands or respond to questioning. LABORATORY STUDIES: Initial hemoglobin 5.3 and up to 8.4 after 2 units RBC transfusion, WBC 10.3, and platelets 462. Sodium 132, potassium 4.4, BUN 23, and creatinine 0.63. INR 1.0. Folic acid 18 and vitamin B12 greater than 2000. Troponin 0.01. Ferritin 41, iron 9, and TIBC 308. Normal LFTs with total bilirubin 0.3, alkaline phosphatase 132, AST 29, ALT 24, and albumin 2.9. FOBT is positive. IMAGING STUDIES: Chest x-ray shows no acute processes. CT of the abdomen and pelvis shows gallstones, but no biliary dilation. There is a 4.1 x 4.2 x 3.2 cm mass like mucosal thickening in the antimesenteric side of the descending colon, with some upstream dilation and relative decompression downstream. PEG tube is in place. ASSESSMENT AND PLAN: 1. Jldyd-yz-jqnikns iron-deficiency anemia. 2. Heme-positive stool. 3. Abnormal CT scan, showing mucosal thickening on the antimesenteric side of the descending colon. 4. Recent percutaneous endoscopic gastrostomy tube placement. The patient does indeed have chronic iron-deficiency anemia, but now presents with hemoglobin significantly lower than baseline. She has responded well to transfusion, with no overt bleeding noted. Particularly given the CT findings, my suspicion is that she has developed chronic ischemic colitis in the area of the descending colon, which was previously visualized by Dr. Heredia, and had multiple areas of ulceration back in March. Another possibility would be development of an ulcer associated with her PEG tube. She is clinically stable. If the worsening anemia is indeed a manifestation of worsening chronic ischemic colitis, particularly if she is indeed developing some narrowing and partial obstruction in the area, then the only definitive treatment would be surgical. Obviously, she is not the best surgical candidate. After speaking with the patient's , I do think it would be worthwhile to perform EGD and colonoscopy tomorrow, examine the internal PEG bumper site and make sure there is no complication there, also re-examine this area in the descending/sigmoid colon, rule out other new lesions. Depending on findings, we may need to request a surgical opinion. Thank you for the consultation. Please call anytime with questions or concerns. Job ID: [id number]
[2019-10-20 17:07] LABS: SARS-CoV-2 MS2 Positive; SARS-CoV-2 N Gene Negative; SARS-CoV-2 S Gene Negative; SARS-CoV-2 by NAA Not Detected (NotDetected); SARS-CoV-2 orf1ab Negative
[2019-10-20] MEDS: Digoxin 0.125 MG TAB PER TUBE SCH (17:23)
[2019-10-20] MEDS: Dextrose 5 % And 0.9 % NaCl 1,000 ML IV SCH (17:23)
[2019-10-20] MEDS: Escitalopram Oxalate 10 mg Tablet PO SCH (17:25)
[2019-10-20] MEDS: Atorvastatin Calcium 40 MG TAB PER TUBE SCH (21:49)
[2019-10-20] MEDS: Famotidine 20 MG TAB PER TUBE SCH (21:49)
[2019-10-20] MEDS: levETIRAcetam 500 mg/5 ml Oral Solution PER TUBE SCH (21:49)
[2019-10-21] MEDS: Dextrose 5 % And 0.9 % NaCl 1,000 ML IV SCH ×3 (05:48→16:10)
[2019-10-21] MEDS ORDERED: PROPOFOL 200 MG/20 ML VIAL ONE (09:19)
[2019-10-21] MEDS ORDERED: Lidocaine 1% PF 5 ML VIAL ONE (09:19)
[2019-10-21] MEDS: Pantoprazole 80 MG in Sodium Chloride 0.9% 100 ML IVPB SCH ×2 (10:23→19:36)
[2019-10-21] MEDS: Famotidine 20 MG TAB PER TUBE SCH (13:43)
[2019-10-21] MEDS: Multivit, Therapeutic 1 TAB PER TUBE SCH (13:43)
[2019-10-21] MEDS: Folic Acid 1 MG TAB PER TUBE SCH (13:43)
[2019-10-21] MEDS: Ascorbic Acid 500 mg Chewable Tablet PER TUBE SCH (13:43)
[2019-10-21] MEDS: Cyanocobalamin (Vitamin B-12) 1,000 MCG TAB PO SCH (13:43)
[2019-10-21] MEDS: Zinc Sulfate 220 MG CAP PER TUBE SCH (13:44)
[2019-10-21] MEDS ORDERED: Ketamine 50 MG/ML (10ML VIAL) ONE (13:56)
--- NOTE | 2019-10-21 14:33 | PDOC.HOSPP ---
- Subjective Encounter Date: 10/21/19 Encounter Time: 09:00 Subjective: Patient seen and examined for anemia. No overnight issues. Discussed with primary nurse. - Objective Vital Signs & Weight: Vital Signs (12 hours) Temp Pulse Resp BP Pulse Ox 10/21/19 11:38 99.1 F 91 18 177/73 H 99 10/21/19 07:56 99.2 F 94 18 153/67 H 94 L 10/21/19 03:20 98.1 F 95 18 137/63 96 Weight Admit Weight 147 lb 1.6 oz Weight 147 lb 1.6 oz I&O: 10/20/19 10/21/19 10/22/19 06:59 06:59 06:59 Intake Total 0 Balance 0 Result Diagrams: 10/20/19 12:27 10/20/19 05:07 Additional Labs: Laboratory Tests 10/19/19 10/19/19 10/19/19 21:20 21:20 21:20 Iron 9 L TIBC 308 Ferritin 41.65 Vitamin B12 Greater than 2000 H Folate 18.00 EKG Reviewed by me: Yes (Sinus rhythm on telemetry monitoring) Hospitalist ROS - Review of Systems ROS unobtainable: due to mental status - Medication Medications: Active Medications Generic Name Dose Route Start Last Admin Trade Name Freq PRN Reason Stop Dose Admin Ascorbic Acid 500 mg 10/21/19 09:00 10/21/19 13:43 Vitamin C PER TUBE Not Given DAILY AR[facility] Atorvastatin Calcium 40 mg 10/20/19 21:00 10/20/19 21:49 Lipitor PER TUBE 40 mg HS ARDEN Administration Cyanocobalamin 1,000 mcg 10/21/19 09:00 10/21/19 13:43 Vitamin B-12 PO Not Given DAILY ARDEN Digoxin 0.125 mg 10/20/19 15:00 10/20/19 17:23 Lanoxin PER TUBE 0.125 mg 1500 ARDEN Administration Escitalopram Oxalate 10 mg 10/20/19 15:00 10/20/19 17:25 Lexapro PO 10 mg 1500 ARDEN Administration Famotidine 20 mg 10/20/19 21:00 10/21/19 13:43 Pepcid PER TUBE Not Given BID ARDEN Folic Acid 1 mg 10/21/19 09:00 10/21/19 13:43 Folvite PER TUBE Not Given DAILY [facility] Dextrose/Sodium Chloride 1,000 mls @ 75 mls/hr 10/20/19 14:15 10/21/19 05:48 D5 0.9% Ns IV 1,000 mls .[id number] ARDEN Administration Pantoprazole Sodium 80 mg/ 100 mls @ 10 mls/hr 10/20/19 18:15 10/21/19 10:23 Sodium Chloride IVPB 100 mls INF ARDEN Administration Levetiracetam 750 mg 10/20/19 21:00 10/20/19 21:49 Keppra Oral Solution PER TUBE 750 mg BID ARDEN Administration Multivitamins 1 tab 10/21/19 09:00 10/21/19 13:43 Theragran PER TUBE Not Given DAILY AR[facility] Zinc Sulfate 220 mg 10/21/19 09:00 10/21/19 13:44 Zinc Sulfate PER TUBE Not Given DAILY ARDEN - Exam General Appearance: NAD Neck: supple, no JVD Heart: RRR, no gallops Respiratory: no wheezes, no ronchi Gastrointestinal: soft, non-distended, no guarding, no rigidity Psychiatric: not oriented Hosp A/P - Plan DVT proph w/SCDs Severe symptomatic anemia suspected due to chronic GI blood loss Generalized weakness Severe protein calorie malnutrition status post PEG tube Hypertension Seizure disorder Hyperlipidemia Hypertension GERD Schizoaffective disorder Plan: 10/20 EGD and colonoscopy today. Will discontinue IV fluids later today. We will start tube feedings after the procedure. Recheck labs in a.m. Continue Protonix drip. Continue all other medications. 10/19 Continue monitoring hemoglobin and hematocrit Patient received 2 units of PRBC GI input appreciated Patient is scheduled for EGD and colonoscopy in a.m. Add add gentle IV hydration Continue IV Protonix drip Resume home medications Resume PEG tube feedings after colonoscopy Plan of care was discussed with the spouse over the phone. CODE STATUS verified as full code per spouse.
[2019-10-21] MEDS: Digoxin 0.125 MG TAB PER TUBE SCH (15:56)
[2019-10-21] MEDS: Escitalopram Oxalate 10 mg Tablet PO SCH (15:56)
[2019-10-21] MEDS: levETIRAcetam 500 mg/5 ml Oral Solution PER TUBE SCH ×2 (15:56→22:21)
[2019-10-21] MEDS ORDERED: Nitroglycerin 2% Ointment 1 INCH/1 GM Packet TOP PRN (16:06)
[2019-10-21] MEDS ORDERED: cloNIDine 0.1 MG TAB PO PRN (16:06)
[2019-10-21] MEDS ORDERED: hydrALAZINE 20 MG/ML VIAL SLOW IVP PRN (16:06)
--- NOTE | 2019-10-21 18:09 | OP ---
DATE OF PROCEDURE: 10/21/2019 SCREEN MAKING SUPERVISOR SURGEON: None. PROCEDURES PERFORMED: 1. Esophagogastroduodenoscopy, diagnostic. 2. Colonoscopy, incomplete secondary to very poor bowel prep. INDICATIONS: 1. Acute on chronic iron deficiency anemia. 2. Heme-positive stool. 3. Abnormal CT scan, showing mucosal thickening on the antimesenteric side of the descending colon. 4. Recent PEG tube placement. MEDICATIONS: See Anesthesia record. FINDINGS: After discussion of the risks, benefits, and alternatives of the procedure, informed consent was obtained and verified. Pre-endoscopic cardiopulmonary examination was satisfactory. Time-out was performed before sedation was achieved. Sedation was achieved with Anesthesia assistance in the endoscopy unit. The patient was kept in the supine position. Her mouth really does not open wide and it was quite difficult even to get a pediatric bite block in. She did have some abrasion to the upper gums with bite block placement. The upper endoscope was able to be advanced through the mouth and then down the esophagus under direct visualization. The esophageal mucosa appeared normal throughout with a normal-appearing Z-line. The endoscope was advanced into the stomach. Forward and retroflexed views of the entire gastric mucosa were obtained. Overall, the gastric mucosa appeared normal. The internal PEG bumper was examined. 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 I loosened up the PEG tube in order to examine underneath the bumper. Once the PEG tube was loosened, I was able to visualize quite distorted gastric mucosa with circumferential clean based ulceration underneath the bumper site. However, there was no high-risk stigmata of bleeding. There was no active bleeding or oozing from this area. I left the PEG tube external bumper more loose at a distance of 3 cm. The endoscope was advanced through the pylorus and into the first and second portions of the duodenum, which appeared unremarkable. The upper endoscope was completely withdrawn and the patient was repositioned. Digital rectal exam was performed, which demonstrated external hemorrhoids. A Pentax adult colonoscope was inserted into the anus and we attempted to advance the scope proximally. However, the quality of the bowel prep was very poor. There was a copious amount of solid and liquid stool filling the rectum and distal sigmoid colon. It was quickly determined that adequate visualization would be impossible. So, the endoscope was withdrawn and the colonoscopy portion of the procedure was aborted. The patient tolerated the procedure well. There were no immediate postprocedure complications. IMPRESSION: 1. Buried internal PEG bumper. Anatomic distortion with circumferential clean based ulceration underneath the internal PEG bumper, but no high-risk stigmata of bleeding, no active bleeding. The PEG tube external bumper distance readjusted to 3 cm. 2. Otherwise normal esophagogastroduodenoscopy. 3. Very poor colonoscopy prep, could not advance beyond the rectum. RECOMMENDATIONS: 1. Keep the PEG bumper at a distance of 3 cm, no tighter. 2. Continue PPI. 3. We will need to re-prep the patient and retry colonoscopy tomorrow in order to get an examination of the area in question in the descending colon. I spoke with the patient's on the phone, who is in agreement. Job ID: [id number]
[2019-10-21] MEDS: Atorvastatin Calcium 40 MG TAB PER TUBE SCH (22:21)
[2019-10-22] MEDS: GoLYTELY 4,000 ml Bottle PER TUBE SCH ×2 (03:46→15:52)
[2019-10-22 05:39] LABS: Albumin 2.8 g/dL (3.4-4.8); Anion Gap 10 mmol/L (10-20); BUN (Urea Nitrogen) 8 mg/dL (9.8-20.1); Calc. Creatinine Clearance 73 mL/min (70-130); Calcium 8.5 mg/dL (7.8-10.44); Carbon Dioxide 26 mmol/L (23-31); Chloride 103 mmol/L (98-107); Estimated GFR-MDRD Greater than 90; Glucose 113 mg/dL (83-110); Magnesium 1.8 mg/dL (1.6-2.6); Phosphorus 3.7 mg/dL (2.3-4.7); Sodium 136 mmol/L (136-145)
[2019-10-22 05:52] LABS: Potassium 2.9 mmol/L (3.5-5.1)
[2019-10-22 06:05] LABS: Band 3 % (5-11); Eosinophils 2 % (0-10); Hemoglobin 8.4 g/dL (12.0-16.0); Hypochromia MODERATE=16-30 cells (100X) (0-5/hpf); Lymphocytes 13 % (21-51); MDiff Complete? YES; Mean Corpuscular HGB CONC 30.1 g/dL (32.0-36.0); Mean Corpuscular Hemoglobin 21.4 pg (27.0-31.0); Mean Corpuscular Volume 71.1 fL (78.0-98.0); Mean Platelet Volume 9.6 fL (7.4-10.4); Microcytosis MODERATE=15-30 cells (100X) (0-5/hpf); Monocytes 11 % (0-10); Neutrophil 71 % (42-75); Platelet Count 465 thou/uL (130-400); Poikilocytosis SLIGHT = 6-15 cells (100X) (0-5/hpf); Polychromasia SLIGHT = 2-3 cells (100X) (0-2/hpf); RBC Distribution Width 25.7 % (11.5-14.5); Red Blood Cell (RBC) Count 3.92 mill/uL (4.20-5.40); White Blood Cell (WBC) Count 9.4 thou/uL (4.8-10.8)
[2019-10-22] MEDS ORDERED: Potassium Chloride 20 MEQ/100 ML PREMIX BAG IVPB SCH (08:00)
[2019-10-22] MEDS ORDERED: Potassium Chloride 20 MEQ in Premix Bag 1 BAG IVPB SCH (08:15)
[2019-10-22] MEDS ORDERED: Magnesium 2 GM/50 ML 2 GM in Premix Bag 1 BAG IVPB SCH ×2 (08:15→12:30)
[2019-10-22] MEDS ORDERED: PROPOFOL 200 MG/20 ML VIAL ONE (09:32)
--- NOTE | 2019-10-22 10:58 | OP ---
DATE OF PROCEDURE: 10/22/2019 ABLE BODIED WATCHMAN SURGEON: None. PROCEDURE PERFORMED: Flexible sigmoidoscopy. INDICATIONS: 1. Acute on chronic iron-deficiency anemia. 2. Heme-positive stool. 3. Abnormal CT scan, showing mucosal thickening on the antimesenteric side of the descending colon. 4. Incomplete attempted colonoscopy yesterday due to very poor prep, reattempting today. MEDICATIONS: See Anesthesia record. FINDINGS: After discussion of the risks, benefits, and alternatives of the procedure, informed consent was obtained and witnessed. Pre-endoscopic cardiopulmonary examination was satisfactory. Time-out was performed before sedation was achieved. Sedation was achieved with Anesthesia assistance in the endoscopy unit. Digital rectal exam was performed, which showed some external hemorrhoids. A Pentax adult colonoscope was inserted into the anus and passed forward in the usual fashion. At 35 cm which I estimate to be near the junction of the sigmoid and descending colon, there is an area of severe friability, slow oozing of blood, edema, and stricture. I am unable to advance the endoscope proximal to this area due to the circumferential edema, stricture, and friability. This area likely represents changes of chronic ischemic colitis. Note that this was seen on her prior colonoscopy, but on this examination I am unable to advance beyond it. Therefore, the endoscope was slowly withdrawn, examining the distal colon. There is diverticulosis throughout the sigmoid colon. Retroflexion in the rectum demonstrates internal hemorrhoids. The colonoscope was completely withdrawn, and the patient allowed to recover. The patient tolerated the procedure well. There were no immediate postprocedure complications. IMPRESSION: 1. Severe friability, oozing, edema, and stricture at 35 cm from the anal verge, likely representing chronic ischemic colitis. I was unable to advance the colonoscope more proximal to this area. 2. Sigmoid diverticulosis. 3. Internal hemorrhoids. RECOMMENDATIONS: 1. We will obtain surgical consultation. The patient may not be a good surgical candidate for partial colon resection, though. I have discussed the situation with the patient's . 2. Transfuse as needed. 3. Tube feeds can be resumed. Job ID: [id number]
[2019-10-22] MEDS: Multivit, Therapeutic 1 TAB PER TUBE SCH (12:45)
[2019-10-22] MEDS: Folic Acid 1 MG TAB PER TUBE SCH (12:45)
[2019-10-22] MEDS: levETIRAcetam 500 mg/5 ml Oral Solution PER TUBE SCH ×2 (12:45→23:12)
[2019-10-22] MEDS: Ascorbic Acid 500 mg Chewable Tablet PER TUBE SCH (12:45)
[2019-10-22] MEDS: Zinc Sulfate 220 MG CAP PER TUBE SCH (12:45)
[2019-10-22] MEDS: Cyanocobalamin (Vitamin B-12) 1,000 MCG TAB PO SCH (12:45)
--- NOTE | 2019-10-22 12:54 | PDOC.HOSPP ---
- Subjective Encounter Date: 10/22/19 Encounter Time: 08:00 non-verbal Subjective: Patient seen and examined for anemia. No overnight events. Blood pressure elevated per RN. No new GI bleeding. - Objective Vital Signs & Weight: Vital Signs (12 hours) Temp Pulse Resp BP Pulse Ox 10/22/19 07:48 98.3 F 79 18 189/74 H 100 10/22/19 03:37 98.1 F 79 12 98 Weight Admit Weight 147 lb 1.6 oz Weight 147 lb 1.6 oz I&O: 10/21/19 10/22/19 10/23/19 06:59 06:59 06:59 Intake Total 2400 Output Total 300 Balance 2100 Result Diagrams: 10/22/19 04:50 10/22/19 04:50 EKG Reviewed by me: Yes (Sinus rhythm on telemetry monitoring) Hospitalist ROS - Review of Systems ROS unobtainable: due to mental status - Medication Medications: Active Medications Generic Name Dose Route Start Last Admin Trade Name Freq PRN Reason Stop Dose Admin Acetaminophen 650 mg 10/19/19 22:33 10/21/19 22:23 Tylenol PO 650 mg Q4H PRN Administration Headache/Fever/Mild Pain (1-3) Ascorbic Acid 500 mg 10/21/19 09:00 10/22/19 12:45 Vitamin C PER TUBE 500 mg DAILY ARDEN Administration Atorvastatin Calcium 40 mg 10/20/19 21:00 10/21/19 22:21 Lipitor PER TUBE 40 mg HS ARDEN Administration Cyanocobalamin 1,000 mcg 10/21/19 09:00 10/22/19 12:45 Vitamin B-12 PO 1,000 mcg DAILY ARDEN Administration Digoxin 0.125 mg 10/20/19 15:00 10/21/19 15:56 Lanoxin PER TUBE 0.125 mg 1500 ARDEN Administration Escitalopram Oxalate 10 mg 10/20/19 15:00 10/21/19 15:56 Lexapro PO 10 mg 1500 ARDEN Administration Folic Acid 1 mg 10/21/19 09:00 10/22/19 12:45 Folvite PER TUBE 1 mg DAILY ARDEN Administration Hydralazine HCl 10 mg 10/21/19 16:06 10/21/19 16:11 Apresoline SLOW IVP 10 mg Q4H PRN Administration SBP GREATER THAN 160 Pantoprazole Sodium 80 mg/ 100 mls @ 10 mls/hr 07/31/20 18:15 10/21/19 19:36 Sodium Chloride IVPB 100 mls INF ARDEN Administration Dextrose/Sodium Chloride 1,000 mls @ 50 mls/hr 10/21/19 16:06 10/21/19 16:10 D5 0.9% Ns IV 10/22/19 23:59 1,000 mls .Q20H ARDEN Administration Magnesium Sulfate 2 gm/ Device 50 mls @ 100 mls/hr 10/22/19 12:30 10/22/19 12 :48 IVPB 10/22/19 14:30 50 mls NOW ARDEN Administration Levetiracetam 750 mg 10/20/19 21:00 10/22/19 12:45 Keppra Oral Solution PER TUBE 750 mg BID ARDEN Administration Multivitamins 1 tab 10/21/19 09:00 10/22/19 12:45 Theragran PER TUBE 1 tab DAILY ARDEN Administration Polyethylene Glycol/Electrolytes 4,000 ml 10/21/19 15:09 10/22/19 03:46 Golytely PER TUBE 10/22/19 23:59 4,000 ml NOW ARDEN Administration Zinc Sulfate 220 mg 10/21/19 09:00 10/22/19 12:45 Zinc Sulfate PER TUBE 220 mg DAILY ARDEN Administration - Exam General Appearance: NAD Neck: supple, no JVD Heart: RRR, no gallops Respiratory: no wheezes, no ronchi Gastrointestinal: soft, non-distended, no guarding, no rigidity Extremities: no cyanosis, no clubbing Hosp A/P - Plan DVT proph w/SCDs Severe symptomatic anemia suspected due to chronic GI blood loss Generalized weakness Severe protein calorie malnutrition status post PEG tube Hypokalemia Hypomagnesemia Hypertension Seizure disorder Hyperlipidemia Hypertension GERD Schizoaffective disorder Plan: 10/21 Change Protonix drip to p.o. Replace potassium and magnesium. Add carvedilol and amlodipine due to uncontrolled blood pressure. Recheck labs in a.m. Recheck potassium later today. Continue other medications. Colonoscopy today. I attempted to call the husbandno answer 10/20 EGD and colonoscopy today. Will discontinue IV fluids later today. We will start tube feedings after the procedure. Recheck labs in a.m. Continue Protonix drip. Continue all other medications. 10/19 Continue monitoring hemoglobin and hematocrit Patient received 2 units of PRBC GI input appreciated Patient is scheduled for EGD and colonoscopy in a.m. Add add gentle IV hydration Continue IV Protonix drip Resume home medications Resume PEG tube feedings after colonoscopy Plan of care was discussed with the spouse over the phone. CODE STATUS verified as full code per spouse.
[2019-10-22] MEDS ORDERED: Amlodipine 5 MG TAB PER TUBE SCH ×2 (13:00→13:15)
[2019-10-22] MEDS ORDERED: Carvedilol 6.25 MG TAB PER TUBE SCH (13:00)
[2019-10-22] MEDS: Dextrose 5 % And 0.9 % NaCl 1,000 ML IV SCH (13:42)
--- NOTE | 2019-10-22 14:10 | CON ---
DATE OF CONSULTATION: 10/22/2019 CHIEF COMPLAINT: Blood per rectum. HISTORY OF PRESENT ILLNESS: This is an 79-year-old female, who presents with a history of non-improving ischemic colitis in the left colon about 30 cm. Repeat colonoscopy today by Dr. Calloway shows no significant improvement. The patient is bedbound with dementia. She is not able to participate in history, is not able to communicate. She is a resident over at [facility]. Most of the history is obtained from the chart. MEDICAL HISTORY: Hyperlipidemia, GERD, seizures, hypertension, arthritis, dementia. SURGICAL HISTORY: PEG tube in April 2019. SOCIAL HISTORY: Nonverbal. Lives at [facility]. No smoking, alcohol, or other drugs. REVIEW OF SYSTEMS: Ten system review of systems is unable to obtain secondary to her dementia. PHYSICAL EXAMINATION: VITAL SIGNS: Blood pressure is 189/74, pulse 79, respirations 18, temperature 98.3. HEENT: Sclerae are anicteric. Oropharynx is clear. NECK: No lymphadenopathy. CHEST: Coarse breath sounds. HEART: Regular rate. ABDOMEN: Soft. It is mildly distended, but soft. She does have bowel sounds. Diffuse mildly tender without guarding or rebound. LABORATORY DATA: White blood cell count is 9, hemoglobin 8.4, platelet count is 465. Sodium 136, potassium 2.9, creatinine 0.64. CT scan on 10/18, masslike thickening in the descending colon. ASSESSMENT: 1. Nonhealing ischemic colitis in the left colon, obstructed based on Dr. Calloway's colonoscopy today. 2. Severe dementia. PLAN: Unfortunately, I do not think Ms. Lozada is a candidate for surgery. We will discuss with her . I would initiate comfort measures only at this point, she likely would never leave the hospital if she had a laparotomy and colon resection. Her only option would be colon resection with end colostomy. I think even that is likely overly aggressive. Job ID: [id number]
[2019-10-22] MEDS: Escitalopram Oxalate 10 mg Tablet PO SCH (14:35)
[2019-10-22] MEDS: Digoxin 0.125 MG TAB PER TUBE SCH (14:41)
[2019-10-22 16:31] LABS: Potassium 3.7 mmol/L (3.5-5.1)
[2019-10-22] MEDS: Carvedilol 6.25 MG TAB PO SCH (23:13)
[2019-10-22] MEDS: Atorvastatin Calcium 40 MG TAB PER TUBE SCH (23:13)
[2019-10-23] MEDS ORDERED: Pantoprazole 40 MG GRANULES PACKET PER TUBE SCH (09:00)
[2019-10-23] MEDS ORDERED: Amlodipine 5 MG TAB PER TUBE SCH (09:00)
[2019-10-23 09:05] LABS: #Eosinphils 0.1 thou/uL (0.0-0.7); #Monocytes 1.1 thou/uL (0.11-0.59); #Neutrophils 5.6 thou/uL (1.40-6.50); %Eosinophils 1.5 % (0.0-10.0); %Lymphocytes 13.3 % (21.0-51.0); %Monocytes 13.8 % (0.0-10.0); %Neutrophils 71.5 % (42.0-75.0); Hemoglobin 8.4 g/dL (12.0-16.0); Mean Corpuscular Hemoglobin 22.4 pg (27.0-31.0); Mean Corpuscular Volume 72.3 fL (78.0-98.0); Mean Platelet Volume 8.3 fL (7.4-10.4); Platelet Count 420 thou/uL (130-400); RBC Distribution Width 25.6 % (11.5-14.5); Red Blood Cell (RBC) Count 3.76 mill/uL (4.20-5.40); White Blood Cell (WBC) Count 7.8 thou/uL (4.8-10.8)
--- NOTE | 2019-10-23 09:07 | PRG ---
DATE OF SERVICE: 10/23/2019 SUBJECTIVE: Dr. Moyer evaluated Ms. Lozada yesterday and does not consider her to be a surgical candidate. There have been no acute events overnight. She is tolerating tube feeds well. OBJECTIVE: VITAL SIGNS: Temperature 97.9, pulse 82, blood pressure 140/63, 99% oxygen saturation on room air. GENERAL: No acute distress. HEART: Regular rate and rhythm. LUNGS: Clear to auscultation bilaterally. ABDOMEN: Soft and nontender to palpation. PEG site is examined. External bumper still at 3 cm. There is no significant leakage around the tube. SKIN: Looks good. EXTREMITIES: No peripheral edema. LABORATORY STUDIES: Hemoglobin 8.4, WBC 9.4, platelets 465. Sodium 136, potassium 3.7, BUN 8, creatinine 0.64. ASSESSMENT/PLAN: 1. Chronic ischemic colitis, left-sided. 2. Acute on chronic anemia, likely secondary to ongoing blood losses from this area of chronic colitis. 3. Severe debility. I appreciate Dr. Moyer's evaluation. She is not considered to be a surgical candidate even for diverting colostomy. This being the case, I would expect that the patient is going to continue to have ongoing blood loss, for which, there is really nothing we can do unless palliative care/hospice course is taken, I would recommend that she have periodic H and H checks and transfusion as needed, also add iron supplementation. It is possible that this ischemic process may progress to worsening stricture and obstruction in the future unfortunately. 4. 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 This was visualized on recent esophagogastroduodenoscopy. However, there was no active bleeding and no high-risk stigmata for bleeding. The PEG tube has been loosened to 3 cm, which should be a better distance for her. Continue with daily PPI. She continues to tolerate tube feeds well. GI will sign off, but please call back anytime with questions or concerns. Job ID: [id number]
[2019-10-23 09:25] LABS: Albumin 2.7 g/dL (3.4-4.8); Anion Gap 11 mmol/L (10-20); BUN (Urea Nitrogen) 8 mg/dL (9.8-20.1); BUN/Creatinine Ratio 11.43; Calc. Creatinine Clearance 66 mL/min (70-130); Calcium 8.2 mg/dL (7.8-10.44); Carbon Dioxide 23 mmol/L (23-31); Chloride 102 mmol/L (98-107); Estimated GFR-MDRD Greater than 90; Glucose 133 mg/dL (83-110); Magnesium 1.9 mg/dL (1.6-2.6); Potassium 3.2 mmol/L (3.5-5.1); Sodium 133 mmol/L (136-145)
[2019-10-23 09:38] LABS: Hypochromia MODERATE=16-30 cells (100X) (0-5/hpf); MDiff Complete? YES; Microcytosis MODERATE=15-30 cells (100X) (0-5/hpf); Ovalocytes SLIGHT = 2-5 cells (100X) (0-1/hpf); Platelet Morphology Comment Appears Increased; Polychromasia SLIGHT = 2-3 cells (100X) (0-2/hpf)
[2019-10-23] MEDS: Carvedilol 6.25 MG TAB PO SCH (10:28)
[2019-10-23] MEDS: Multivit, Therapeutic 1 TAB PER TUBE SCH (10:28)
[2019-10-23] MEDS: Ascorbic Acid 500 mg Chewable Tablet PER TUBE SCH (10:28)
[2019-10-23] MEDS: Zinc Sulfate 220 MG CAP PER TUBE SCH (10:29)
[2019-10-23] MEDS: Folic Acid 1 MG TAB PER TUBE SCH (10:29)
[2019-10-23] MEDS: levETIRAcetam 500 mg/5 ml Oral Solution PER TUBE SCH (10:29)
[2019-10-23] MEDS: Cyanocobalamin (Vitamin B-12) 1,000 MCG TAB PO SCH (10:30)
[2019-10-23 11:54] VITALS: BP 133/59; TEMP 98.8
[2019-10-23] MEDS: Escitalopram Oxalate 10 mg Tablet PO SCH (15:17)
[2019-10-23] MEDS: Digoxin 0.125 MG TAB PER TUBE SCH (15:17)
--- NOTE | 2019-10-23 19:31 | DIS ---
DATE OF ADMISSION: 10/19/2019 DATE OF DISCHARGE: 10/23/2019 DISCHARGE DISPOSITION: Return to group home. FOLLOWUP: Follow up with Dr. Richardson at the nursing facility. The patient was seen and examined on the day of discharge. No new overnight issues. DISCHARGE MEDICATIONS: 1. Amlodipine 5 mg daily. 2. Carvedilol 6.25 mg b.i.d. 3. Ferrous sulfate 220 mg b.i.d. 4. Protonix 40 mg daily. All other home medications were left unchanged. Basic metabolic profile after 1 week is recommended. Primary care physician advised to follow. The patient will benefit from monitoring hemoglobin and hematocrit every weekly for now. I also discussed the plan of care with the patient's primary physician, Dr. Richardson, over the phone. BRIEF HOSPITAL COURSE: The patient is an 79-year-old female, currently residing at group home, presented to the emergency room with severe anemia. She was found to have hemoglobin of 4.5. Workup in the emergency room showed hemoglobin of 5.3. She received a total of 2 units of PRBC. Hemoglobin has been stabilized at 8.4 over the past 48 hours. Iron profile showed serum iron of 9 with TIBC 308, ferritin of 42. The patient was evaluated by Gastroenterology. She underwent EGD that showed buried internal PEG bumper. The PEG tube external bumper distance was readjusted to 3 cm. Otherwise EGD was normal. Initial colonoscopy could not be done due to poor colonoscopy prep. Next day, the patient underwent flexible sigmoidoscopy that showed severe friability, oozing, edema, and stricture at 35 cm from the anal verge, likely representing chronic ischemic colitis. Dr. Calloway was unable to advance the colonoscope more proximal to this area. She also had sigmoid diverticulosis with internal hemorrhoids. The patient was evaluated by General Surgery, Dr. Moyer. Dr. Moyer recommended conservative management due to multiple comorbidities. The patient is probably not a candidate for surgery. The plan of care was discussed with the patient's family, who agreed with the current plan of care. Hospice was also offered to the family. However, family decided on the patient returning back to the nursing facility at this time. They will decide on hospice later. FINAL DIAGNOSES: 1. Severe symptomatic anemia due to chronic gastrointestinal blood loss from chronic ischemic colitis. 2. Generalized weakness secondary to above. 3. Severe protein-calorie malnutrition requiring PEG tube placement. 4. Hypokalemia, replaced and hypomagnesemia, replaced. 5. Hypertension, uncontrolled. The patient was started on carvedilol with amlodipine. 6. Seizure disorder. 7. Hyperlipidemia. 8. Gastroesophageal reflux disease. 9. Internal hemorrhoids. 10. Sigmoid diverticulosis. 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 External bumper was loosened to 3 cm. TIME SPENT: Time coordinating the discharge of this patient was 38 minutes. Job ID: [id number]
== END 2019-10-23 16:06 | DRG 393 ==
LOC: ERS 18:40 → 2SE 21:20
PROVIDERS: ADMIT Internal Medicine; ATTEND Internal Medicine
PROC: 30233N1 Transfusion of Nonautologous Red Blood Cells into Peripheral Vein, Percutaneous Approach (ICD-10-PCS; 2019-10-19)
PROC: 0DJD8ZZ Inspection of Lower Intestinal Tract, Via Natural or Artificial Opening Endoscopic (ICD-10-PCS; principal; 2019-10-21)
PROC: 0DJ08ZZ Inspection of Upper Intestinal Tract, Via Natural or Artificial Opening Endoscopic (ICD-10-PCS; 2019-10-21)
PROC: 0DJD8ZZ Inspection of Lower Intestinal Tract, Via Natural or Artificial Opening Endoscopic (ICD-10-PCS; 2019-10-22)
DX: K55.1 Chronic vascular disorders of intestine (principal); E43 Unspecified severe protein-calorie malnutrition; D62 Acute posthemorrhagic anemia; K94.23 Gastrostomy malfunction; Z68.24 Body mass index [BMI] 24.0-24.9, adult; Z20.828 Contact with and (suspected) exposure to other viral communicable diseases; E87.6 Hypokalemia; E83.42 Hypomagnesemia; I10 Essential (primary) hypertension; G40.909 Epilepsy, unspecified, not intractable, without status epilepticus; E78.5 Hyperlipidemia, unspecified; K21.9 Gastro-esophageal reflux disease without esophagitis; K64.8 Other hemorrhoids; K57.30 Diverticulosis of large intestine without perforation or abscess without bleeding; Y83.3 Surgical operation with formation of external stoma as the cause of abnormal reaction of the patient, or of later complication, without mention of misadventure at the time of the procedure; F25.9 Schizoaffective disorder, unspecified; K64.4 Residual hemorrhoidal skin tags; M19.90 Unspecified osteoarthritis, unspecified site; F03.90 Unspecified dementia, unspecified severity, without behavioral disturbance, psychotic disturbance, mood disturbance, and anxiety; Z79.899 Other long term (current) drug therapy; Z79.82 Long term (current) use of aspirin
CPT/HCPCS: 36415; 36430; 36600; 71045; 74160; 80048; 80053; 80069; 82274; 82607; 82728; 82746; 83010; 83540; 83550; 83735; 84484; 85025; 85046; 85610; 85730; 86850; 86900; 86901; 87635; 93005; C9113; J0360; J2704; J3475; J3490; P9016; Q9967; U0003

== ENCOUNTER 2019-11-19 10:10 | Observation (INO) | payer MEDICARE, BC, OTHER ==
[2019-11-19 11:20] LABS: #Eosinphils 0.2 thou/uL (0.0-0.7); #Lymphocytes 1.6 thou/uL (1.20-3.40); #Monocytes 2.1 thou/uL (0.11-0.59); #Neutrophils 11.5 thou/uL (1.40-6.50); %Basophils 0.1 % (0.0-1.0); %Eosinophils 1.2 % (0.0-10.0); %Lymphocytes 10.2 % (21.0-51.0); %Monocytes 13.7 % (0.0-10.0); %Neutrophils 74.8 % (42.0-75.0); Anisocytosis MODERATE=16-30 cells (100X) (0-5/hpf); Hemoglobin 8.2 g/dL (12.0-16.0); MDiff Complete? YES; Mean Corpuscular Hemoglobin 22.9 pg (27.0-31.0); Mean Corpuscular Volume 69.6 fL (78.0-98.0); Mean Platelet Volume 11.2 fL (7.4-10.4); Platelet Count 340 thou/uL (130-400); Poikilocytosis SLIGHT = 6-15 cells (100X) (0-5/hpf); RBC Distribution Width 23.1 % (11.5-14.5); Red Blood Cell (RBC) Count 3.58 mill/uL (4.20-5.40); White Blood Cell (WBC) Count 15.4 thou/uL (4.8-10.8)
[2019-11-19 11:26] LABS: ALT (SGPT) 43 U/L (8-55); AST (SGOT) 27 U/L (5-34); Albumin 2.8 g/dL (3.4-4.8); Alkaline Phosphatase 209 U/L (40-110); Anion Gap 13 mmol/L (10-20); BUN (Urea Nitrogen) 20 mg/dL (9.8-20.1); Bilirubin, Total 0.4 mg/dL (0.2-1.2); Calc. Creatinine Clearance 0 mL/min (70-130); Calcium 8.7 mg/dL (7.8-10.44); Carbon Dioxide 24 mmol/L (23-31); Chloride 97 mmol/L (98-107); Estimated GFR-MDRD Greater than 90; Globulin 3.9 g/dL (2.4-3.5); Glucose 108 mg/dL (83-110); Lipase 31 U/L (8-78); Potassium 4.1 mmol/L (3.5-5.1); Protein, Total 6.7 g/dL (6.0-8.3); Sodium 130 mmol/L (136-145)
[2019-11-19 13:35] LABS: Bilirubin Negative (Negative); Blood, Urine Negative (Negative); Clarity Clear (Clear); Glucose, Urine (Dipstick) Normal (Negative); Ketone, Urine Negative (Negative); Leukocyte Negative Leu/uL (Negative); Nitrite Negative (Negative); Protein, Urine (Dipstick) 10 mg/dL (Neg-Trace); Urobilinogen Normal mg/dL (Less than 2); pH, Urine 6.5 (5.0-9.0)
[2019-11-19 13:36] LABS: Specific Gravity, Urine 1.054 (1.002-1.036)
--- NOTE | 2019-11-19 13:48 | CT ---
CT ABDOMEN AND PELVIS WITH IV CONTRAST: Date: 11/19/2019 INDICATION: Abdominal pain. Question PEG tube dislodgement. Comparison made to recent CT abdomen of 10/20/2019. FINDINGS: Lung bases show small right effusion and mild bibasilar atelectasis. Liver, spleen and pancreas are unremarkable. PEG tube remains in place and appears adequately positioned within the gastric lumen. There is increa sed density within the subcutaneous tissues along the PEG tube and as it passes through the anterior abdominal wall which may represent edema or injury from partial dislodgement. The PEG tube bulb has b een advanced slightly into the lumen of the stomach, whereas previously it was adherent to the anteri or abdominal wall. Gallstones are again noted. Kidneys unremarkable. Small bowel loops are normal caliber. There is abnormal stool-filled dilatation of the right and transverse colon to the splenic flexure. T here is an area of mucosal density and luminal narrowing in the upper descending colon concerning for mucosal mass. There is evidence of obstructive change at this site. There is mural thickening in the upper descending colon and splenic flexure region suggesting stercoral colitis given the large amoun t of stool present. There may be developing fecal impaction at this site. The colon below this area of luminal narrowing is normal to the level of the rectosigmoid, at which p oint there is evidence of fecal impaction with stool-filled dilated rectum and sigmoid measuring up t o 8.4 cm diameter. Early mural thickening at this site may also represent stercoral colitis. No free fluid. No other interval change. IMPRESSION: 1. PEG tube has bulb within the gastric lumen in the region of the antrum. There has been slight dis lodgement and some edema within the subcutaneous tissues along the course of the tube since the prior exam as discussed above. 2. There continues to be evidence of a mucosal mass producing luminal narrowing in the upper to mid descending colon. This appears to be producing obstructive change with a large amount of stool in the colon proximal to this site. There is dilatation and mural thickening in the upper descending colon to the splenic flexure concerning for colitis as described above. 3. In addition, there is evidence of fecal impaction with luminal dilatation and mural thickening in the rectosigmoid as discussed above. 4. Gallstones are again noted and were described previously. 5. No other interval change. POS: AGW
[2019-11-19] MEDS ORDERED: metroNIDAZOLE 500 MG/100 ML BAG ONE (14:11)
[2019-11-19] MEDS ORDERED: Ondansetron PF 4 MG/2 ML Vial IVP PRN (15:47)
[2019-11-19] MEDS ORDERED: Guaifenesin DM 100-10/5 ML UDCUP PO PRN (15:47)
[2019-11-19] MEDS ORDERED: Bisacodyl 10 MG SUPP PR PRN (15:47)
[2019-11-19] MEDS ORDERED: Acetaminophen 325 MG TAB PO PRN (15:47)
[2019-11-19] MEDS ORDERED: Lactated Ringer's 1,000 ML IV SCH (16:00)
--- NOTE | 2019-11-19 17:02 | HP ---
HISTORY OF PRESENT ILLNESS: Please note, majority of this history is obtained by talking to ER physician and prior medical records as the patient cannot contribute to history in anyway. She is awake, but does not communicate. She was sent over from [facility] because of dislodgement of a PEG tube. On arrival here, the patient had a PEG tube reinstatement by ER physician, Dr. Adams. She had a CAT scan done which showed severe constipation and fecal impaction. ER resident disimpacted the rectal vault. The patient developed small amount of rectal bleeding. The patient was also recently hospitalized here and has had similar issue. She has had consultation with Dr. Td Calloway, and had attempted sigmoidoscopy done. She was found to have had friable descending colon and sigmoid mucosa. The scope could not be passed due to risk of perforation. She has had these findings from March of this year. Dr. Moyer was consulted for help with surgery for the same due to longstanding issues in the descending colon. Per parents prior note, the patient is not a candidate for surgery and is high risk for laparotomy. Currently, Ms. Lozada is not in any distress at present. The hospitalist was called in for possible colitis with dehydration and stool impaction for admission. 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 PERSONAL HISTORY: Does not abuse alcohol or drugs. No history of smoking. She is currently a resident of [facility]. ALLERGIES: NO KNOWN DRUG ALLERGIES. CURRENT MEDICATIONS: The patient was discharged on 3rd of this month on; 1. Keppra 750 mg twice daily. 2. Folic acid 1 mg daily. 3. Colace 100 mg daily. 4. Digoxin 0.125 mg daily. 5. Atorvastatin 40 mg daily. 6. Aspirin 81 mg daily. 7. Vitamin C 500 mg daily. 8. Tylenol 3 q.6 hourly p.r.n. 9. K-Dur daily. 10. Multivitamin 1 tablet once daily. 11. Zinc 50 mg daily. 12. Norvasc 5 mg daily. 13. Carvedilol 6.25 mg twice daily. 14. Vitamin B12 1000 mcg p.o. daily. 15. Lexapro 10 mg daily. 16. Ferrous sulfate 220 mg p.o. twice daily. 17. Protonix 40 mg daily. FAMILY HISTORY: Cannot be obtained as patient is not communicating at present nor oriented. CODE STATUS: The patient carries out of hospital do not attempt to resuscitate paper signed on 04/18/2019. REVIEW OF SYSTEMS: Cannot be obtained as the patient is not oriented and cannot participate. PHYSICAL EXAMINATION: GENERAL: The patient is an 79-year-old female who is currently not in any acute distress. VITAL SIGNS: Blood pressure 146/64, pulse 84 per minute, respiratory rate 16 per minute, temperature 99.1 degrees Fahrenheit, saturating 95% on room air. NECK: Supple. No elevated JVD. HEENT: Eyes; the patient opens left eye with pupils reacting to light. Ms. Lozada closes her right eye and I am unable to pry it open. Oral cavity, mucous membranes are dry. No exudates or congestion. CARDIOVASCULAR: S1 and S2 heard, regular rhythm. RESPIRATORY: Air entry 1+ bilateral. No rales or rhonchi. ABDOMEN: Slightly distended, specifically around the PEG tube insertion site. She also has bit of tenderness around this area. No rebound. Bowel sounds are heard. EXTREMITIES: The patient has gross wasting of all 4 extremities. She has bilateral footdrop. She likely has an ulcer on the left heel and has wound dressing placed yesterday at the intermediate. She also has contractures of all extremities except for right upper extremity, which to some extent I have seen her move. VASCULAR SYSTEM: Peripheral pulses 1+ bilateral. No ischemic ulcers. 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 She barely moves right upper extremity. She has contractures with footdrop as well. PSYCHIATRIC: Cannot be assessed as the patient is not oriented. LABORATORY DATA: White count of 15, hemoglobin and hematocrit of 8 and 24, platelet count 340, MCV is 69 with 74% neutrophils. Sodium 130, serum bicarb 24, BUN 20, creatinine 0.6, serum glucose 108. AST and ALT within normal limits, alkaline phosphatase 209, albumin 2.9, lipase 31. CT of the abdomen and pelvis with IV contrast done shows PEG tube, bulb in the gastric lumen in the region of the antrum. There is slight dislodgement and some edema within the subcutaneous tissues along the course of the tube since the prior exam. There is evidence of mucosal mass producing luminal narrowing in the upper to mid descending colon. This appears to produce obstructive change with a large amount of stool in the colon proximal to this site. There is dilatation and mural thickening in the upper descending colon to the splenic flexure concerning for colitis. There is also evidence of fecal impaction with luminal dilatation and mural thickening in the rectosigmoid. Gallstones are seen. CLINICAL IMPRESSION AND PLAN: The patient will be placed under observation on medical floor. She will be on Cipro and Flagyl for now. The patient appears to have longstanding history of possible obstruction in the upper descending colon area. She also has functional quadriparesis and is essentially bed bound. She has fecal impaction with stercoral colitis as well. Her overall prognosis is very poor. The patient apparently is not a surgical candidate for laparotomy. It is unclear if she is a candidate for laparoscopic diverting colostomy to help move her bowels. We will obtain consultation with Dr. Td Calloway and Dr. Moyer in the morning. Both the above consults have seen her before. We will continue her digoxin, Lexapro, Keppra, Protonix as before. COVID-19 PCR has been ordered in the ER and follow up on that. We will keep her n.p.o. for now and she will be gently hydrated with lactated Ringer at 70 mL per hour. Job ID: [id number]
[2019-11-19 18:46] VITALS: BMI 28.8
[2019-11-19] MEDS ORDERED: levETIRAcetam 500 MG TAB PER TUBE SCH (21:00)
[2019-11-19] MEDS: Carvedilol 6.25 MG TAB PO SCH (22:44)
[2019-11-19] MEDS ORDERED: levETIRAcetam In NaCl (Iso-Os) 750 MG in Premix Bag 1 BAG IVPB SCH (23:00)
[2019-11-19] MEDS ORDERED: ADMIXTURE FEE IVPB SCH (23:15)
[2019-11-19] MEDS ORDERED: NACL IVPB SCH (23:15)
[2019-11-19] MEDS ORDERED: LEVETIRACETAM IVPB SCH (23:15)
[2019-11-19] MEDS: metroNIDAZOLE 500 MG in Premix Bag 1 BAG IVPB SCH (23:16)
[2019-11-20] MEDS: metroNIDAZOLE 500 MG in Premix Bag 1 BAG IVPB SCH (06:16)
[2019-11-20 06:21] LABS: #Eosinphils 0.2 thou/uL (0.0-0.7); #Lymphocytes 1.3 thou/uL (1.20-3.40); #Monocytes 1.8 thou/uL (0.11-0.59); #Neutrophils 8.9 thou/uL (1.40-6.50); %Basophils 0.1 % (0.0-1.0); %Eosinophils 1.3 % (0.0-10.0); %Lymphocytes 10.8 % (21.0-51.0); %Monocytes 14.9 % (0.0-10.0); %Neutrophils 72.9 % (42.0-75.0); Mean Corpuscular Hemoglobin 21.5 pg (27.0-31.0); Mean Corpuscular Volume 69.5 fL (78.0-98.0); Mean Platelet Volume 10.8 fL (7.4-10.4); Platelet Count 349 thou/uL (130-400); RBC Distribution Width 23.2 % (11.5-14.5); Red Blood Cell (RBC) Count 3.27 mill/uL (4.20-5.40); White Blood Cell (WBC) Count 12.2 thou/uL (4.8-10.8)
[2019-11-20 06:25] LABS: Anion Gap 15 mmol/L (10-20); BUN (Urea Nitrogen) 19 mg/dL (9.8-20.1); Calc. Creatinine Clearance 70 mL/min (70-130); Calcium 8.4 mg/dL (7.8-10.44); Carbon Dioxide 22 mmol/L (23-31); Chloride 98 mmol/L (98-107); Estimated GFR-MDRD Greater than 90; Glucose 100 mg/dL (83-110); Potassium 3.9 mmol/L (3.5-5.1); Sodium 131 mmol/L (136-145)
[2019-11-20] MEDS ORDERED: Acetaminophen 650 MG Suppository PR PRN (06:46)
[2019-11-20] MEDS ORDERED: Enoxaparin Sodium 40 MG/0.4 ML SYRINGE SC SCH (09:00)
[2019-11-20] MEDS ORDERED: NACL IVPB SCH (09:00)
[2019-11-20] MEDS ORDERED: ADMIXTURE FEE IVPB SCH (09:00)
[2019-11-20] MEDS ORDERED: Pantoprazole 40 MG GRANULES PACKET PER TUBE SCH (09:00)
[2019-11-20] MEDS ORDERED: Escitalopram Oxalate 10 mg Tablet PO SCH (09:00)
[2019-11-20] MEDS ORDERED: Digoxin 0.125 MG TAB PER TUBE SCH (09:00)
[2019-11-20] MEDS ORDERED: Docusate 100 MG CAP PER TUBE SCH (09:00)
[2019-11-20] MEDS ORDERED: LEVETIRACETAM IVPB SCH (09:00)
--- NOTE | 2019-11-20 09:37 | PDOC.GSPN ---
Surgery Progress Note: Subj - Subjective Narrative: Patient is an 79 year old female who presents for evaluation of bowel obstruction and colitis. Information gathered from previous notes, as patient is a poor historical source due to her dementia. Surgery Progress Note: Obj - Vital signs Vital signs: Vital Signs - Most Recent Temp Pulse Resp BP Pulse Ox 99.8 F H 94 16 134/70 99 11/20/19 07:49 11/20/19 07:49 11/20/19 07:49 11/20/19 07:49 11/20/19 07:49 - Physical Exam General: no distress Cardiovascular: regular rate and rhythm Respiratory: clear to auscultation Abdomen: non tender, positive bowel sounds, distended, other (PEG tube in place , covered with a bandage) Surgery Progress Note: Results - Labs Result Diagrams: 11/20/19 05:41 11/20/19 05:42 Lab results: Laboratory Results - last 24 hr 11/20/19 11/20/19 05:41 05:42 WBC 12.2 H RBC 3.27 L Hgb 7.0 L Hct 22.7 L MCV 69.5 L MCH 21.5 L MCHC 31.0 L RDW 23.2 H Plt Count 349 MPV 10.8 H Neutrophils % 72.9 Neutrophils % (Manual) Not Reportable Lymphocytes % 10.8 L Monocytes % 14.9 H Eosinophils % 1.3 Basophils % 0.1 Neutrophils # 8.9 H Lymphocytes # 1.3 Monocytes # 1.8 H Eosinophils # 0.2 Basophils # 0.0 Sodium 131 L Potassium 3.9 Chloride 98 Carbon Dioxide 22 L Anion Gap 15 BUN 19 Creatinine 0.67 Estimated GFR (MDRD) Greater than 90 Glucose 100 Calcium 8.4 Surgery Progress Note: A/P - Plan Plan: Colitis and rectosigmoid bowel obstruction: Patient is not a good surgical candidate due to her failed chemical stress test earlier this year as well as her dementia. We will discuss the risks and benefits of surgery with the patients caregiver. Would recommend hospice care and symptomatic management. Will discuss with family. Addendum - Physician - Physician Attestation Date/Time: 11/20/19 9640 I personally performed or re-performed the physical examination and medical decision making. I have verified all student documentation or findings, including history, physical exam and/or medical decision making. Discussed with Dr. Hou. Given her advanced dementia and CAD she would be high risk for any surgical procedures. Family agrees to palliative care.
[2019-11-20] MEDS: Carvedilol 6.25 MG TAB PO SCH (10:16)
[2019-11-20 11:39] VITALS: BP 127/69; TEMP 99.9
[2019-11-20 12:00] LABS: SARS-CoV-2 MS2 Positive; SARS-CoV-2 N Gene Negative; SARS-CoV-2 S Gene Negative; SARS-CoV-2 by NAA Not Detected (NotDetected); SARS-CoV-2 orf1ab Negative
--- NOTE | 2019-11-20 15:20 | DIS ---
DATE OF ADMISSION: 11/19/2019 DATE OF DISCHARGE: 11/20/2019 DISCHARGE DISPOSITION: [facility] with [facility]. PRIMARY DISCHARGE DIAGNOSES: Large bowel obstruction with likely mass in the upper descending colon leading to fecal impaction and stercoral colitis. The patient is very poor surgical candidate for either laparotomy or laparoscopy and is for hospice/comfort measures. 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 PROCEDURES DONE DURING HOSPITALIZATION: The patient has had CT of the abdomen and pelvis with IV contrast done showed possible mucosal mass producing luminal narrowing in the upper to mid descending colon. This is producing obstructive change with a large amount of stool in the proximal colon. There is also dilatation and mural thickening in the upper descending colon to the splenic flexure concerning for colitis. There is evidence of fecal impaction with luminal dilatation and mural thickening of the rectosigmoid, gallstones are seen. PEG tube is seen in the gastric lumen. There is some edema of the subcutaneous tissues along the course of the tube. Hemoglobin and hematocrit of 7 and 22 and platelet count 349. White count of 12, BUN is 19, creatinine 0.6, serum bicarb 22, and albumin 2.8. COVID -19 PCR was not detected on 11/19/2019. DISCHARGE MEDICATIONS: 1. Vitamin C 500 mg p.o. daily. 2. Aspirin 81 mg p.o. daily. 3. Digoxin 0.125 mg p.o. daily. 4. Keppra 750 mg p.o. twice daily. 5. Multivitamin one tablet once daily. 6. Senokot one tablet daily. 7. Norvasc 5 mg daily. 8. Coreg 6.25 mg twice daily. 9. Lexapro 10 mg daily. 10. Ferrous sulfate 220 mg p.o. twice daily. 11. Protonix 40 mg daily. ALLERGIES: NO KNOWN DRUG ALLERGIES. BRIEF COURSE DURING HOSPITALIZATION: The patient initially was sent over from [facility] for dislodgement of PEG tube. The patient has had reinstatement of her PEG tube in the emergency room. She has had some leakage around her PEG site. She had a CT abdomen with contrast done, which showed PEG tube to be in the gastric lumen. The CAT scan also showed fecal impaction with possible mass in the descending colon. She has had prior sigmoidoscopy done, which showed friable colonic mucosa. In view of this, a consultation with Dr. Moyer was requested. The patient is not a candidate for laparotomy or laparoscopic surgery in view of multiple comorbid conditions and a positive stress test from last year. I have discussed these findings with her , Mr. Lozada. The patient likely will have progressive obstruction of her colon in the near future. She was already under [facility] with [facility] and this will be continued at the long term. Her overall prognosis is very poor. is clearly aware of the above factors and is aware that we are discharging her back to the long term. Please note , I have seen and examined the patient on the day of discharge. Job ID: [id number] MTDD
== END 2019-11-20 13:05 ==
LOC: ERS 10:10 → T4-A 15:19 → INTOOBSV 15:19
PROVIDERS: ADMIT Internal Medicine; ATTEND Internal Medicine
DX: K56.609 Unspecified intestinal obstruction, unspecified as to partial versus complete obstruction (principal); K52.89 Other specified noninfective gastroenteritis and colitis; K56.41 Fecal impaction; R53.2 Functional quadriplegia; R47.01 Aphasia; L97.429 Non-pressure chronic ulcer of left heel and midfoot with unspecified severity; I10 Essential (primary) hypertension; E78.5 Hyperlipidemia, unspecified; F25.9 Schizoaffective disorder, unspecified; F41.9 Anxiety disorder, unspecified; F32.9 Major depressive disorder, single episode, unspecified; E44.0 Moderate protein-calorie malnutrition; Z68.28 Body mass index [BMI] 28.0-28.9, adult; Z79.82 Long term (current) use of aspirin; Z79.899 Other long term (current) drug therapy; Z20.828 Contact with and (suspected) exposure to other viral communicable diseases
CPT/HCPCS: 43762; 51701; 74177; 80048; 80053; 81003; 83605; 83690; 85025 ×2; 86850; 86900; 86901; 96365; 96367 ×2; 96376 ×2; 97139; 99285; G0378 ×3; J1953; U0003; 36415; 87635; J0744; J3490; Q9967

== ENCOUNTER 2019-11-20 17:30 | Emergency (ER) | payer MEDICARE, BC ==
[2019-11-20 18:13] LABS: Hemoglobin 7.8 g/dL (12.0-16.0); Mean Corpuscular HGB CONC 31.1 g/dL (32.0-36.0); Mean Corpuscular Hemoglobin 21.5 pg (27.0-31.0); Mean Platelet Volume 10.5 fL (7.4-10.4); Platelet Count 412 thou/uL (130-400); RBC Distribution Width 22.9 % (11.5-14.5); Red Blood Cell (RBC) Count 3.62 mill/uL (4.20-5.40); White Blood Cell (WBC) Count 12.9 thou/uL (4.8-10.8)
[2019-11-20 18:19] LABS: INR-International Normal Ratio 1.1; PTT 33.6 sec (22.9-36.1); Prothrombin Time 14.1 sec (12.0-14.7)
[2019-11-20 18:31] LABS: ALT (SGPT) 37 U/L (8-55); AST (SGOT) 29 U/L (5-34); Albumin 2.9 g/dL (3.4-4.8); Alkaline Phosphatase 176 U/L (40-110); Anion Gap 16 mmol/L (10-20); BUN (Urea Nitrogen) 19 mg/dL (9.8-20.1); Bilirubin, Total 0.4 mg/dL (0.2-1.2); Calc. Creatinine Clearance 0 mL/min (70-130); Calcium 8.5 mg/dL (7.8-10.44); Carbon Dioxide 24 mmol/L (23-31); Chloride 98 mmol/L (98-107); Estimated GFR-MDRD Greater than 90; Globulin 3.8 g/dL (2.4-3.5); Glucose 118 mg/dL (83-110); Potassium 3.8 mmol/L (3.5-5.1); Protein, Total 6.7 g/dL (6.0-8.3); Sodium 134 mmol/L (136-145)
--- NOTE | 2019-11-20 18:32 | CT ---
CT abdomen and pelvis with IV contrast HISTORY: Abdomen pain. COMPARISON: 11/19/2019. FINDINGS: Prominent calcification throughout the arterial structures. Anterior upper abdomen percutan eous feeding catheter in place. Stranding remains within the fat at the subcutaneous portion of the catheter, similar in appearance to the prior study. Balloon is in the appropriate location. Tiny cyst of the left kidney is stable. There are hyperdense stones in the dependent portion of the g allbladder lumen. Large masslike soft tissue density involving predominantly the lateral wall of the upper left: Is aga in demonstrated. Large amount of fecal material appears impacted immediately superior to it. Fecal distention of the rectum now measures up to 7.8 cm. IMPRESSION : Subtle subcutaneous fat stranding around the PEG is unchanged in appearance. No focal abscess collect ion or evidence of dislodgment. Large masslike abnormality with partial obstruction at the left colon is again demonstrated. Please c onsider endoscopic evaluation. Fecal impaction of the rectum. Cholelithiasis. Atherosclerosis..
[2019-11-20 18:53] LABS: Anisocytosis MODERATE=16-30 cells (100X) (0-5/hpf); Band 20 % (5-11); Eosinophils 1 % (0-10); Hypochromia SLIGHT = 6-15 cells (100X) (0-5/hpf); Lymphocytes 11 % (21-51); MDiff Complete? YES; Microcytosis MODERATE=15-30 cells (100X) (0-5/hpf); Monocytes 15 % (0-10); Neutrophil 48 % (42-75); Platelet Morphology Comment Appears Increased; Polychromasia MODERATE = 3-4 cells (100X) (0-2/hpf); Reactive Lymphocytes 5 % (0-10); Schistocytes SLIGHT = 2-5 cells (100X) (0-1/hpf); Target Cells MODERATE= 6-15 cells (100X) (0-1/hpf); Tear Drops SLIGHT = 2-5 cells (100X) (0-1/hpf)
== END 2019-11-20 20:12 ==
LOC: ERS 17:30
DX: K94.20 Gastrostomy complication, unspecified (principal); K56.609 Unspecified intestinal obstruction, unspecified as to partial versus complete obstruction; I10 Essential (primary) hypertension; K21.9 Gastro-esophageal reflux disease without esophagitis; E78.5 Hyperlipidemia, unspecified; F41.9 Anxiety disorder, unspecified; F32.9 Major depressive disorder, single episode, unspecified; F20.9 Schizophrenia, unspecified; Z79.82 Long term (current) use of aspirin; Z79.899 Other long term (current) drug therapy
CPT/HCPCS: 36415; 74177; 83605; 85610; 85730; Q9967